=== PATIENT | male | born 1940 | race Caucasian/White ===

== ENCOUNTER → 2017-03-26 | Outpatient (CLI) | payer MEDICARE, MEDICAID ==
[~2017-03-26] MED LIST: AMLODIPINE BESYL5 MG PO; BACTROBAN CREAM15 GM PO; CIPROFLOXACIN500 MG PO; CLOPIDOGREL75 MG PO; JANUVIA100 MG PO; KENALOG 0.025%15 GM T; METFORMIN HCL1000 MG PO; NOVOLOG 70/30 M10 ML SC; OMEPRAZOLE D/R20 MG PO; ZITHROMAX250 MG PO; ZOFRAN4 MG PO
[2017-03-26 07:58] LABS: BASO # 0.1 10*3/uL (0.0-0.1); BASO % 1.3 % (0.0-1.0); EOS # 0.2 10*3/uL (0.0-0.4); EOS % 2.6 % (1.0-4.0); HEMATOCRIT 37.1 % (42.0-52.0); HEMOGLOBIN 12.3 g/dl (14.0-18.0); LYMPH # 1.8 10*3/uL (1.3-4.4); LYMPH % 23.1 % (27.0-41.0); MEAN CELL VOLUME 88.5 fl (80.0-94.0); MEAN CORPUSCULAR HGB 29.4 pg (27.0-31.0); MEAN CORPUSCULAR HGB CONC 33.2 g/dl (33.0-37.0); MEAN PLATELET VOLUME 9.4 fl (9.6-12.3); MONO # 0.8 10*3/uL (0.1-1.0); MONO % 10.2 % (3.0-9.0); NEUT # 4.7 10*3/uL (2.3-7.9); NEUT % 62.5 % (47.0-73.0); PLATELET COUNT AUTOMATED 314 10*3/uL (130-400); RED BLOOD COUNT 4.19 10*6/uL (4.50-5.90); RED CELL DISTRI WIDTH 13.1 % (0-14.5); WHITE BLOOD COUNT 7.6 10*3/uL (4.8-10.8)
[2017-03-26 08:18] LABS: ALBUMIN 3.6 gm/dl (3.1-4.5); ALKALINE PHOSPHATASE 63 U/L (45-117); BUN 19 mg/dl (7-24); CHLORIDE 99 mmol/L (98-107); CHOLESTEROL 168 mg/dL (<200); CREATININE 1.38 mg/dL (0.70-1.30); HDL CHOLESTEROL 46 mg/dl (40-60); LDL CHOLESTEROL 73 mg/dL (9-159); SGOT/AST 13 IU/L (3-35); SGPT/ALT 18 U/L (12-78); SODIUM 135 mmol/L (136-145); TOTAL PROTEIN 7.5 gm/dL (6.4-8.2); TRIGLYCERIDES 243 mg/dl (<150); VLDL CHOLESTEROL 49 mg/dL (6-40)
== END | disposition home or self-care (01) ==
LOC: LAB 07:28
PROVIDERS: Internal Medicine
DX: Z12.5 Encounter for screening for malignant neoplasm of prostate (principal); E78.5 Hyperlipidemia, unspecified; E11.9 Type 2 diabetes mellitus without complications; I10 Essential (primary) hypertension

== ENCOUNTER 2017-04-08 16:13 | Inpatient (IN) | payer MEDICARE, MEDICAID ==
[~2017-04-08] VITALS: Ht 175.3 cm; Wt 136.2 kg
--- NOTE | ~2017-04-08 | ST ---
[place], [place] EXERCISE STRESS TEST REPORT NAME: MIR VALIENTE UNIT #: [id number] ROOM: 508 DOCTOR: MARCO A PHAM MD BIRTHDATE: [birth year] DOS: 04/12/2017 REFERRING PHYSICIAN: Dr. Alexander. INDICATION: Elevated troponin. The patient underwent standard protocol Lexiscan stress EKG. The patient's baseline EKG showed atrial fibrillation with left bundle branch block. Baseline heart rate 72 beats per minute with a blood pressure of 138/82. The patient's peak heart rate 84 with a blood pressure 130/72. The patient's EKG stress was nondiagnostic secondary to left bundle branch block. No chest pain. No significant arrhythmias were noted. SUMMARY OF FINDINGS: Nondiagnostic Lexiscan stress EKG. Please see separate report for perfusion scan results. MARCO A PHAM MD CM:STRESS:EXERCISE STRESS TEST REPORT [id number] MARCO A PHAM MD
[2017-04-08] MEDS ORDERED: ASPIRIN CHEWABL81 MG PO (16:19)
[2017-04-08] MEDS ORDERED: SIMVASTATIN40 MG PO (16:20)
[2017-04-08] MEDS ORDERED: COREG6.25 MG PO (16:20)
[2017-04-08 16:21] VITALS: BP 148/94
[2017-04-08] MEDS ORDERED: OMEPRAZOLE20 M2 PO (16:21)
[2017-04-08 16:54] LABS: BASO % 0.2 % (0.0-1.0); EOS # 0.1 10*3/uL (0.0-0.4); EOS % 0.7 % (1.0-4.0); HEMATOCRIT 34.5 % (42.0-52.0); HEMOGLOBIN 12.4 g/dl (14.0-18.0); LYMPH # 1.5 10*3/uL (1.3-4.4); LYMPH % 11.9 % (27.0-41.0); MEAN CELL VOLUME 82.1 fl (80.0-94.0); MEAN CORPUSCULAR HGB 29.5 pg (27.0-31.0); MEAN CORPUSCULAR HGB CONC 35.9 g/dl (33.0-37.0); MEAN PLATELET VOLUME 8.8 fl (9.6-12.3); MONO # 1.1 10*3/uL (0.1-1.0); MONO % 9.1 % (3.0-9.0); NEUT # 9.7 10*3/uL (2.3-7.9); NEUT % 77.7 % (47.0-73.0); PLATELET COUNT AUTOMATED 332 10*3/uL (130-400); RED CELL DISTRI WIDTH 12.3 % (0-14.5); WHITE BLOOD COUNT 12.5 10*3/uL (4.8-10.8)
[2017-04-08 17:10] LABS: ALBUMIN 3.1 gm/dl (3.1-4.5); ALKALINE PHOSPHATASE 59 U/L (45-117); BUN 15 mg/dl (7-24); CHLORIDE 81 mmol/L (98-107); CREATININE 1.13 mg/dL (0.70-1.30); MAGNESIUM 1.6 mg/dL (1.5-2.1); POTASSIUM 3.7 mmol/L (3.5-5.1); SGOT/AST 17 IU/L (3-35); SGPT/ALT 16 U/L (12-78); TOTAL PROTEIN 7.1 gm/dL (6.4-8.2)
[2017-04-08 17:15] LABS: SODIUM 116 mmol/L (136-145); TROPONIN I 0.048 ng/ml (<0.045)
--- NOTE | 2017-04-08 18:40 | NUR ---
A 76, admitted to ICCU, under the services of SAMEER Multani DO with a diagnosis of hyponatremia, elevated troponin. Chief complaint is diarrhea and vomiting. Patient arrived via stretcher from ER. Monitor applied. Initial assessment completed. Vital signs taken and recorded. SAMEER MULTANI DO notified of admission to the unit. Orders received. See assessment for past medical history, medications and allergies. Patient and/or family oriented to unit. [facility] ICCU visitation policy reviewed. Clothing/patient valuable form completed. CAMMY GRANADO
--- NOTE | 2017-04-08 19:57 | NUR ---
1929 DR. PHAM ANSWERED BEEP - NEW ORDERS RECEIVED. [facility] CL[facility]. MED REC VERIFIED WITH LIST FROM SON. 1952 IV FLUIDS STARTED PER ORDER. PT RESTING IN BED TALKING WITH VISITORS. ALERT. NO N/V NOTED AT PRESENT.
[2017-04-08 20:00] VITALS: BP 152/73
[2017-04-08 20:08] LABS: INTERNATIONAL NORM RATIO 1.1 (2.0-3.5)
--- NOTE | 2017-04-08 21:10 | NUR ---
DR. GAMINO HERE AND MADE AWARE THAT PT MED REC IS DONE.
--- NOTE | 2017-04-08 22:06 | NUR ---
PT RESTING IN BED WITH EYES CLOSED. APPEARS TO BE SLEEPING. URINAL AT BEDSIDE. INFORMED EARLIER THAT URINE SPECIMEN IS NEEDED. HEPARIN GTT INFUSING WELL. REMAINS WITHOUT C/O'S CHEST PAIN OR DISCOMFORT.
--- NOTE | 2017-04-08 23:14 | NUR ---
2300 TYLENOL 2 PO GIVEN FOR C/O'S BILATERAL SHOULDER PAIN. DOES NOT RATE. WILL MONITOR.
[2017-04-08 23:23] LABS: BILIRUBIN NEGATIVE (NEGATIVE); BLOOD NEGATIVE (NEGATIVE); CLARITY CLEAR (CLEAR); COLOR YELLOW (YELLOW); GLUCOSE NEGATIVE (NEGATIVE); KETONE NEGATIVE (NEGATIVE); LEUKO ESTERASE NEGATIVE (NEGATIVE); NITRITE NEGATIVE (NEGATIVE); SPECIFIC GRAVITY 1.015 (1.005-1.030); UROBILINOGEN 0.2 E.U./dl (0.2-1.0)
[2017-04-08 23:29] LABS: BUN 15 mg/dl (7-24); CHLORIDE 81 mmol/L (98-107); CREATININE 1.05 mg/dL (0.70-1.30); POTASSIUM 3.4 mmol/L (3.5-5.1)
[2017-04-08 23:30] LABS: BACTERIA 1+; WBC 0-2 wbc/hpf (0-5)
[2017-04-08 23:37] LABS: SODIUM 117 mmol/L (136-145)
--- NOTE | 2017-04-08 23:48 | NUR ---
DR. DEE BEEPED WITH BLOOD WORK RESULTS.
[2017-04-09] VITALS: BP 161/80
--- NOTE | 2017-04-09 00:08 | NUR ---
EARLIER TYLENOL EFFECTIVE. RESTING IN BED WITH EYES CLOSED. APPEARS TO BE SLEEPING. IV FLUIDS AND HEPARIN GTT CONT. NO DISTRESS NOTED.
--- NOTE | 2017-04-09 00:14 | NUR ---
DR. DEE ANSWERED - ORDERS RECEIVED.
[2017-04-09 04:00] VITALS: BP 158/80
[2017-04-09 05:58] LABS: BASO # 0.1 10*3/uL (0.0-0.1); BASO % 0.5 % (0.0-1.0); EOS # 0.2 10*3/uL (0.0-0.4); EOS % 1.7 % (1.0-4.0); HEMATOCRIT 31.9 % (42.0-52.0); HEMOGLOBIN 11.5 g/dl (14.0-18.0); LYMPH # 2.2 10*3/uL (1.3-4.4); LYMPH % 20.2 % (27.0-41.0); MEAN CELL VOLUME 82.4 fl (80.0-94.0); MEAN CORPUSCULAR HGB 29.7 pg (27.0-31.0); MEAN CORPUSCULAR HGB CONC 36.1 g/dl (33.0-37.0); MEAN PLATELET VOLUME 8.9 fl (9.6-12.3); MONO # 1.2 10*3/uL (0.1-1.0); MONO % 10.6 % (3.0-9.0); NEUT # 7.3 10*3/uL (2.3-7.9); NEUT % 66.3 % (47.0-73.0); PLATELET COUNT AUTOMATED 290 10*3/uL (130-400); RED BLOOD COUNT 3.87 10*6/uL (4.50-5.90); RED CELL DISTRI WIDTH 12.4 % (0-14.5); WHITE BLOOD COUNT 11.1 10*3/uL (4.8-10.8)
[2017-04-09 06:01] LABS: INTERNATIONAL NORM RATIO 1.1 (2.0-3.5)
[2017-04-09 06:06] LABS: BUN 18 mg/dl (7-24); CHLORIDE 82 mmol/L (98-107); CHOLESTEROL 123 mg/dL (<200); CREATININE 1.04 mg/dL (0.70-1.30); HDL CHOLESTEROL 50 mg/dl (40-60); LDL CHOLESTEROL 56 mg/dL (9-159); MAGNESIUM 1.6 mg/dL (1.5-2.1); PHOSPHOROUS 2.5 mg/dL (2.5-4.9); POTASSIUM 3.5 mmol/L (3.5-5.1); TRIGLYCERIDES 85 mg/dl (<150); VLDL CHOLESTEROL 17 mg/dL (6-40)
--- NOTE | 2017-04-09 06:06 | NUR ---
SITTING UP ON THE SIDE OF THE BED WATCHING TV. IV FLUIDS AND HEPARIN GTT CONT. REMAINS WITHOUT C/O'S. NO N/V NOTED. REMAINS AFEBRILE. CONDITION GUARDED.
[2017-04-09 06:13] LABS: SODIUM 117 mmol/L (136-145)
--- NOTE | 2017-04-09 06:47 | NUR ---
DR. DEE BEEPED WITH AM BLOOD WORK.
[2017-04-09 07:27] LABS: VITAMIN D, 25-HYDROXY 13.2 ng/mL (30-100)
[2017-04-09 08:00] VITALS: BP 138/74
--- NOTE | 2017-04-09 08:05 | NUR ---
Shift chart check completed.24 HR chart check completed.
--- NOTE | 2017-04-09 08:30 | NUR ---
Machine Printer Hose in to talk to patient. Patient states lives at HOME with HIS DAUGHTER. There are 2 steps in the home. Physician: DR PAULA Pharmacy: [facility] Home health services: NONE Patient's level of ADLs: MINIMAL ASSIST Patient has working utilities: YES DME: HAS WALKER THAT HE HAS BEEN USING LATELY Follow-up physician's appointment after d/c: WILL BE MADE PRIOR TO DC Does patient want to access PORTAL?: Discharge plan PT WANTS TO GO HOME. SONIA DUQUE
--- NOTE | 2017-04-09 08:30 | NUR ---
ON ASSESSMENT PATIENT RESTING, ALERT AND ORIENTED. NO VOICED COMPLAINTS OF PAIN. IV FLUIDS INFUSING AT 75ML/HR PER LATEST ORDER FROM DR DEE. HEPARIN DRIP AT 12 UNITS/KG. PT HAD BEEN INCONTINENT OF URINE IN ADDITION TO USING THE URINAL. ASSISTED TO PERFORM BATHING. SEE ALL APPROPRIATE INTERVENTIONS.
[2017-04-09 12:00] VITALS: BP 142/75
--- NOTE | 2017-04-09 12:42 | NUR ---
DR PHAM HAS VISITED.
[2017-04-09 13:28] LABS: BUN 17 mg/dl (7-24); CHLORIDE 83 mmol/L (98-107); PHOSPHOROUS 2.3 mg/dL (2.5-4.9); POTASSIUM 3.7 mmol/L (3.5-5.1)
[2017-04-09 13:32] LABS: SODIUM 115 mmol/L (136-145)
--- NOTE | 2017-04-09 13:50 | NUR ---
DR MARCOS NOTIFIED OF CRITICAL NA LEVEL OF 115.
--- NOTE | 2017-04-09 15:06 | NUR ---
DR DEE HAS VISITED. IV FLUIDS CHANGED PER ORDER. SUBQ LOVENOX GIVEN AND HEPARIN DRIP DISCONTINUED PER ORDER.
--- NOTE | 2017-04-09 15:17 | NUR ---
SLEEPING SOUNDLY AT THIS TIME. HR TO MID 40'S WHILE SLEEPING SOUNDLY.
[2017-04-09 16:00] VITALS: BP 144/79
--- NOTE | 2017-04-09 17:43 | NUR ---
UP IN CHAIR FOR DINNER. FAMILY AT THE BEDSIDE.
[2017-04-09 20:00] VITALS: BP 128/64
[2017-04-09 20:19] LABS: BUN 20 mg/dl (7-24); CHLORIDE 81 mmol/L (98-107); CREATININE 1.23 mg/dL (0.70-1.30); POTASSIUM 3.6 mmol/L (3.5-5.1)
[2017-04-09 20:20] LABS: SODIUM 117 mmol/L (136-145)
--- NOTE | 2017-04-09 20:31 | NUR ---
1943 UP TO BS WITH 1 ASSIST. WEAK. 1999 HAD LARGE BM BROWN MUSHY STOOL. BACK TO BED WITH 1 ASSIST. HOB ELEVATED. CALL LIGHT IN REACH. SIDE RAILS UP X'S 2. PULSE OX 97% ON RA. IV FLUIDS CONT. NO C/O'S PAIN OR DISCOMFORT VOICED. ALERT AND PLEASANT. AFERILE. NO DISTRESS NOTED.
--- NOTE | 2017-04-09 20:54 | NUR ---
2026 DR DEE NOTIFIED OF BMP RESULTS. NO NEW ORDERS RECEIVED.
--- NOTE | 2017-04-09 22:06 | NUR ---
RESTING IN BED WITH EYES CLOSED. IV FLUIDS CONT. CONDITION GUARDED.
--- NOTE | 2017-04-09 23:30 | NUR ---
PATIENT LYING IN BED, DENIES ANY MAUSEA OR VOMITING. PATIENT STATED HE FELT WEAKER. WILL CONTINUE TO MONITOR. PATIENT LEFT WITH CALL LIGHT IN REACH.
[2017-04-10] VITALS: BP 144/66
--- NOTE | 2017-04-10 03:00 | NUR ---
PATIENT UP TO BEDSIDE TO USE URINAL, PATIENT WAS ABLE TO GET SOME IN URINAL, MOST ON THE FLOOR AND BED. PATIENT CLEANED UP AND BED MADE. ENCOURAGED PATIENT TO USE CALL LIGHT AND ASK FOR ASSISTANCE WITH URINAL OR TO BEDSIDE.
[2017-04-10 04:00] VITALS: BP 134/62
[2017-04-10 05:32] LABS: BUN 23 mg/dl (7-24); CHLORIDE 81 mmol/L (98-107); CREATININE 1.32 mg/dL (0.70-1.30); MAGNESIUM 1.6 mg/dL (1.5-2.1); PHOSPHOROUS 2.7 mg/dL (2.5-4.9); POTASSIUM 3.3 mmol/L (3.5-5.1)
--- NOTE | 2017-04-10 05:37 | NUR ---
PATIENT STATED THAT HE WAS GETTING NERVOUS AFTER ONCE AGAIN URINATING ALL OVER THE FLOOR. PATIENT DIDNT CALL FOR HELP, TRIED TO USE URINAL AND MISSED. PATIENT STATED THAT TYLENOL HELPS HIM FOR NERVOUSNESS. WAS GIVEN. WILL MONITOR AND REASSESS.
[2017-04-10 05:46] LABS: SODIUM 118 mmol/L (136-145)
[2017-04-10 06:08] LABS: BASO # 0.1 10*3/uL (0.0-0.1); BASO % 0.4 % (0.0-1.0); EOS # 0.2 10*3/uL (0.0-0.4); EOS % 1.6 % (1.0-4.0); HEMATOCRIT 31.7 % (42.0-52.0); HEMOGLOBIN 11.2 g/dl (14.0-18.0); LYMPH # 2.1 10*3/uL (1.3-4.4); MEAN CELL VOLUME 84.3 fl (80.0-94.0); MEAN CORPUSCULAR HGB 29.8 pg (27.0-31.0); MEAN CORPUSCULAR HGB CONC 35.3 g/dl (33.0-37.0); MEAN PLATELET VOLUME 9.5 fl (9.6-12.3); MONO # 1.3 10*3/uL (0.1-1.0); MONO % 10.4 % (3.0-9.0); NEUT # 8.6 10*3/uL (2.3-7.9); NEUT % 70.1 % (47.0-73.0); PLATELET COUNT AUTOMATED 295 10*3/uL (130-400); RED BLOOD COUNT 3.76 10*6/uL (4.50-5.90); RED CELL DISTRI WIDTH 12.6 % (0-14.5); WHITE BLOOD COUNT 12.2 10*3/uL (4.8-10.8)
--- NOTE | 2017-04-10 07:16 | NUR ---
Shift chart check completed.24 HR chart check completed.
[2017-04-10 08:00] VITALS: BP 122/50
--- NOTE | 2017-04-10 08:00 | NUR ---
ON ASSESSMENT PATIENT ALERT,ORIENTED, ON ROOM AIR. NO VOICED COMPLAINTS OF PAIN. IV FLUIDS CONTINUE PER ORDER.
--- NOTE | 2017-04-10 09:48 | NUR ---
IF PT NEEDS XARELTO OR ELIQUIS AT IN---INSURANCE PAYS 100% FOR XARETLO. NO COPAY. IF ELIQUIS NEEDED, IT NEEDS PREAUTH.
[2017-04-10 12:00] VITALS: BP 170/69
[2017-04-10 13:25] LABS: BUN 21 mg/dl (7-24); CHLORIDE 85 mmol/L (98-107); CREATININE 1.21 mg/dL (0.70-1.30); POTASSIUM 3.9 mmol/L (3.5-5.1); SODIUM 121 mmol/L (136-145)
--- NOTE | 2017-04-10 15:03 | NUR ---
PHYSICAL THERAPY EVALUATION COMPLETED. PATIENT SITTING UP IN CHAIR UPON THIS CLINICIAN'S ARRIVAL WITH IV IN L UE WHICH WAS UNDISTURBED THROUGHOUT THIS EVAL. THIS CLINICAN SPOKE WITH RN PRIOR TO ENTERING PATIENT'S ROOM WITH OK TO PROCEDE. PATIENT DENIED PAIN EVEN WITH UE AND LE MOVEMENT TODAY. SIT TO STAND FROM CHAIR WITH 3 ATTEMPTS, VERBAL AND MANUAL CUES WITH INSTRUCTION FOR "NOSE OVER TOES" AND PATIENT STILL REQUIRED MOD A X 1; ABLE TO WALK A FEW STEPS WITH WALKER AND MORE STEADY STANDING WITH WALKER. B LE STRENGTH EQUAL AND WFL. PATIENT PERFORMED SEATED LE THER EX 10 REPS. PHYSICAL THERAPY EVALUATION COMPLETED AT MODERATE COMPLEXITY. THANK YOU FOR THIS REFERRAL. ELIER PARIKH,PT
[2017-04-10 16:00] VITALS: BP 120/58
--- NOTE | 2017-04-10 17:45 | NUR ---
AMANDA PHAM AND AMANDA (RENAL) VISITED EARLIER. NO NEW ORDERS FROM THEM. PT HAS EVALUATED THE PATIENT. SEE ALL APPROPRIATE INTERVENTIONS.
--- NOTE | 2017-04-10 19:40 | NUR ---
TYLENOL FOR GENERALIZED ACHES AND THEN ASSISTED BACK TO BED. CALL LIGHT IN REACH.
[2017-04-10 20:00] VITALS: BP 146/75
--- NOTE | 2017-04-10 22:14 | NUR ---
TOLERATED HIS BATH WELL AND ATE PM SNACK.
--- NOTE | 2017-04-10 23:00 | NUR ---
TYLENOL WAS EFFECTIVE FOR PAIN PER PT.
[2017-04-11] VITALS: BP 142/65
--- NOTE | 2017-04-11 | NUR ---
PATIENT LYING IN BED, REQUESTED A TYLENOL FOR NERVOUSNESS AND SLIGHT HEADACHE. WAS GIVEN. WILL MONITOR AND REASSESS.
[2017-04-11 04:00] VITALS: BP 144/66
[2017-04-11 04:28] LABS: BASO # 0.1 10*3/uL (0.0-0.1); BASO % 0.5 % (0.0-1.0); EOS # 0.2 10*3/uL (0.0-0.4); HEMATOCRIT 30.3 % (42.0-52.0); HEMOGLOBIN 10.7 g/dl (14.0-18.0); LYMPH # 1.4 10*3/uL (1.3-4.4); LYMPH % 12.5 % (27.0-41.0); MEAN CELL VOLUME 85.8 fl (80.0-94.0); MEAN CORPUSCULAR HGB 30.3 pg (27.0-31.0); MEAN CORPUSCULAR HGB CONC 35.3 g/dl (33.0-37.0); MEAN PLATELET VOLUME 9.4 fl (9.6-12.3); MONO # 1.2 10*3/uL (0.1-1.0); MONO % 10.6 % (3.0-9.0); NEUT # 8.3 10*3/uL (2.3-7.9); NEUT % 73.9 % (47.0-73.0); PLATELET COUNT AUTOMATED 284 10*3/uL (130-400); RED BLOOD COUNT 3.53 10*6/uL (4.50-5.90); RED CELL DISTRI WIDTH 12.8 % (0-14.5); WHITE BLOOD COUNT 11.2 10*3/uL (4.8-10.8)
[2017-04-11 04:42] LABS: BUN 22 mg/dl (7-24); CHLORIDE 88 mmol/L (98-107); CREATININE 1.18 mg/dL (0.70-1.30); MAGNESIUM 1.8 mg/dL (1.5-2.1); PHOSPHOROUS 2.1 mg/dL (2.5-4.9); SODIUM 121 mmol/L (136-145)
[2017-04-11 08:00] VITALS: BP 155/79
--- NOTE | 2017-04-11 11:05 | NUR ---
PHYSICAL THERAPY Patient was being attended to by the nurse at this time. Will check back later. FLACO KELLY TOBACCO PACKING MACHINE OPERATOR
--- NOTE | 2017-04-11 11:49 | NUR ---
PATIENT REQUESTING TYLENOL FOR FEELING "JITTERY". MEDICATED PER PRN ORDER. WILL CONTINUE TO MONITOR.
[2017-04-11 12:00] VITALS: BP 133/64
--- NOTE | 2017-04-11 13:56 | NUR ---
PHYSICAL THERAPY Patient presented to therapy in seated position with IV attached, Telemetry, and NO spO2. Patient reports feeling much better since being admitted to the hospital. Patient performed sit to stand transfer with CGA X 1. Patient performed gait with W/W with CGA X 1 for 140' x 1, around entire nurses station in ICCU , and back to his chair in his room. Patient performed seated ther ex to antony. LEs x 20 reps each in all planes of mvmt. Patient was 25 minutes 1:1 with this NATIONAL SALES REPRESENTATIVE. Kalia Han NATIONAL SALES REPRESENTATIVE
[2017-04-11 16:00] VITALS: BP 129/57
[2017-04-11 20:00] VITALS: BP 174/68
--- NOTE | 2017-04-11 20:30 | NUR ---
SITTING AT BEDSIDE. RESPIRATIONS EASY. LUNGS DIMINISHED, CLEAR. PULSE OX 99% RA. 2X2 NOTED TO RLQ LOVENOX INJECTION SITE, PATIENT STATES FROM "LAST NIGHT." SOILED DRESSING REMOVED, STILL BLLEDING, FRESH DRESSING APPLIED. +1 BLE EDEMA, DECLINING TEDS. IV FLUIDS INFUSING PER ORDER. CALL LIGHT WITHIN REACH
--- NOTE | 2017-04-11 21:30 | NUR ---
REQUESTED AND RECEIVED TYLENOL PER PRN ORDER TO "HELP ME RELAX". WILL MONITOR
[2017-04-12] VITALS: BP 133/61
--- NOTE | 2017-04-12 00:30 | NUR ---
CONTINUES TO SLEEP WITH NO DISTRESS NOTED. RESPIRATIONS EASY. VSS. IV FLUIDS MAINTAINED. BED ALARM IN PLACE FOR SAFETY
--- NOTE | 2017-04-12 06:00 | NUR ---
SLEPT THROUGHOUT NIGHT WITH NO DISTRESS NOTED. NPO STATUS MAINTAINED FOR STRESS TEST TODAY. IV FLUIDS MAINTAINED. CALL LIGHT WITHIN REACH. NO VOICED COMPLAINTS THIS SHIFT
[2017-04-12 07:32] LABS: BUN 16 mg/dl (7-24); CHLORIDE 98 mmol/L (98-107); CREATININE 1.17 mg/dL (0.70-1.30); MAGNESIUM 1.8 mg/dL (1.5-2.1); PHOSPHOROUS 2.4 mg/dL (2.5-4.9); POTASSIUM 4.4 mmol/L (3.5-5.1); SODIUM 131 mmol/L (136-145)
[2017-04-12 08:00] VITALS: BP 154/60
--- NOTE | 2017-04-12 08:00 | NUR ---
USER ACCEPTANCE TESTER VS. DISCUSSED SNF. PT DECLINES. STATES HE NEEDS TO GET HOME AND CARE FOR HIS DAUGHTER. ALSO REFUSES HOME HEALTH.
--- NOTE | 2017-04-12 12:12 | NUR ---
INFORMED SIGNED CONSENT OBTAINED FOR LEXISCAN STRESS TEST WITH DR PHAM. RESTING EKG AFIB LBBB HR 72 BP 138/82. PULSE OX 96, LUNGS CLEAR. PT COMPLETED ONE MINUTE OF A LEXISCAN PROTOCOL WITH PT RECEIVING LEXISCAN 0.4MG IV OVER 10 SECONDS. OCCASIONAL PVC, BIGEMNY NOTED. PT HAD NO SYMPTOMS. LAST RECOVERY HR OF 86 BP 130/72. PT IN STABLE CONDITION, AWAITING NUCLEAR IMAGES.
--- NOTE | 2017-04-12 13:10 | NUR ---
PHYSICAL THERAPY Gwyn off the floor this PM physical therapy visit. ODALIS KIDD PTA.
--- NOTE | 2017-04-12 14:18 | NUR ---
PHYSICAL THERAPY CO-SIGN I approve of the Phyical Therapy notes written above. NAKUL BARBOUR PT
[2017-04-12 16:00] VITALS: BP 138/61
--- NOTE | 2017-04-12 16:30 | NUR ---
PT RESTING UP IN CHAIR, NO DISTRESS NOTED. BLOOD GLUCOSE CHECKED AT THIS TIME, SCHEDULED 70/30 AND GLUCOPHAGE GIVEN, PT DENIED SLIDING SCALE COVERAGE. PT DENIES ANY COMPLAINTS. CALL LIGHT WITHIN REACH.
[2017-04-12 20:00] VITALS: BP 132/50
--- NOTE | 2017-04-12 20:19 | NUR ---
RESTING IN BED WATCHING TV. NO ACUTE DISTRESS NOTED. RESPIRATIONS EASY. LUNGS DIMINISHED, CLEAR. PULSE OX 99% RA. TRACE BLE EDEMA NOTED. REQUESTED AND RECEIVED TYLENOL PER PRN ORDER TO "HELP ME REST." CALL LIGHT WITHIN REACH. WILL MONITOR
--- NOTE | 2017-04-12 22:00 | NUR ---
EARLIER TYLENOL EFFECTIVE. RESTING WITH EYES CLOSED. RESPIRATIONS EASY. CALL LIGHT WITHIN REACH
[2017-04-13] VITALS: BP 126/57
--- NOTE | 2017-04-13 00:30 | NUR ---
SITTING IN RECLINER WATCHING TV. RESPIRATIONS EASY. VSS. CALL LIGHT WITHIN REACH. NO VOICED COMPLAINTS
--- NOTE | 2017-04-13 06:00 | NUR ---
SLEPT THROUGHOUT NIGHT WITH NO DISTRESS NOTED. RESPIRATIONS EASY. CALL LIGHT WITHIN REACH. NO VOICED COMPLAINTS THIS SHIFT
[2017-04-13 06:35] LABS: BASO # 0.1 10*3/uL (0.0-0.1); BASO % 0.8 % (0.0-1.0); EOS # 0.3 10*3/uL (0.0-0.4); EOS % 2.2 % (1.0-4.0); HEMATOCRIT 30.5 % (42.0-52.0); HEMOGLOBIN 10.4 g/dl (14.0-18.0); LYMPH # 1.8 10*3/uL (1.3-4.4); LYMPH % 15.4 % (27.0-41.0); MEAN CELL VOLUME 87.6 fl (80.0-94.0); MEAN CORPUSCULAR HGB 29.9 pg (27.0-31.0); MEAN CORPUSCULAR HGB CONC 34.1 g/dl (33.0-37.0); MEAN PLATELET VOLUME 9.6 fl (9.6-12.3); MONO # 0.9 10*3/uL (0.1-1.0); MONO % 7.9 % (3.0-9.0); NEUT # 8.4 10*3/uL (2.3-7.9); NEUT % 73.1 % (47.0-73.0); PLATELET COUNT AUTOMATED 256 10*3/uL (130-400); RED BLOOD COUNT 3.48 10*6/uL (4.50-5.90); RED CELL DISTRI WIDTH 13.3 % (0-14.5); WHITE BLOOD COUNT 11.5 10*3/uL (4.8-10.8)
[2017-04-13 06:48] LABS: ALBUMIN 3.3 gm/dl (3.1-4.5); BUN 15 mg/dl (7-24); CHLORIDE 100 mmol/L (98-107); CREATININE 1.21 mg/dL (0.70-1.30); MAGNESIUM 1.9 mg/dL (1.5-2.1); PHOSPHOROUS 2.7 mg/dL (2.5-4.9); POTASSIUM 4.5 mmol/L (3.5-5.1); SODIUM 132 mmol/L (136-145)
[2017-04-13 08:00] VITALS: BP 140/70
[2017-04-13] MEDS ORDERED: VITAMIN D-32000 UNI1 PO (09:35)
[2017-04-13] MEDS ORDERED: AMLODIPINE BESY10 MG PO (09:35)
[2017-04-13] MEDS ORDERED: COREG12.5 M1 PO (09:35)
[2017-04-13] MEDS ORDERED: XARE20MG PO (09:35)
--- NOTE | 2017-04-13 10:38 | NUR ---
CALL PLACED TO DR PHAM'S ANSWERING SERVICE TO CONFIRM DISCHARGE MEDICATIONS.
--- NOTE | 2017-04-13 11:19 | NUR ---
DR HYDE RETURNED PAGE, STATES CURRENT MEDS ARE OK FOR DISCHARGE.
[2017-04-13 12:00] VITALS: BP 136/86
--- NOTE | 2017-04-13 14:00 | NUR ---
Discharge instructions reviewed with patient/family. Patient receptive and verbalizes understanding. Follow-up care arranged. Written instructions given to patient/family. IV site and secret service agent removed. Pt transported to [facility] via wheelchair, accompanied by staff and family. ARI VILLAGRAN
== END 2017-04-13 14:00 | disposition home or self-care (01) | DRG 640 ==
LOC: ED 16:13 → ICCU 17:20 → EDHOLD 17:20 → ICCU 17:27 → 5E 04-11 17:37
PROVIDERS: Emergency Medicine; Internal Medicine; Internal Medicine Cardiovascular Disease; Internal Medicine Nephrology; Student in an Organized Health Care Education/Training Program; ADMIT Emergency Medicine
PROC: 4A02XM4 Measurement of Cardiac Total Activity, External Approach (ICD-10-PCS; principal; 2017-04-12)
PROC: 3E073KZ Introduction of Other Diagnostic Substance into Coronary Artery, Percutaneous Approach (ICD-10-PCS; principal; 2017-04-12)
DX: E87.1 Hypo-osmolality and hyponatremia (principal); E43 Unspecified severe protein-calorie malnutrition; E11.9 Type 2 diabetes mellitus without complications; D64.9 Anemia, unspecified; I48.91 Unspecified atrial fibrillation; Z68.41 Body mass index [BMI] 40.0-44.9, adult; I44.7 Left bundle-branch block, unspecified; I10 Essential (primary) hypertension; E66.01 Morbid (severe) obesity due to excess calories; D72.810 Lymphocytopenia; E87.8 Other disorders of electrolyte and fluid balance, not elsewhere classified; I25.10 Atherosclerotic heart disease of native coronary artery without angina pectoris; E78.5 Hyperlipidemia, unspecified; Z95.5 Presence of coronary angioplasty implant and graft; Z79.899 Other long term (current) drug therapy; Z89.422 Acquired absence of other left toe(s); Z83.3 Family history of diabetes mellitus; Z82.49 Family history of ischemic heart disease and other diseases of the circulatory system; Z83.79 Family history of other diseases of the digestive system; Z79.82 Long term (current) use of aspirin; Z79.84 Long term (current) use of oral hypoglycemic drugs; Z79.4 Long term (current) use of insulin

== ENCOUNTER 2017-04-22 08:44 | Inpatient (IN) | payer MEDICARE, MEDICAID ==
[~2017-04-22] VITALS: Ht 175.2 cm; Wt 126.8 kg
[~2017-04-22 08:44] MED LIST changes: -CARVEDILOL25 MG PO; -CLARITIN10 MG PO; -DOXYCYCLINE100 M3 PO; -FUROSEMIDE40 MG PO
[2017-04-22 08:51] VITALS: BP 143/66
[2017-04-22 09:12] LABS: BASO # 0.1 10*3/uL (0.0-0.1); EOS # 0.2 10*3/uL (0.0-0.4); EOS % 2.3 % (1.0-4.0); HEMATOCRIT 28.4 % (42.0-52.0); HEMOGLOBIN 9.3 g/dl (14.0-18.0); LYMPH # 0.9 10*3/uL (1.3-4.4); LYMPH % 11.2 % (27.0-41.0); MEAN CELL VOLUME 90.4 fl (80.0-94.0); MEAN CORPUSCULAR HGB 29.6 pg (27.0-31.0); MEAN CORPUSCULAR HGB CONC 32.7 g/dl (33.0-37.0); MONO # 0.8 10*3/uL (0.1-1.0); MONO % 9.1 % (3.0-9.0); NEUT # 6.2 10*3/uL (2.3-7.9); PLATELET COUNT AUTOMATED 312 10*3/uL (130-400); RED BLOOD COUNT 3.14 10*6/uL (4.50-5.90); RED CELL DISTRI WIDTH 14.3 % (0-14.5); WHITE BLOOD COUNT 8.2 10*3/uL (4.8-10.8)
[2017-04-22 09:21] LABS: ACT PARTIAL THROMBO TIME 36.3 SECONDS (20.8-31.5); INTERNATIONAL NORM RATIO 1.2 (2.0-3.5)
[2017-04-22 09:27] LABS: ALBUMIN 3.2 gm/dl (3.1-4.5); ALKALINE PHOSPHATASE 72 U/L (45-117); BUN 22 mg/dl (7-24); CHLORIDE 102 mmol/L (98-107); CREATININE 1.36 mg/dL (0.70-1.30); POTASSIUM 4.5 mmol/L (3.5-5.1); SGOT/AST 11 IU/L (3-35); SGPT/ALT 18 U/L (12-78); SODIUM 135 mmol/L (136-145); TROPONIN I 0.017 ng/ml (<0.045)
[2017-04-22 09:51] VITALS: BP 136/88
[2017-04-22 10:31] LABS: IRON 27 ug/dL (65-175); TOTAL IRON BINDING CAPACITY 299 ug/dl (250-450)
--- NOTE | 2017-04-22 10:50 | NUR ---
A 76, admitted to 4E, under the services of CHERI Zamora DO with a diagnosis of CHF. Chief complaint is SHORTNESS OF BREATH. Patient arrived via stretcher from ER. Monitor applied. Initial assessment completed. Vital signs taken and recorded. DR. BARBOZA (DR. MCKEON) notified of admission to the unit. See assessment for past medical history, medications and allergies. Patient and/or family oriented to unit. Clothing/patient valuable form completed. ELIER ANDERSEN
[2017-04-22 11:10] VITALS: BP 160/78
[2017-04-22] MEDS ORDERED: CLARITIN10 MG PO (11:43)
[2017-04-22 12:00] VITALS: BP 156/72
--- NOTE | 2017-04-22 12:19 | NUR ---
HOME MEDICAIONS VARIFIED FROM PHARMACY AND PATIENTS SON. NOTIFIED DR. BARBOZA. PIYUSH TO PLACE UBTLER ORDERED FROM ER FOR ACCURATE I.O
--- NOTE | 2017-04-22 12:54 | NUR ---
BUTLER INSERTED, CLEAR YELLOW URINE OBTAINED. PT TOLERATED WELL.
--- NOTE | 2017-04-22 13:07 | NUR ---
NOTIFIED DR. HYDE OFFICE OF NEW CONSULT. THEY ARE NOTIFYING HIM, AWAIT CALL BACK.
[2017-04-22 16:00] VITALS: BP 160/85
--- NOTE | 2017-04-22 18:17 | NUR ---
BLOOD SUGARS NOT ORDERED HOWEVER PT REQUESTED TO BE CHECKED. BLOOD SUGAR 195.
[2017-04-22 20:00] VITALS: BP 148/63
--- NOTE | 2017-04-22 20:17 | NUR ---
PT. RESTING IN BED. HEP LOCK IN RA ASYMPT. LUNGS DIMINISHED BILAT, PULSE OX 96% ON RA. ABDOMEN SOFTLY DISTENDED AND NORMO. 1+BLE EDEMA NOTED. EDEMA VS OBESITY. BUTLER DRAINING A MODERATE TO LARGE AMT OF CLEAR YELLOW URINE. RESP. EASY AND REG, NO DISTRESS. SLIGHT SOB NOTED WITH EXERTION ONLY, NONE NOTED AT REST. MARYSOL BATISTA RN
[2017-04-23] VITALS: BP 131/64
--- NOTE | 2017-04-23 03:14 | NUR ---
PATIENT RESTING IN BED WITH EYES CLOSED. RESPS EASY AND REGULAR. BED IN LOWEST POSITION, CALL LIGHT IN REACH
--- NOTE | 2017-04-23 03:58 | NUR ---
24 HR chart check completed.
--- NOTE | 2017-04-23 05:56 | NUR ---
ATTEMPTED TO CALL DR VERDUGO ABOUT BUTLER DRAINING CLEAR LIGHT RED URINE. NO ANSWER. PATIENT C/O TENDERNESS TO AREA
[2017-04-23 06:59] LABS: BASO # 0.1 10*3/uL (0.0-0.1); BASO % 0.9 % (0.0-1.0); EOS # 0.2 10*3/uL (0.0-0.4); EOS % 2.4 % (1.0-4.0); HEMATOCRIT 29.4 % (42.0-52.0); HEMOGLOBIN 9.6 g/dl (14.0-18.0); LYMPH # 1.4 10*3/uL (1.3-4.4); MEAN CELL VOLUME 90.2 fl (80.0-94.0); MEAN CORPUSCULAR HGB 29.4 pg (27.0-31.0); MEAN CORPUSCULAR HGB CONC 32.7 g/dl (33.0-37.0); MEAN PLATELET VOLUME 9.2 fl (9.6-12.3); MONO # 0.7 10*3/uL (0.1-1.0); MONO % 8.3 % (3.0-9.0); NEUT # 6.4 10*3/uL (2.3-7.9); NEUT % 72.2 % (47.0-73.0); PLATELET COUNT AUTOMATED 349 10*3/uL (130-400); RED BLOOD COUNT 3.26 10*6/uL (4.50-5.90); RED CELL DISTRI WIDTH 14.2 % (0-14.5); WHITE BLOOD COUNT 8.9 10*3/uL (4.8-10.8)
[2017-04-23 07:21] LABS: ALBUMIN 3.4 gm/dl (3.1-4.5); INTERNATIONAL NORM RATIO 1.3 (2.0-3.5); PHOSPHOROUS 3.9 mg/dL (2.5-4.9); POTASSIUM 4.4 mmol/L (3.5-5.1)
[2017-04-23 07:31] LABS: CREATININE 1.45 mg/dL (0.70-1.30); FREE T4 1.36 ng/dl (0.76-1.46); THYROID STIM HORMONE (HS) 1.05 uIU/ml (0.358-4.75); TOTAL PROTEIN 7.3 gm/dL (6.4-8.2)
[2017-04-23 07:39] LABS: VITAMIN D, 25-HYDROXY 20.8 ng/mL (30-100)
[2017-04-23 08:00] VITALS: BP 138/62
--- NOTE | 2017-04-23 08:30 | NUR ---
Clipper And Turner in to talk to patient. Patient states lives at HOME with HIS DAUGHTER. 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 SON AND DAUGHTER IN LAW CARING FOR HIS DAUGHTER WHILE HE IS HERE. There are 2 steps in the home. Physician: DR PAULA Pharmacy: [facility] health services: NONE Patient's level of ADLs: INDEPENDENT Patient has working utilities: YES DME: WALKER Follow-up physician's appointment after d/c: WILL BE MADE PRIOR TO DC Does patient want to access PORTAL?: Discharge plan HOME. SONIA DUQUE
--- NOTE | 2017-04-23 11:58 | NUR ---
BUTLER CATHETER DISCONTINUED PER ORDER, PATIENT TOLERATED WELL.
[2017-04-23 12:00] VITALS: BP 145/72
--- NOTE | 2017-04-23 12:45 | NUR ---
PT GIVEN TYLENOL PER REQUEST OF LEFT SHOULDER PAIN. ALSO GIVEN MILK OF MAGNESIA AND BISACODYL TO HELP PERISTALSIS.
--- NOTE | 2017-04-23 14:18 | NUR ---
OT EVALUATION COMPLETED AT BS. MODERATE COMPLEXITY DETERMINED BY CHART REVIEW AND OT EVALUATION
--- NOTE | 2017-04-23 15:17 | NUR ---
PATIENT HAS NOT VOIDED SINCE BUTLER DISCONTINUED AT 1145, HAS NO URGE TO VOID, BLADDER SCANNED FOR 0ML URINE.
[2017-04-23 16:17] VITALS: BP 124/44
[2017-04-23 20:00] VITALS: BP 135/70
[2017-04-23 20:40] VITALS: BP 138/54
--- NOTE | 2017-04-23 20:41 | NUR ---
PT MONITOR'S ST ALARM GOING OFF. STRESS ENGINEER PRINTED OUT THREE DIFFERENT STRIPS. AFTER ASSESSMENT OF STRIPS, AND ASSESSMENT OF PT, HE'S STABLE.
--- NOTE | 2017-04-23 22:27 | NUR ---
GAVE PRN TYLENOL FOR PAIN. WILL CONTINUE TO MONITOR
[2017-04-24] VITALS: BP 149/53
[2017-04-24 08:00] VITALS: BP 120/60
[2017-04-24 10:40] LABS: BASO % 0.5 % (0.0-1.0); EOS # 0.2 10*3/uL (0.0-0.4); EOS % 2.4 % (1.0-4.0); HEMATOCRIT 28.4 % (42.0-52.0); HEMOGLOBIN 9.5 g/dl (14.0-18.0); LYMPH # 0.8 10*3/uL (1.3-4.4); LYMPH % 10.1 % (27.0-41.0); MEAN CELL VOLUME 87.9 fl (80.0-94.0); MEAN CORPUSCULAR HGB 29.4 pg (27.0-31.0); MEAN CORPUSCULAR HGB CONC 33.5 g/dl (33.0-37.0); MEAN PLATELET VOLUME 8.7 fl (9.6-12.3); MONO # 0.7 10*3/uL (0.1-1.0); MONO % 8.7 % (3.0-9.0); NEUT # 6.2 10*3/uL (2.3-7.9); NEUT % 77.9 % (47.0-73.0); PLATELET COUNT AUTOMATED 318 10*3/uL (130-400); RED BLOOD COUNT 3.23 10*6/uL (4.50-5.90); RED CELL DISTRI WIDTH 13.7 % (0-14.5)
--- NOTE | 2017-04-24 11:01 | NUR ---
Called patients son and daughter in law, spoke with Margie. I asked which home health agency she was interested in and she stated they changed their mind and would instead like a prescription for out patient therapy at the [facility]. Notified Clari Brewer.
[2017-04-24 11:19] LABS: ALBUMIN 3.3 gm/dl (3.1-4.5); CREATININE 1.42 mg/dL (0.70-1.30); POTASSIUM 3.9 mmol/L (3.5-5.1); TOTAL PROTEIN 7.1 gm/dL (6.4-8.2)
[2017-04-24 12:00] VITALS: BP 121/54
--- NOTE | 2017-04-24 12:38 | NUR ---
PATIENTS DAUGHTER IN LAW CALLED TO CHECK ON HER FATHER IN LAW CONCERNED IF HE WAS COMING HOME TODAY
--- NOTE | 2017-04-24 12:47 | NUR ---
PATIENT REFUSSED DANIELA PALENCIA PATIENT FEELS THAT THE STOCKINGS ARE WHAT CAUSED HIS REDDNESS AND SWELLING. HE PERFERRS TO NOT WEAR THEM
--- NOTE | 2017-04-24 14:50 | NUR ---
PHYSICAL THERAPY PAtient evaluated on 4, full evaluation to follow. Continue with PT as per plan of care with fall and acute debility precautions. Qualifies for SNF but cares for daughter at home and insists on return to home. Out patient PT versus home health RN , PT and aides until activity tolerance and safety warrant out patient PT advancement. Patient is moderate complexity via chart review, tests and evaluation: [id number]. Thank you for this referral. Amena Crow,PT
[2017-04-24 16:00] VITALS: BP 126/57
--- NOTE | 2017-04-24 17:19 | NUR ---
KOKO WAS IN WITH PATIENT TALKING ABOUT DISCHARGE PLANNING. PATIENT IS NOT AGREEING TO PLACEMENT FOR REHANILATION. HE HAS A SPECIAKL NEEDS DAUGHTER THAT HE TAKES CARE OF HE CAN'T BE AWAY FROM HER FOR AN EXTENDED PEROID OF TIME. KOKO EXPLAINED TO HIM THE IMPORTANCE OF HIS GETTING TIME TO HEAL AND REST SO HE WILL BE ABLE TO TAKE CARE OF HIS DAUGHTER. KOKO EXPLAINED HER CONCERN THAT IF HE DOES NOT GO FOR THERAPY HE WILL NOT ALLOW HIMSELF TIME TO RECOVER AND BE RIGHT BACK IN THE HOSPITAL
[2017-04-24 20:00] VITALS: BP 128/58
--- NOTE | 2017-04-24 23:05 | NUR ---
PT PLACED ON NOCTURNAL PULSE OX. ROOM AIR
[2017-04-25] VITALS: BP 127/60
--- NOTE | 2017-04-25 02:30 | NUR ---
PT DOING WELL, ROOM AIR, PULSE OX ON 96%
[2017-04-25 08:00] VITALS: BP 163/73
--- NOTE | 2017-04-25 09:30 | NUR ---
AUTO BODY REPAIR TEACHER IN TO SEE PT.
--- NOTE | 2017-04-25 09:38 | NUR ---
PHYSICAL THERAPY Gwyn seen this AM 1:1 and did very well. All transfers were supervision X 1, no LOB. Gait total 210' X 1, CG X 1, and using the javier hand rail at times, with verbal cueing for gait, turn safety. Pt up in his bedside chair call light, phone, followed by act Ex to bilateral LE of marching, LAQ's, and ankle pumps X 25 reps each and having no complaints. ODALIS LORA RUBBER CUTTER AND SHAPE CARVER.
[2017-04-25 12:00] VITALS: BP 134/55
--- NOTE | 2017-04-25 14:23 | NUR ---
EXPLOSIVE TECHNICIAN TOOK PHONE MESSAGE RAGARDING HOME OXYGEN FOR PT. FAMILY IS TO CALL MOMO AT [facility] WHEN THE PT IS READY TO BE DISCHARGED. PHONE # TO CALL: [phone]
--- NOTE | 2017-04-25 15:04 | NUR ---
PT GIVEN PRN PO TYLENOL FOR COMPLAINTS OF LEFT SHOULDER PAIN. WILL MONITOR.
[2017-04-25 16:00] VITALS: BP 114/67
--- NOTE | 2017-04-25 16:00 | NUR ---
PAIN RATED 0 OUT OF 10. TYLENOL WAS EFFECTIVE FOR SHOULDER PAIN.
[2017-04-25 20:00] VITALS: BP 143/56
[2017-04-26] VITALS: BP 133/58
[2017-04-26 05:49] LABS: ALBUMIN 3.3 gm/dl (3.1-4.5); ALKALINE PHOSPHATASE 58 U/L (45-117); BUN 24 mg/dl (7-24); CHLORIDE 94 mmol/L (98-107); CREATININE 1.35 mg/dL (0.70-1.30); POTASSIUM 3.9 mmol/L (3.5-5.1); SGOT/AST 13 IU/L (3-35); SGPT/ALT 17 U/L (12-78); SODIUM 134 mmol/L (136-145); TOTAL PROTEIN 7.1 gm/dL (6.4-8.2)
[2017-04-26 06:20] LABS: BASO # 0.1 10*3/uL (0.0-0.1); BASO % 0.8 % (0.0-1.0); EOS # 0.2 10*3/uL (0.0-0.4); EOS % 3.1 % (1.0-4.0); HEMATOCRIT 28.4 % (42.0-52.0); HEMOGLOBIN 9.3 g/dl (14.0-18.0); LYMPH # 1.1 10*3/uL (1.3-4.4); LYMPH % 14.9 % (27.0-41.0); MEAN CELL VOLUME 90.7 fl (80.0-94.0); MEAN CORPUSCULAR HGB 29.7 pg (27.0-31.0); MEAN CORPUSCULAR HGB CONC 32.7 g/dl (33.0-37.0); MEAN PLATELET VOLUME 9.4 fl (9.6-12.3); MONO # 0.7 10*3/uL (0.1-1.0); MONO % 8.7 % (3.0-9.0); NEUT # 5.4 10*3/uL (2.3-7.9); NEUT % 72.1 % (47.0-73.0); PLATELET COUNT AUTOMATED 304 10*3/uL (130-400); RED BLOOD COUNT 3.13 10*6/uL (4.50-5.90); RED CELL DISTRI WIDTH 13.7 % (0-14.5); WHITE BLOOD COUNT 7.4 10*3/uL (4.8-10.8)
--- NOTE | 2017-04-26 07:11 | NUR ---
Called patients daughter in law Margie. She is interested in placing the patient and the patients daughter who is MR in an assisted living. Faxed Margie a list of assisted living facilities in the area. Patient will go home when discharged with out patient physical therapy at the [facility].
[2017-04-26 08:00] VITALS: BP 135/60
[2017-04-26] MEDS ORDERED: AMLODIPINE BESYL5 MG PO (08:42)
[2017-04-26] MEDS ORDERED: CARVEDILOL25 MG PO (08:42)
[2017-04-26] MEDS ORDERED: DOXYCYCLINE100 M3 PO (08:42)
[2017-04-26] MEDS ORDERED: FUROSEMIDE40 MG PO (08:54)
--- NOTE | 2017-04-26 09:41 | NUR ---
PHYSICAL THERAPY Gwyn seen this AM 1:1 for his physical therapy session, Pt was up in his bedside chair. All transfers were supervision X 1, no LOB. Gait with wheeled walker total 150' X 2, CG X 1, no LOB and litte verbal cueing for gait walker safety and did very well. Pt back up in his bedside chair and having no problems with act Ex to bilateral LE in sitting, Pt's nurse in at this time. ODALIS KIDD SECOND MATE
[2017-04-26 12:00] VITALS: BP 128/48
--- NOTE | 2017-04-26 14:17 | NUR ---
PATIENT SEEN 1:1 FOR 25 MINUTES OT THIS DATE. PATIENT IDENTIFIED BY NAME AND DATE OF . PATIENT SEATED IN RECLINER AND REPORTS THAT HE WAS WAITING TO RECEIVE AN XRAY OF HIS LEFT FOOT. PATIENT WILLING TO COMPLETE SEATED ACTIVITY THIS DATE. COMPLETED BUE AROM SEATED ALL PLANES 2 SETS X 15 REPS THAT INCLUDED SHOULDER FLEXION/EXT, HORIZONTAL ABD/ADD, ABD/ADD, SCAPULAR RETRACT/PROTRACTION, ELBOW FLEX/EXT, FOREARM SUPINATION/PRONATION, AND HAND FLEX/EXT WITH C/O STIFFNESS B HANDS. PATIENT REQUIRED VERBAL CUES TECHNIQUE/FORM AND REQUIRED MODERATE REST BREAKS. CONTINUE TOWARDS PLAN OF CARE. KUSH PETTIT/Pati
--- NOTE | 2017-04-26 14:24 | NUR ---
DISCHARGED IN THE CARE OF HIS SON, AFTER INSTRUCTIONS GIVEN TO PATIENT AND FAMILY.
--- NOTE | 2017-04-26 15:05 | NUR ---
PHYSICAL THERAPY CO-SIGN I approve of the Phyical Therapy notes written above. NAKUL BARBOUR PT
--- NOTE | 2017-04-29 08:28 | NUR ---
OCCUPATIONAL THERAPY CO-SIGN I approve of the Occupational Therapy notes written above. MELVIN NEUMANN OTR/Pati
== END 2017-04-26 14:24 | disposition home or self-care (01) | DRG 291 ==
LOC: ED 08:44 → EDHOLD 10:15 → 4E 10:15
PROVIDERS: Emergency Medicine; Hospitalist; Registered Nurse; ADMIT Internal Medicine
DX: I13.0 Hypertensive heart and chronic kidney disease with heart failure and stage 1 through stage 4 chronic kidney disease, or unspecified chronic kidney disease (principal); I50.33 Acute on chronic diastolic (congestive) heart failure; E11.22 Type 2 diabetes mellitus with diabetic chronic kidney disease; E11.51 Type 2 diabetes mellitus with diabetic peripheral angiopathy without gangrene; E66.01 Morbid (severe) obesity due to excess calories; L03.116 Cellulitis of left lower limb; E87.1 Hypo-osmolality and hyponatremia; Z68.42 Body mass index [BMI] 45.0-49.9, adult; I44.7 Left bundle-branch block, unspecified; N18.3 Chronic kidney disease, stage 3 (moderate); D63.1 Anemia in chronic kidney disease; E11.65 Type 2 diabetes mellitus with hyperglycemia; I48.2 Chronic atrial fibrillation; I25.10 Atherosclerotic heart disease of native coronary artery without angina pectoris; E78.2 Mixed hyperlipidemia; E55.9 Vitamin D deficiency, unspecified; Z95.5 Presence of coronary angioplasty implant and graft; Z82.49 Family history of ischemic heart disease and other diseases of the circulatory system; Z79.4 Long term (current) use of insulin; Z79.82 Long term (current) use of aspirin; Z79.84 Long term (current) use of oral hypoglycemic drugs; Z79.899 Other long term (current) drug therapy; Z83.49 Family history of other endocrine, nutritional and metabolic diseases; I48.0 Paroxysmal atrial fibrillation

== ENCOUNTER → 2017-04-22 | Outpatient (CLI) | payer MEDICARE, MEDICAID ==
[~2017-04-22] MED LIST changes: +AMLODIPINE BESY10 MG PO; +ASPIRIN CHEWABL81 MG PO; +CARVEDILOL25 MG PO; +CLARITIN10 MG PO; +COREG12.5 M1 PO; +COREG6.25 MG PO; +DOXYCYCLINE100 M3 PO; +FUROSEMIDE40 MG PO; +OMEPRAZOLE20 M2 PO; +SIMVASTATIN40 MG PO; +VITAMIN D-32000 UNI1 PO; +XARE20MG PO
[2017-04-22 09:20] LABS: CHLORIDE 102 mmol/L (98-107); POTASSIUM 4.7 mmol/L (3.5-5.1); SODIUM 136 mmol/L (136-145)
[2017-04-22 09:24] LABS: BUN 22 mg/dl (7-24); CREATININE 1.36 mg/dL (0.70-1.30)
== END | disposition home or self-care (01) ==
LOC: LAB 08:08
PROVIDERS: Internal Medicine
DX: E87.1 Hypo-osmolality and hyponatremia (principal)

== ENCOUNTER → 2017-11-04 | Outpatient (CLI) | payer MEDICARE, MEDICAID ==
[~2017-11-04] MED LIST changes: +CARVEDILOL25 MG PO; +CLARITIN10 MG PO; +DOXYCYCLINE100 M3 PO; +FUROSEMIDE40 MG PO
== END | disposition home or self-care (01) ==
LOC: US 11:18
DX: I70.8 Atherosclerosis of other arteries (principal); I73.9 Peripheral vascular disease, unspecified; E11.621 Type 2 diabetes mellitus with foot ulcer

== ENCOUNTER 2017-12-10 12:11 | Inpatient (IN) | payer MEDICARE, MEDICAID ==
[~2017-12-10] VITALS: Ht 179 cm; Wt 135.8 kg
--- NOTE | ~2017-12-10 | PR ---
[place], [place] PROGRESS NOTE [id number] UN[facility] #: [id number] ROOM: 512 DOCTOR: EVANGELISTA FLOWERS DPM BIRTHDATE: [birth year] DOS: 12/14/2017 SUBJECTIVE: The patient seen postop day 2 post-resection of partial fifth left metatarsal with incision and drainage and wound debridement. The patient is resting comfortably. OBJECTIVE: There is mild edema and erythema. The wound VAC is intact with no signs of complication. Radiographs of the left foot revealed distal half of the fifth metatarsal resected, per medical record. Wound VAC in place. No soft tissue abnormality noted. No further signs of abscess or gas within the tissue. ASSESSMENT: Post-incision and drainage with resection of partial fifth metatarsal, left foot and wound debridement. PLAN: Evaluation and management. Continue wound VAC therapy. Continue offloading. Continue antibiotics per Infectious Disease. Discussed with the patient placement in extended care facility to continue wound VAC therapy and offloading along with IV antibiotics. The patient will be seen tomorrow or Saturday for followup. EVANGELISTA FLOWERS DPM CM:RAJENDRA [id number] EVANGELISTA FLOWERS DPM 12/15/17 0146 interface
--- NOTE | ~2017-12-10 | PR ---
[place], [place] PROGRESS NOTE NAME: MIR VALIENTE UNIT #: [id number] ROOM: 512 DOCTOR: GINO MARTIN MD BIRTHDATE: [birth year] DOS: 12/17/2017 SUBJECTIVE: A 24-hour event is noted. Discussed with the nursing staff. Cardiac status appears to be stable. Heart rate is well controlled. Hemoglobin is 8.2, hematocrit 26.5. Discussed with the house staff and the nursing staff. Hemodynamically much more stable. OBJECTIVE: VITAL SIGNS: Blood pressure is 140/60, heart rate is 60. HEENT: Unremarkable. NECK: Supple, no JVD. LUNGS: Diminished air entry. HEART: Sounds are irregularly irregular. REVIEW OF SYSTEMS: Unremarkable other than as reported in the HPI. LABORATORY DATA: Sodium 136, potassium 4.5, creatinine is 1.3, hemoglobin 8, hematocrit 26.5. IMPRESSION: Diabetic foot ulcer, status post debridement, atrial fibrillation, left bundle branch block pattern, diabetes mellitus, coronary artery disease, hypertension, anemia, chronic renal insufficiency. RECOMMENDATIONS: The patient is improving. PLAN: Continue the antibiotics as per ID. Monitor the blood pressure and heart rate closely and we will follow up. GINO MARTIN MD CM:PNTRANS [id number] GINO MARTIN MD 12/17/17 0826 interface
--- NOTE | ~2017-12-10 | PR ---
[place], [place] PROGRESS NOTE NAME: MIR VALIENTE UNIT #: [id number] ROOM: 512 DOCTOR: JAQUELIN JAMES MD BIRTHDATE: [birth year] DOS: 12/16/2017 I am seeing this patient for Dr. Strauss. He has no chest pain or breathing difficulty. He had no orthopnea. He cannot walk because of ulcer on the bottom of the right foot. He has no fever or chills. He has been eating okay. PHYSICAL EXAMINATION: GENERAL: The patient is alert, oriented and afebrile. His complexion is fine. VITAL SIGNS: Pulse is 80 regular, blood pressure is fine. NECK: JVP is normal. AJR is negative. LUNGS: Fairly clear. EXTREMITIES: He has no edema in the left leg and foot. There is 3+ edema in the right leg below the knee and the foot. No erythema above the ankle. IMPRESSION: 1. There is no evidence of cardiac decompensation. 2. Edema in the right leg is from local reasons, namely infection. I have instructed the nurse to make sure his right foot is elevated significantly to ease the edema, which may improve blood flow to the skin/ulcer. JAQUELIN JAMES MD CM:PNTRANS [id number] JAQUELIN JAMES MD 12/17/17 0743 interface
--- NOTE | ~2017-12-10 | PR ---
[place], [place] PROGRESS NOTE NAME: MIR VALIENTE UNIT #: [id number] ROOM: 512 DOCTOR: VERO VELASCO BIRTHDATE: [birth year] DOS: 12/14/2017 SUBJECTIVE: The patient is a 77-year-old male who is being followed for right foot diabetic foot ulcer infection with osteomyelitis. He is status post surgical debridement a couple of days ago. Bone and wound cultures are pending. Bone culture thus far with gram-positive cocci. He is currently on vancomycin, cefepime and Flagyl. Surgeon is Dr. Plummer. He is alert and oriented, tolerating the antibiotics. Denies fevers, chills, nausea, vomiting or diarrhea. No rash or itch. He does have a little cough and clear mucus. No shortness of breath. Further review of systems is unremarkable. LABORATORY DATA: No new labs today. Cultures as reviewed above. PHYSICAL EXAMINATION: VITAL SIGNS: Show temperature 97.9, pulse 80, respirations 18, BP 126/48. GENERAL: A 77-year-old obese male, in no acute distress. HEAD, EYES, EARS, NOSE AND THROAT: Normocephalic. No thrush. LUNGS: Clear to auscultation bilaterally. Respirations even and unlabored. HEART: Regular rhythm. No murmur appreciated. ABDOMEN: Soft, nontender, positive bowel sounds. EXTREMITIES: Trace edema in lower extremities. Right foot fifth metatarsal, very little surrounding erythema. He has PICC in the left upper extremity. Dressing dry and intact. No signs of phlebitis. SKIN: Otherwise, warm, dry, free of rashes. ASSESSMENT: Right foot diabetic foot ulcer infection with osteomyelitis, status post surgical debridement. PLAN: Pathology and cultures are pending. Continue vancomycin, cefepime and Flagyl pending culture results. Case discussed with Dr. Nascimento. SEPTEMBER ROD PHAM [place], [place] PROGRESS NOTE NAME: MIR VALIENTE UNIT #: [id number] ROOM: 512 DOCTOR: VERO VELASCOSEPTEMBER BIRTHDATE: [birth year] Ansley Nascimento MD CM:RAJENDRA 11 16 VERO NUCLEAR WORKER TECHNICIAN 02/10/18 1002 interface
--- NOTE | ~2017-12-10 | PR ---
[place], [place] PROGRESS NOTE [id number] UNIT #: [id number] ROOM: 512 DOCTOR: JAQUELIN JAMES MD BIRTHDATE: [birth year] DOS: 12/14/2017 I am seeing this patient on behalf of Dr. Strauss. SUBJECTIVE: This patient was recently diagnosed with atrial fibrillation with placed on anticoagulation. He had also the right foot that needed debridement and he had the treatment done a few days ago. He has some burning sensation in the foot. He has not had any palpitations or chest pain. No breathing difficulty when he is in bed. When he walks, he gets somewhat short of breath, but he is very obese as well. PHYSICAL EXAMINATION: GENERAL: This is a patient who looks well, alert, oriented, very obese. VITAL SIGNS: Temperature is normal at 98.0 degrees Fahrenheit, pulse is 72 irregular, blood pressure 106/63. NECK: JVP is normal. LUNGS: Clear. EXTREMITIES: No edema in the lower extremities. Monitor shows atrial fibrillation with heart rate in the 70s. IMPRESSION: This patient has atrial fibrillation with controlled ventricular rate. He is anticoagulated and current cardiac medications are appropriate. No new recommendations. JAQUELIN JAMES MD CM:PNTRANS [id number] JAQUELIN JAMES MD 12/15/17 0031 interface
--- NOTE | ~2017-12-10 | PR ---
[place], [place] PROGRESS NOTE NAME: MIR VALIENTE UNIT #: [id number] ROOM: 512 DOCTOR: MARRY SUN,KILEY BIRTHDATE: [birth year] DOS: 02/10/2018 This is an addendum to the progress note done for Infectious Disease on 12/14/2017. I agree with the assessment plan made by the nurse practitioner, Paula Cohn. I reviewed the labs and imaging and made the necessary changes. Ansley Tuttle MD CM:PNTRANS [phone] KILEY TUTTLE MD 02/11/18 0116 interface
--- NOTE | ~2017-12-10 | PR ---
[place], [place] PROGRESS NOTE NAME: [id number] UNIT #: [id number] ROOM: 512 DOCTOR: MARIE FLORES DPM BIRTHDATE: [birth year] DOS: 12/13/2017 This patient is seen one day status post resection of distal fifth metatarsal. He has no complaints of pain in his foot. Denies fever, chills, nausea, vomiting or sweats. OBJECTIVE: Dressing is removed. There is some retention sutures noted at the lateral right fifth metatarsal. There is still an open wound noted in the center with no purulent drainage or malodor. There is minimal erythema less than 1 cm around the wound. There is no fluctuance or signs of abscess, eschar noted distal right first toe and then dry superficial ulcer noted, plantar first metatarsal head, left foot with no infection. ASSESSMENT: Status post surgery, right foot; osteomyelitis; diabetic ulcers. PLAN: Remove the bandage evaluated the wound. The patient is having wound VAC applied this morning. Continue with wound VAC as ordered per protocol. I will follow up with him tomorrow for reevaluation. MARIE FLORES DPM CM:PNDAMION [id number] MARIE FLORES DPM 12/14/17 0702 interface
--- NOTE | ~2017-12-10 | PR ---
[place], [place] PROGRESS NOTE NAME: MIR VALIENTE [facility] #: [id number] UNIT #: [id number] ROOM: 512 DOCTOR: EVANGELISTA FLOWERS DPM BIRTHDATE: [birth year] DOS: 12/17/2017 SUBJECTIVE: The patient was seen for followup partial fifth metatarsal resection and wounds of the right hallux and plantar left foot. OBJECTIVE: After removal of the wound VAC, the surgical site is granulating well. No signs of abscess, no erythema or edema, much improved postoperatively. The ulceration distal right hallux with eschar still full thickness. No signs of infection. There is a pre-ulcerative lesion to the plantar first left MPJ but no acute abscess. ASSESSMENT: Post-resection of bone, fifth right metatarsal diabetic ulceration, distal right hallux and plantar first left MPJ. PLAN: Continue with wound VAC therapy. The patient is being discharged today to [facility]. Continue IV antibiotics per Infectious Disease. Bactroban and dressings to the distal right hallux and plantar first left MPJ ulcerative sites. We will follow with the patient on an outpatient basis at the [facility]. EVANGELISTA FLOWERS DPM CM:RAJENDRA [id number] [id number] EVANGELISTA FLOWERS DPM 12/18/17 1047 interface
--- NOTE | ~2017-12-10 | CON ---
[place], [place] REPORT OF CONSULTATION NAME: MIR VALIENTE UNIT #: [id number] ROOM: 512 DOCTOR: VERO VELASCO,SEPTEMBER BIRTHDATE: [birth year] DOS: 12/11/2017 HISTORY OF PRESENT ILLNESS: The patient is a 77-year-old male who was admitted on the and he was sent in by his commercial loan reviewer, Dr. Valdivia who feels that the patient probably has osteomyelitis of the right foot. He is to go for surgical debridement tomorrow as well as biopsy and cultures. The antibiotics that he was on as an outpatient he did have Bactrim, which he states he completed about 5 days ago at the direction of Dr. Valdivia. He had an x-ray of the right foot showing fracture of the head of the fifth metatarsal without evidence of healing and that it may be a pathologic fracture from underlying osteomyelitis. He has had no wound cultures obtained as of yet. Blood cultures are pending. The patient had no fevers or chills at home. He does have some pain in the right foot, currently receiving vancomycin and Zosyn, pending operative cultures. He did have a revascularization procedure done by Dr. Dc in [place] 3 weeks ago. PAST MEDICAL HISTORY: As above as well as anemia, AFib, coronary artery disease, CHF, hyperlipidemia, hypertension, left bundle-branch block, morbid obesity, diabetes, vitamin D deficiency, coronary artery stent, spinal cyst resection of the area of the tail bone. SOCIAL HISTORY: Nonsmoker, nondrinker, no illicit drug use. FAMILY MEDICAL HISTORY: Father with diabetes, at the age of 57 with an AK. Mother with CHF as well as alcoholic cirrhosis, at the age of 58. ALLERGIES: No known drug allergies. CURRENT MEDICATIONS: Toprol, lisinopril, vitamin D, aspirin, Protonix, Eliquis, Bactroban, Humalog, vancomycin, Zosyn, Dulcolax and Tylenol p.r.n. LABORATORY DATA: WBC is 8.3, platelets 315. BUN 18, creatinine 1.45. LFTs within normal limits. Blood cultures pending. REVIEW OF SYSTEMS: As above in history of present illness as well as no nausea or vomiting, no diarrhea. No rash or itch. No cough, shortness of breath. No headache or dizziness. No chest pain or palpitations. Mild lower extremity edema. Again, some pain in the right foot. No fevers or chills. Further review of systems is unremarkable x 10. PHYSICAL EXAMINATION: VITAL SIGNS: Temperature 98.1, pulse 80, respirations 20, BP 143/89. GENERAL: A 77-year-old obese male in no acute distress. HEENT: Normocephalic, no thrush. Edentulous. NECK: Supple. LUNGS: Clear to auscultation bilaterally. Respirations even and unlabored. HEART: Irregular rhythm with murmur noted. ABDOMEN: Soft, obese, and nontender. Positive bowel sounds. EXTREMITIES: Mild lower extremity edema. SKIN: Right foot with distal great toe with small eschar as well as right [place], [place] REPORT OF CONSULTATION NAME: MIR VALIENTE UNIT #: [id number] ROOM: [facility] DOCTOR: VERO VELASCOSEPTEMBER BIRTHDATE: [birth year] lateral foot with a large soft eschar with surrounding erythema, no odor or active discharge. Skin is otherwise warm and dry, free of rashes. ASSESSMENT: Right diabetic foot infection with surrounding cellulitis, probable osteomyelitis, according to x-ray. PLAN: Plan is to go for surgical debridement tomorrow as well as culture and biopsy. We will follow up on the cultures and pathology and adjust antibiotics accordingly. Continue the vancomycin and Zosyn. Watch the creatinine. JANNIE PHAM CNP Ansley Nascimento MD CM:CONSTR:REPORT OF CONSULTATION 1818 12/12/17 1314 interface
--- NOTE | ~2017-12-10 | CON ---
[place], [place] REPORT OF CONSULTATION NAME: MIR VALIENTE UNIT #: [id number] ROOM: 512 DOCTOR: GINO MARTIN MD BIRTHDATE: [birth year] DOS: 12/11/2017 REASON FOR CONSULTATION: Atrial fibrillation, which is persistent and chronic; history of severe peripheral vascular disease. HISTORY OF PRESENT ILLNESS: A 77-year-old gentleman came to the Emergency Room with a diabetic foot wound. The patient has history of severe peripheral vascular disease, bilateral interventions by Dr. Dc about 3 weeks ago. The patient is in atrial fibrillation with frequent PVCs. He denies any chest discomfort, shortness of breath, or palpitations. As mentioned, had recent peripheral intervention done. PAST MEDICAL HISTORY: Atrial fibrillation, coronary artery disease, history of diabetic foot ulcer, hyperlipidemia, left bundle branch block, and morbid obesity. SURGICAL HISTORY: Coronary artery stent placement, history of peripheral arterial disease and intervention, and diabetic foot ulcer. HOME MEDICATIONS: Insulin, metformin, omeprazole, apixaban, and aspirin. ALLERGIES: None. FAMILY HISTORY: Positive for coronary artery disease. REVIEW OF SYSTEMS: CONSTITUTIONAL: No fever and no chills. HEENT: No visual disturbances or hearing problems. CARDIOVASCULAR: Denies any chest discomfort. RESPIRATORY: Denies any shortness of breath. ABDOMEN: Denies abdominal pain. EXTREMITIES: He complains of foot pain. PHYSICAL EXAMINATION: VITAL SIGNS: Blood pressure is 160/70. HEENT: Unremarkable. NECK: Supple. No JVD. LUNGS: Diminished breath sounds. HEART: Sounds are regular. NEUROLOGIC: Appears to be stable. EXTREMITIES: Both positive erythema and edema. No clubbing. Right lower extremity is noted with edema and erythema noted in the foot. Bilateral wounds are noted. LABORATORY DATA: Sodium 136, potassium 5, and creatinine is 1.4. Troponins are all negative. INR is normal. The patient is already on Eliquis. Hemoglobin is 8.6 and hematocrit is 27.7. DIAGNOSTIC DATA: EKG shows atrial fibrillation with left bundle branch block with isolated PVCs. [place], [place] REPORT OF CONSULTATION NAME: MIR VALIENTE UNIT #: [id number] ROOM: 512 DOCTOR: GINO MARTIN MD BIRTHDATE: [birth year] IMPRESSION: The patient with diabetic foot ulcer, persistent atrial fibrillation, questionable osteomyelitis, hypertension, diabetes, chronic renal insufficiency, and frequent premature ventricular contractions. RECOMMENDATIONS: We will review the echocardiogram if possible use a very small dose of selective beta-blockers like metoprolol .11/15 b.i.d. Unfortunately not able to start the MARY LOU inhibitors because of hyperkalemia and chronic renal insufficiency. Monitor the blood pressure very closely. Monitor the heart rhythm closely. The patient is at moderate risk for any kind of surgery. We will review the echocardiogram and I will follow up with you. Thank you for this interesting consultation. GINO MARTIN MD CM:CONSTR:REPORT OF CONSULTATION 0725 12/11/17 0744 interface
--- NOTE | ~2017-12-10 | O ---
[place], [place] OPERATIVE NOTE NAME: MIR VALIENTE UNIT #: [id number] ROOM: [facility] DOCTOR: EVANGELISTA FLOWERS DPM BIRTHDATE: [birth year] DOS: 12/12/2017 PREOPERATIVE DIAGNOSES: Diabetic ulceration with abscess, fifth, right MPJ with probable osteomyelitis, fifth right metatarsal head. POSTOPERATIVE DIAGNOSES: Diabetic ulceration with abscess, fifth, right MPJ with probable osteomyelitis, fifth right metatarsal head. Pending pathology. PROCEDURE PERFORMED: Partial resection of fifth right metatarsal with debridement of necrotic tissue to the level of bone at the fifth MPJ and lateral fifth right metatarsal. SURGEON: Evangelista Flowers DPM STRE[employer] CLEANING EQUIPMENT OPERATOR: None. ESTIMATED BLOOD LOSS: 10 mL. DRAIN: None. PACKIN inch plain packing. ANESTHESIA: MAC. PROCEDURE DETAILS: The patient was brought to the operating room and placed in the operating table in supine position. Anesthesia was administered per Anesthesia Department. Local infiltration of 10 mL of 0.5% Marcaine plain was utilized for local block. The right foot was prepped and draped in usual aseptic manner. No tourniquet was utilized during the procedure. Attention was directed to the plantar lateral aspect of the fifth MJP, where a large ulceration with necrotic tissue and drainage noted. A 15 blade was utilized to perform a linear incision at the lateral plantar aspect of the fifth metatarsal measuring approximately 7 cm in length. The incision was deepened to the level of the fifth right metatarsal. The fifth right metatarsal head was noted to have pathological fracture with necrotic changes. A sagittal saw was utilized to resect the distal half of the fifth right metatarsal along with the fifth right metatarsal head. All necrotic nonviable tissue was excisionally excised with a 15 blade at the plantar lateral aspect of the fifth metatarsal and fifth MPJ. Cultures were taken intraoperatively including tissue and bone separately to include gram-stain aerobic, anaerobic, acid-fast and fungal cultures. The bone was send to pathology for definitive diagnosis of osteomyelitis. After debridement of all necrotic nonviable tissue, copious irrigation was performed with sterile saline. A 2-0 nylon suture was utilized for retention sutures. The wound was not able to fully close due to the ulcerative defect. The remaining wound was packed with 1-inch plain packing. The sterile compressive dressing consisting of wet-to-dry dressing with 4 x 4s, Kerlix, ABD and MARY LOU bandage was applied. The patient tolerated the procedures and anesthesia well and left the OR with vital signs stable, neurovascular status intact. The patient will be discharged back to the nursing unit to resume previous orders, orders for nonweightbearing, bedside commode, and antibiotics per infectious [place], [place] OPERATIVE NOTE NAME: MIR VALIENTE UNIT #: [id number] ROOM: [facility] DOCTOR: EVANGELISTA FLOWERS DPM BIRTHDATE: [birth year] disease. The patient will be seen tomorrow for followup. We will order wound VAC to be applied tomorrow at 125 mmHg, continuously change every 3 days. Discussed the case postoperatively with the patient and his family. I recommend the patient upon discharge, go to extended care facility, where he may need further surgical revision in the future if the wound VAC does not granulate and heal the large defect to the lateral foot. They understood this and discussed the importance of compliance and offloading. EVANGELISTA FLOWERS DPM CM:OPRECORD:OPERATIVE NOTE 1310 1548 EVANGELISTA FLOWERS DPM 12/12/17 1547 interface
--- NOTE | ~2017-12-10 | PR ---
[place], [place] PROGRESS NOTE NAME: MIR VALIENTE UNIT #: [id number] ROOM: 512 DOCTOR: VERO VELASCO,SEPTEMBER BIRTHDATE: [birth year] DOS: SUBJECTIVE: The patient is a 77-year-old male who is being followed for right foot osteomyelitis, status post debridement of the right foot with resection of a portion of the fifth metatarsal, is currently on cefepime, vancomycin and Flagyl. Pathology is pending. Operative cultures are back and showing Staph lugdunensis which is sensitive to oxacillin. These cultures are from bone. The patient is alert and oriented, feels well, tolerating the antibiotics. Denies fever, chills, nausea, vomiting or diarrhea. No rash or itch. No cough or shortness of breath. Does have some constipation as well as continued right lower extremity edema. He has had an ultrasound that ruled out a DVT. VITAL SIGNS: Temperature 98.2, pulse 68, respirations 20, BP 146/60. LABORATORY DATA: No new labs today other than not finalized cultures. PHYSICAL EXAMINATION: GENERAL: A 77-year-old male in no acute distress, nontoxic in appearance. HEENT: Normocephalic, no thrush. LUNGS: Clear to auscultation bilaterally. Respirations even and unlabored. HEART: Regular rhythm. No murmur appreciated. ABDOMEN: Soft, nontender, obese. EXTREMITIES: Right lower extremity +3 edema. Wound VAC intact on the right lateral foot. SKIN: Warm, dry, free of rashes. PICC in the left upper extremity. Dressing dry and intact. No signs of phlebitis. ASSESSMENT: Right foot diabetic foot infection with osteomyelitis, status post debridement and resection of the right fifth metatarsal. Operative cultures with Staph lugdunensis but there was concern for anaerobic involvement. PLAN: We will narrow the cefepime, vancomycin and Flagyl down to Unasyn. The patient is being set up for discharge to [facility]. He will need to continue antibiotics at least until seen by Infectious Disease for a minimum of 2 weeks up to 6 weeks depending on his clinical course. ADDENDUM Zosyn will be used as reviewing the cultures from October from the patient's right foot, he did grow Serratia as well, which was resistant to ampicillin and sulbactam. SEPTEMBER ROD PHAM [place], [place] PROGRESS NOTE NAME: MIR VALIENTE UNIT #: [id number] ROOM: [facility] DOCTOR: VERO VELASCOSEPTEMBER BIRTHDATE: [birth year] Ansley Nascimento MD CM:PNDAMION 1512 1555 SEPTEMBER VERO VELASCO 12/15/17 1946 interface
--- NOTE | ~2017-12-10 | PR ---
[place], [place] PROGRESS NOTE NAME: MIR VALIENTE UNIT #: [id number] ROOM: 512 DOCTOR: MARIE FLORES DPM BIRTHDATE: [birth year] DOS: 12/16/2017 SUBJECTIVE: The patient is seen postop day #4 for partial fifth metatarsal resection, right foot. The patient states he is doing well. Really has no complaints. OBJECTIVE: Wound VAC is in place. There is no surrounding edema or erythema. Mild drainage in the canister at this time. He does have a small open area plantar first metatarsal head left foot with no signs of infection. Evidence is minimal blistering. ASSESSMENT: Status post surgery, right foot; diabetic ulcer, left foot. PLAN: Continue with VAC therapy, continue with the current treatment plan. Antibiotics per Infectious Disease. Await bone path and cultures. Continue with wound care. Follow up tomorrow with Dr. Valdivia. MARIE FLORES DPM CM:PNTRANS 1214 0915 MARIE FLORES DPM 12/17/17 0914 interface
[2017-12-10 12:12] VITALS: BP 138/48
[2017-12-10] MEDS ORDERED: ELIQUIS2.5 M1 PO (12:28)
[2017-12-10 13:22] LABS: BASO # 0.1 10*3/uL (0.0-0.1); BASO % 0.8 % (0.0-1.0); EOS # 0.1 10*3/uL (0.0-0.4); EOS % 1.7 % (1.0-4.0); HEMATOCRIT 27.7 % (42.0-52.0); HEMOGLOBIN 8.6 g/dl (14.0-18.0); LYMPH # 1.1 10*3/uL (1.3-4.4); LYMPH % 13.3 % (27.0-41.0); MEAN CELL VOLUME 89.4 fl (80.0-94.0); MEAN CORPUSCULAR HGB 27.7 pg (27.0-31.0); MEAN PLATELET VOLUME 8.5 fl (9.6-12.3); MONO # 0.6 10*3/uL (0.1-1.0); MONO % 6.9 % (3.0-9.0); NEUT # 6.3 10*3/uL (2.3-7.9); NEUT % 76.8 % (47.0-73.0); PLATELET COUNT AUTOMATED 302 10*3/uL (130-400); RED CELL DISTRI WIDTH 14.9 % (0-14.5); WHITE BLOOD COUNT 8.3 10*3/uL (4.8-10.8)
[2017-12-10 13:31] LABS: INTERNATIONAL NORM RATIO 1.1 (2.0-3.5)
[2017-12-10 13:36] LABS: ALBUMIN 3.1 gm/dl (3.1-4.5); ALKALINE PHOSPHATASE 71 U/L (45-117); BUN 17 mg/dl (7-24); CHLORIDE 103 mmol/L (98-107); CREATININE 1.48 mg/dL (0.70-1.30); SGOT/AST 6 IU/L (3-35); SGPT/ALT 13 U/L (12-78); SODIUM 136 mmol/L (136-145); TOTAL PROTEIN 7.3 gm/dL (6.4-8.2)
[2017-12-10 13:39] LABS: TROPONIN I < 0.015 ng/ml (<0.045)
[2017-12-10] MEDS ORDERED: NOVOLOG 70/30 M10 ML SC (14:02)
[2017-12-10] MEDS ORDERED: JANUVIA100 MG PO (14:03)
[2017-12-10] MEDS ORDERED: LASIX40 MG PO (14:03)
[2017-12-10] MEDS ORDERED: INVOKANA100 M1 PO (14:03)
[2017-12-10] MEDS ORDERED: LOSARTAN POTAS100 M1 PO (14:04)
[2017-12-10] MEDS ORDERED: PLAVIX75 M1 PO (14:07)
[2017-12-10 14:12] VITALS: BP 164/71
[2017-12-10 16:00] VITALS: BP 163/79
[2017-12-10 20:00] VITALS: BP 156/55
[2017-12-11] VITALS: BP 156/80
[2017-12-11 07:20] LABS: BASO # 0.1 10*3/uL (0.0-0.1); EOS # 0.2 10*3/uL (0.0-0.4); EOS % 1.8 % (1.0-4.0); HEMATOCRIT 28.2 % (42.0-52.0); HEMOGLOBIN 8.8 g/dl (14.0-18.0); LYMPH # 0.9 10*3/uL (1.3-4.4); LYMPH % 11.4 % (27.0-41.0); MEAN CELL VOLUME 89.2 fl (80.0-94.0); MEAN CORPUSCULAR HGB 27.8 pg (27.0-31.0); MEAN CORPUSCULAR HGB CONC 31.2 g/dl (33.0-37.0); MEAN PLATELET VOLUME 8.8 fl (9.6-12.3); MONO # 0.6 10*3/uL (0.1-1.0); MONO % 7.3 % (3.0-9.0); NEUT # 6.4 10*3/uL (2.3-7.9); PLATELET COUNT AUTOMATED 315 10*3/uL (130-400); RED BLOOD COUNT 3.16 10*6/uL (4.50-5.90); RED CELL DISTRI WIDTH 14.6 % (0-14.5); WHITE BLOOD COUNT 8.3 10*3/uL (4.8-10.8)
[2017-12-11 07:30] LABS: CREATININE 1.45 mg/dL (0.70-1.30); POTASSIUM 5.2 mmol/L (3.5-5.1)
[2017-12-11 07:38] LABS: FREE T4 1.13 ng/dl (0.76-1.46); PHOSPHOROUS 3.5 mg/dL (2.5-4.9); THYROID STIM HORMONE (HS) 2.06 uIU/ml (0.358-4.75); TOTAL PROTEIN 7.1 gm/dL (6.4-8.2)
[2017-12-11 08:00] VITALS: BP 153/69
[2017-12-11 08:35] LABS: VITAMIN D, 25-HYDROXY 28.3 ng/mL (30-100)
[2017-12-11 12:00] VITALS: BP 130/47
[2017-12-11 16:00] VITALS: BP 143/89
[2017-12-11 20:00] VITALS: BP 145/66
[2017-12-12] VITALS (8 sets, daily range): BP systolic 82–131; BP diastolic 33–77
[2017-12-12 07:45] LABS: BASO # 0.1 10*3/uL (0.0-0.1); BASO % 0.9 % (0.0-1.0); EOS # 0.3 10*3/uL (0.0-0.4); HEMATOCRIT 28.7 % (42.0-52.0); HEMOGLOBIN 8.8 g/dl (14.0-18.0); LYMPH # 1.2 10*3/uL (1.3-4.4); MEAN CELL VOLUME 90.3 fl (80.0-94.0); MEAN CORPUSCULAR HGB 27.7 pg (27.0-31.0); MEAN CORPUSCULAR HGB CONC 30.7 g/dl (33.0-37.0); MEAN PLATELET VOLUME 9.2 fl (9.6-12.3); MONO # 0.7 10*3/uL (0.1-1.0); MONO % 7.8 % (3.0-9.0); NEUT # 6.9 10*3/uL (2.3-7.9); NEUT % 74.9 % (47.0-73.0); PLATELET COUNT AUTOMATED 331 10*3/uL (130-400); RED BLOOD COUNT 3.18 10*6/uL (4.50-5.90); RED CELL DISTRI WIDTH 14.7 % (0-14.5); WHITE BLOOD COUNT 9.1 10*3/uL (4.8-10.8)
[2017-12-12 08:00] LABS: CREATININE 1.75 mg/dL (0.70-1.30); POTASSIUM 4.6 mmol/L (3.5-5.1)
[2017-12-13] VITALS: BP 154/47
[2017-12-13 06:59] LABS: BASO # 0.1 10*3/uL (0.0-0.1); BASO % 0.9 % (0.0-1.0); EOS # 0.2 10*3/uL (0.0-0.4); EOS % 2.2 % (1.0-4.0); HEMATOCRIT 26.1 % (42.0-52.0); HEMOGLOBIN 8.1 g/dl (14.0-18.0); LYMPH # 1.1 10*3/uL (1.3-4.4); LYMPH % 13.1 % (27.0-41.0); MEAN CORPUSCULAR HGB 27.9 pg (27.0-31.0); MEAN PLATELET VOLUME 8.9 fl (9.6-12.3); MONO # 0.6 10*3/uL (0.1-1.0); MONO % 7.3 % (3.0-9.0); NEUT # 6.6 10*3/uL (2.3-7.9); NEUT % 75.9 % (47.0-73.0); PLATELET COUNT AUTOMATED 295 10*3/uL (130-400); RED CELL DISTRI WIDTH 14.7 % (0-14.5); WHITE BLOOD COUNT 8.7 10*3/uL (4.8-10.8)
[2017-12-13 07:41] LABS: POTASSIUM 4.4 mmol/L (3.5-5.1)
[2017-12-13 07:42] LABS: CREATININE 1.48 mg/dL (0.70-1.30); PHOSPHOROUS 3.5 mg/dL (2.5-4.9)
[2017-12-13 08:00] VITALS: BP 128/60
[2017-12-13 12:00] VITALS: BP 158/68
[2017-12-13 16:00] VITALS: BP 132/58
[2017-12-13 16:09] LABS: ACID FAST SPEC PROCESSING Tissue Grinding (.)
[2017-12-13 16:09] LABS: ACID FAST SPEC PROCESSING Tissue Grinding (.)
[2017-12-13 20:00] VITALS: BP 136/37
[2017-12-14] VITALS: BP 106/63
[2017-12-14 08:00] VITALS: BP 130/72
[2017-12-14 12:00] VITALS: BP 138/54
[2017-12-14 16:00] VITALS: BP 126/48; BP 137/69
[2017-12-14 20:00] VITALS: BP 128/52; BP 155/54
[2017-12-15] VITALS: BP 121/52
[2017-12-15 08:00] VITALS: BP 124/72; BP 133/96
[2017-12-15 12:00] VITALS: BP 146/60
[2017-12-15 16:00] VITALS: BP 137/69
[2017-12-15 20:00] VITALS: BP 155/54
[2017-12-16] VITALS: BP 132/67
[2017-12-16 07:04] LABS: BASO # 0.1 10*3/uL (0.0-0.1); BASO % 0.7 % (0.0-1.0); EOS # 0.2 10*3/uL (0.0-0.4); HEMATOCRIT 26.5 % (42.0-52.0); HEMOGLOBIN 8.2 g/dl (14.0-18.0); LYMPH # 1.2 10*3/uL (1.3-4.4); LYMPH % 14.7 % (27.0-41.0); MEAN CELL VOLUME 90.8 fl (80.0-94.0); MEAN CORPUSCULAR HGB 28.1 pg (27.0-31.0); MEAN CORPUSCULAR HGB CONC 30.9 g/dl (33.0-37.0); MONO # 0.6 10*3/uL (0.1-1.0); MONO % 7.3 % (3.0-9.0); NEUT % 74.9 % (47.0-73.0); PLATELET COUNT AUTOMATED 260 10*3/uL (130-400); RED BLOOD COUNT 2.92 10*6/uL (4.50-5.90); RED CELL DISTRI WIDTH 14.9 % (0-14.5)
[2017-12-16 07:15] LABS: BUN 21 mg/dl (7-24); CHLORIDE 105 mmol/L (98-107); CREATININE 1.31 mg/dL (0.70-1.30); POTASSIUM 4.5 mmol/L (3.5-5.1); SODIUM 136 mmol/L (136-145)
[2017-12-16 08:00] VITALS: BP 137/57
[2017-12-16 12:00] VITALS: BP 146/51
[2017-12-16 16:00] VITALS: BP 173/73
[2017-12-16 20:00] VITALS: BP 171/71
[2017-12-16 22:40] VITALS: BP 150/86
[2017-12-17] VITALS: BP 136/99
[2017-12-17 07:30] LABS: BASO # 0.1 10*3/uL (0.0-0.1); BASO % 1.2 % (0.0-1.0); EOS # 0.2 10*3/uL (0.0-0.4); EOS % 2.8 % (1.0-4.0); HEMATOCRIT 27.1 % (42.0-52.0); HEMOGLOBIN 8.3 g/dl (14.0-18.0); LYMPH # 1.1 10*3/uL (1.3-4.4); LYMPH % 14.4 % (27.0-41.0); MEAN CELL VOLUME 90.3 fl (80.0-94.0); MEAN CORPUSCULAR HGB 27.7 pg (27.0-31.0); MEAN CORPUSCULAR HGB CONC 30.6 g/dl (33.0-37.0); MEAN PLATELET VOLUME 9.5 fl (9.6-12.3); MONO # 0.6 10*3/uL (0.1-1.0); MONO % 8.5 % (3.0-9.0); NEUT # 5.3 10*3/uL (2.3-7.9); NEUT % 72.8 % (47.0-73.0); PLATELET COUNT AUTOMATED 283 10*3/uL (130-400); RED CELL DISTRI WIDTH 14.9 % (0-14.5); WHITE BLOOD COUNT 7.3 10*3/uL (4.8-10.8)
[2017-12-17 07:48] LABS: BUN 20 mg/dl (7-24); CHLORIDE 106 mmol/L (98-107); CREATININE 1.36 mg/dL (0.70-1.30); POTASSIUM 4.5 mmol/L (3.5-5.1); SODIUM 138 mmol/L (136-145)
[2017-12-17 08:00] VITALS: BP 149/72
[2017-12-17 12:00] VITALS: BP 156/75
[2017-12-17 16:00] VITALS: BP 132/55
[2017-12-17] MEDS ORDERED: METOPROLOL SUCC25 M2 PO (17:03)
[2017-12-17] MEDS ORDERED: Bactroban Oint22 GM T (17:03)
[2017-12-17] MEDS ORDERED: LISINOPRIL5 MG PO (17:03)
[2017-12-17] MEDS ORDERED: Humalog SQ (17:03)
[2017-12-17] MEDS ORDERED: METRONIDAZOLE500 M1 PO (17:03)
[2017-12-17] MEDS ORDERED: CEFAZOLIN2 GM/20 ML IV (17:03)
[2018-01-17] MEDS ORDERED: GOOD NEIGH100 MG/52 PO (19:38)
[2018-01-17] MEDS ORDERED: LEVOFLOXACIN500 MG PO (19:39)
[2018-01-17] MEDS ORDERED: SANTYL30 GM T (19:43)
[2018-01-23 10:07] LABS: ACID FAST CULTURE Negative (.)
[2018-01-23 10:07] LABS: ACID FAST CULTURE Negative (.)
[2018-01-23] MEDS ORDERED: LASIX40 MG PO (14:58)
[2018-02-03] MEDS ORDERED: ARGINAID POWDE1 EACH PO (16:34)
[2018-02-03] MEDS ORDERED: Bactroban Oint22 GM T (16:36)
[2018-02-06] MEDS ORDERED: NYSTOP60 GM T (13:34)
[2018-02-06] MEDS ORDERED: HYDROCODONE-AC1 EAC1 PO (13:36)
== END 2017-12-17 20:45 | disposition other institution (70) | DRG 629 ==
LOC: ED 12:11 → EDHOLD 13:05 → 5E 13:05
PROVIDERS: Emergency Medicine; Internal Medicine; Internal Medicine Hospice and Palliative Medicine; Podiatrist; Registered Nurse
PROC: 0QBN0ZZ Excision of Right Metatarsal, Open Approach (ICD-10-PCS; principal; 2017-12-12)
PROC: 05HF33Z Insertion of Infusion Device into Left Cephalic Vein, Percutaneous Approach (ICD-10-PCS; 2017-12-13)
DX: E11.69 Type 2 diabetes mellitus with other specified complication (principal); E44.0 Moderate protein-calorie malnutrition; M86.8X7 Other osteomyelitis, ankle and foot; N17.0 Acute kidney failure with tubular necrosis; E11.22 Type 2 diabetes mellitus with diabetic chronic kidney disease; E11.621 Type 2 diabetes mellitus with foot ulcer; I48.0 Paroxysmal atrial fibrillation; E11.51 Type 2 diabetes mellitus with diabetic peripheral angiopathy without gangrene; E11.65 Type 2 diabetes mellitus with hyperglycemia; I48.1 Persistent atrial fibrillation; L03.115 Cellulitis of right lower limb; I13.0 Hypertensive heart and chronic kidney disease with heart failure and stage 1 through stage 4 chronic kidney disease, or unspecified chronic kidney disease; L02.611 Cutaneous abscess of right foot; Z68.41 Body mass index [BMI] 40.0-44.9, adult; L97.929 Non-pressure chronic ulcer of unspecified part of left lower leg with unspecified severity; L97.514 Non-pressure chronic ulcer of other part of right foot with necrosis of bone; D64.9 Anemia, unspecified; E87.5 Hyperkalemia; E11.59 Type 2 diabetes mellitus with other circulatory complications; E66.01 Morbid (severe) obesity due to excess calories; I50.9 Heart failure, unspecified; E78.2 Mixed hyperlipidemia; I25.10 Atherosclerotic heart disease of native coronary artery without angina pectoris; Z96.652 Presence of left artificial knee joint; I44.7 Left bundle-branch block, unspecified; E55.9 Vitamin D deficiency, unspecified; N18.3 Chronic kidney disease, stage 3 (moderate); I08.1 Rheumatic disorders of both mitral and tricuspid valves; Z79.82 Long term (current) use of aspirin; Z79.4 Long term (current) use of insulin; Z79.84 Long term (current) use of oral hypoglycemic drugs; Z79.899 Other long term (current) drug therapy; Z89.422 Acquired absence of other left toe(s); Z95.818 Presence of other cardiac implants and grafts; Z82.49 Family history of ischemic heart disease and other diseases of the circulatory system; Z83.79 Family history of other diseases of the digestive system

== ENCOUNTER 2017-12-30 16:49 | Inpatient (IN) | payer MEDICARE, MEDICAID ==
[~2017-12-30] VITALS: Ht 180.3 cm; Wt 143.9 kg
--- NOTE | ~2017-12-30 | PR ---
[place], [place] PROGRESS NOTE NAME: MIR VALIENTE UNIT #: [id number] ROOM: 501 DOCTOR: JAQUELIN JAMES MD BIRTHDATE: [birth year] DOS: 01/03/2018 SUBJECTIVE: He is still short of breath, feels no different than yesterday. Swelling in the legs is still substantial with redness. He is eating fine and he is not drinking too much fluid. PHYSICAL EXAMINATION: VITAL SIGNS: Pulse is 88, blood pressure 102/52. NECK: JVP is still high. LUNGS: Breath sounds are mildly diminished with very few adventitious sounds. EXTREMITIES: Edema in the lower extremities remains severe with erythema. SKIN: Rather shiny because it will stretched out from edema. Fluid balance is -3.3 liters for the last 24 hours. IMPRESSION: This patient has severe heart failure, probably diastolic and has diuresed well with the large dose of furosemide which should be continued for the next few days. Renal function has improved and I think this would get better still with further diuresis. I saw this patient for Dr. Strauss. JAQUELIN JAMES MD CM:PNTRANS [id number] JAQUELIN JAMES MD 01/03/18 6894 interface
--- NOTE | ~2017-12-30 | CON ---
[place], [place] REPORT OF CONSULTATION NAME: MIR VALIENTE UNIT #: [id number] ROOM: 501 DOCTOR: EVANGELISTA FLOWERS DPM BIRTHDATE: [birth year] DOS: 12/31/2017 HISTORY OF PRESENT ILLNESS: The patient presents as a 77-year-old male who [facility] Plummer. The patient had partial fifth metatarsal resection performed and has had wound VAC placement. The patient also had history of ulceration to the right great toe and plantar first left intermetatarsal space. The patient was admitted for shortness of breath and CHF. PAST MEDICAL HISTORY: Atrial fibrillation, coronary artery disease, CHF, chronic kidney disease stage 3, contact dermatitis, diabetic foot ulcer, hyperlipidemia, osteomyelitis, hypertension, left bundle branch block, moderate protein-calorie malnutrition, morbid obesity, type 2 diabetes, vitamin D deficiency. SURGICAL HISTORY: Multiple foot surgeries, coronary artery stent placement. The patient had a recent arterial lower extremity vascular intervention performed, history of spinal cyst resection of tailbone. SOCIAL HISTORY: Denies illicit drug use. Denies alcohol or smoking. FAMILY HISTORY: Father at age 57 of [place]. Mother at age 58 of alcohol cirrhosis of liver. ALLERGIES: No known allergies. PHYSICAL EXAMINATION: LOWER EXTREMITY EXAMINATION: Lymphedema of both lower extremities. Pedal pulses diminished due to lymphedema. Ulceration, plantar distal right hallux is full thickness, but much improved since previous exam. No further eschar noted. No signs of infection of the area. Ulceration, plantar left foot has resolved. Wound VAC is in place at the lateral fifth metatarsal. There is mild erythema to the dorsal lateral right foot noted with lymphedema. No definitive fluctuance, but lymphedema noted, which may be consistent with underlying abscess or could be related to the patient's current history. ASSESSMENT: Osteomyelitis, cellulitis, lymphedema. PLAN: Evaluation and management. The wound VAC will be kept in place. Order an MRI to verify no evidence of additional abscess and the patient will be seen tomorrow for followup. [place], [place] REPORT OF CONSULTATION NAME: MIR VALIENTE UNIT #: [id number] ROOM: 501 DOCTOR: EVANGELISTA FLOWERS DPM BIRTHDATE: [birth year] EVANGELISTA FLOWERS DPM CM:CONSTR:REPORT OF CONSULTATION 1159 01/01/18 0040 interface
--- NOTE | ~2017-12-30 | PR ---
[place], [place] PROGRESS NOTE [id number] #: [id number] ROOM: [facility] DOCTOR: EVANGELISTA FLOWERS DPM BIRTHDATE: [birth year] DOS: 01/02/2018 SUBJECTIVE: The patient is seen for followup post osteomyelitis, right foot. OBJECTIVE: There is decreased erythema and edema to the right foot, lymphedema still noted in bilateral lower extremities. Improvement noted from previous exam; however, wound VAC is intact. The CT scan revealed no evidence of distinct abscess identified. Unremarkable postsurgical changes noted. ASSESSMENT: Post-osteomyelitis, lymphedema, bilateral. PLAN: Continue antibiotics. Continue wound VAC, right. We will continue to monitor the patient closely. EVANGELISTA FLOWERS DPM CM:PNDAMION 1205 2328 EVANGELISTA FLOWERS DPM 01/02/18 2326 interface
--- NOTE | ~2017-12-30 | PR ---
[place], [place] PROGRESS NOTE NAME: MIR VALIENTE UNIT #: [id number] ROOM: 501 DOCTOR: MARIE FLORES DPM BIRTHDATE: [birth year] DOS: 01/06/2018 SUBJECTIVE: This patient is seen today for reevaluation of diabetic ulcers on his right foot as well as a callused area on the bottom of his left foot. He states he is still having problems with swelling, but it is improving. His breathing is improved. He denies any pain in either foot. OBJECTIVE: NEUROLOGIC: Neurologic status is absent. Arterial status is intact. There is still edema noted in both lower extremities with negative Homans sign. The wound on the right lateral fifth metatarsal area is improved. There is less maceration. Betadine appears to be drying the area out nicely. There is no purulent drainage or malodor, no localized increased temperature. Distal right great toe wound is fairly clean. Minimal eschar noted. No signs of active infection. Plantar left first metatarsal has some hyperkeratotic tissue, minimal hemorrhagic tissue with no signs of infection. ASSESSMENT: History of fifth metatarsal resection, right foot; diabetic ulcer, right foot x 2; pre-ulcerative area plantar left foot; and edema bilaterally. PLAN: Discussed with the patient. Wounds were stable at this time. No gross signs of infection. The wound on the right foot is less macerated and drying nicely with the Betadine and daily dressings. Continue to limit weightbearing. Continue to elevate his legs whenever possible. Reevaluate tomorrow. MARIE FLORES DPM CM:PNTRANS [id number] MARIE FLORES DPM 01/06/18 2331 interface
--- NOTE | ~2017-12-30 | CON ---
[place], [place] REPORT OF CONSULTATION NAME: MIR VALIENTE UNIT #: [id number] ROOM: 501 DOCTOR: GINO MARTIN MD BIRTHDATE: [birth year] DOS: 01/01/2018 REASON FOR CONSULTATION: Shortness of breath. HISTORY OF PRESENT ILLNESS: A 77-year-old gentleman well known to me, last ejection fraction is about 45%-50%, admitted with significant shortness of breath. The patient reportedly had Lasix increased yesterday by 80 mg at the longterm, became severely short of breath and she came here. The patient has wound VAC present with previous admissions for osteomyelitis. The patient has also gained significant weight. The patient was given intravenous Lasix in the Emergency Room. I was consulted because of significant bradycardia and the Toprol has been discontinued and heart rate is much better. PAST MEDICAL HISTORY: Diabetes, hypertension, hyperlipidemia, left bundle branch block, and osteomyelitis. PAST SURGICAL HISTORY: Coronary artery disease and stent placement. HOME MEDICATIONS: He is on Eliquis, insulin, lisinopril, metoprolol 12.5 b.i.d., and omeprazole. ALLERGIES: None. SOCIAL HISTORY: Denies any alcohol or drug abuse. FAMILY HISTORY: Noncontributory. REVIEW OF SYSTEMS: CONSTITUTIONAL: No fever, no chills. HEENT: No visual disturbances, hearing problems. CARDIOVASCULAR: Reports lower extremity edema. RESPIRATORY: Reports of shortness of breath. ABDOMEN: Reports of constipation. GASTROINTESTINAL: No nausea, no vomiting. GENITOURINARY: No dysuria. PHYSICAL EXAMINATION: VITAL SIGNS: Blood pressure is 130/70 and heart rate is 70. GENERAL: The patient is alert, awake, and oriented. HEENT: Unremarkable. NECK: Supple. No JVD. LUNGS: Diminished air entry. Positive rales at the bases. HEART: No gallop per cardiac-johnson. EXTREMITIES: About 2-3+ edema. NEUROLOGIC: No masses. LABORATORY DATA: Sodium is 140, potassium is 4.6, and creatinine is 1.5. Hemoglobin is 8.4 and hematocrit is 28. IMPRESSION: [place], [place] REPORT OF CONSULTATION NAME: MIR VALIENTE UNIT #: [id number] ROOM: 501 DOCTOR: GINO MARTIN MD BIRTHDATE: [birth year] 1. Acute congestive heart failure. We will review the echocardiogram. 2. Anemia. 3 Hyperglycemia. 4. Bradycardia. 5. Hypertension. RECOMMENDATIONS: Hold off on the beta-cathleen at this point because of bradycardic episodes. Monitor the I's and O's very closely. Probably continue the lisinopril, aspirin, and apixaban. Strict I's and O's. Monitor the blood sugars closely and I will follow up. GINO MARTIN MD CM:CONSTR:REPORT OF CONSULTATION 1633 01/02/18 0450 interface
--- NOTE | ~2017-12-30 | PR ---
[place], [place] PROGRESS NOTE NAME: MIR VALIENTE UNIT #: [id number] ROOM: 501 DOCTOR: JAQUELIN JAMES MD BIRTHDATE: [birth year] DOS: 01/06/2018 SUBJECTIVE: He has been on IV diuretics since admission. For the last 5 days, he has had over 12 liters negative fluid balance. His legs are smaller. He is breathing better. Edema in the upper extremities has resolved. He is eating fine. No chest pain or any palpitations. OBJECTIVE: GENERAL: The patient is very obese. Weight is down substantially. VITAL SIGNS: Pulse is 84, blood pressure 154/70. NECK: JVP is still mildly elevated. LUNGS: He still has few bibasilar crackles. LABORATORY DATA: BUN is 35, creatinine 1.65, potassium 4.3, BUN was 36, and creatinine 1.59 on admission. IMPRESSION: This patient has had lykcg-dw-pmawylx diastolic heart failure with substantial improvement. Renal function is holding pretty much the same. I would recommend continuing IV loop diuretic for another couple of days. I saw this patient on behalf of Dr. Strauss. JAQUELIN JAMES MD CM:PNTRANS [id number] JAQUELIN JAMES MD 01/07/18 0428 interface
--- NOTE | ~2017-12-30 | EKG ---
[place], [place] ELECTROCARDIOGRAM REPORT NAME: MIR VALIENTE UNIT #: [id number] ROOM: [facility] DOCTOR: KOMAL DRAFT REPORT BIRTHDATE: [birth year] [facility] Test Date: 2018-01-01 Test Time: 15:13:01 Pat Name: MIR VALIENTE Department: Room: [facility] Gender: M Program Specialist: TAYLER : 1940 Requested By: AMY VERDUGO Order Number: [id number] Reading MD: Measurements Intervals [place] Rate: 77 P: 0 [place]: 72 QRS: -26 QRSD: 152 T: 116 QT: 436 QTc: 494 Interpretive Statements Uncertain rhythm: review Left bundle branch block No previous ECG available for comparison CM:EKGRPT:ELECTROCARDIOGRAM REPORT 1513 1217 AMY JONES DRAFT REPORT AMY VERDUGO DO
--- NOTE | ~2017-12-30 | PR ---
[place], [place] PROGRESS NOTE NAME: MIR VALIENTE UNIT #: [id number] ROOM: 501 DOCTOR: JAQUELIN JAMES MD BIRTHDATE: [birth year] DOS: 01/02/[address] Strauss. SUBJECTIVE: The patient has been diagnosed with heart failure with significant swelling of the legs and he has been on IV furosemide with reasonable diuresis initially, but this is tapering off now. He is still short of breath, but has no chest pain or palpitations. His appetite has been reasonable. PHYSICAL EXAMINATION: GENERAL: The patient who is morbidly obese, alert. Complexion is little pale. NECK: JVP is elevated in sitting position. LUNGS: Breath sounds are diminished with some adventitious bilaterally. EXTREMITIES: Edema below the knees is severe and 1+ sacral edema is present. There is some erythema of the legs as well suggestive of infection. LABORATORY DATA: BUN and creatinine have not changed much despite diuresis. RECOMMENDATIONS: IV furosemide is being increased to 120 mg b.i.d. If that does not work, I think he may require continuous infusion of loop diuretic. JAQUELIN JAMES MD CM:PNTRANS 1928 4 JAQUELIN JAMES MD 01/03/1813 interface
[2017-12-30 09:30] VITALS: BP 153/72
[~2017-12-30 16:49] MED LIST changes: +Bactroban Oint22 GM T; +CEFAZOLIN2 GM/20 ML IV; +ELIQUIS2.5 M1 PO; +Humalog SQ; +INVOKANA100 M1 PO; +LASIX40 MG PO; +LISINOPRIL5 MG PO; +LOSARTAN POTAS100 M1 PO; +METOPROLOL SUCC25 M2 PO; +METRONIDAZOLE500 M1 PO; +PLAVIX75 M1 PO
[2017-12-30 16:50] VITALS: BP 140/55
[2017-12-30 17:35] LABS: BASO # 0.1 10*3/uL (0.0-0.1); EOS # 0.2 10*3/uL (0.0-0.4); EOS % 2.5 % (1.0-4.0); HEMATOCRIT 27.4 % (42.0-52.0); HEMOGLOBIN 8.4 g/dl (14.0-18.0); LYMPH # 1.1 10*3/uL (1.3-4.4); MEAN CELL VOLUME 90.1 fl (80.0-94.0); MEAN CORPUSCULAR HGB 27.6 pg (27.0-31.0); MEAN CORPUSCULAR HGB CONC 30.7 g/dl (33.0-37.0); MEAN PLATELET VOLUME 9.6 fl (9.6-12.3); MONO # 0.9 10*3/uL (0.1-1.0); MONO % 10.8 % (3.0-9.0); NEUT # 5.7 10*3/uL (2.3-7.9); NEUT % 71.4 % (47.0-73.0); PLATELET COUNT AUTOMATED 304 10*3/uL (130-400); RED BLOOD COUNT 3.04 10*6/uL (4.50-5.90); RED CELL DISTRI WIDTH 15.6 % (0-14.5)
[2017-12-30 17:45] LABS: ACT PARTIAL THROMBO TIME 25.5 SECONDS (20.8-31.5); INTERNATIONAL NORM RATIO 1.1 (2.0-3.5)
[2017-12-30 17:50] LABS: ALBUMIN 3.1 gm/dl (3.1-4.5); ALKALINE PHOSPHATASE 64 U/L (45-117); BUN 33 mg/dl (7-24); CHLORIDE 104 mmol/L (98-107); CREATININE 1.38 mg/dL (0.70-1.30); LIPASE 72 U/L (73-393); POTASSIUM 4.6 mmol/L (3.5-5.1); SGOT/AST 12 IU/L (3-35); SGPT/ALT 8 U/L (12-78); SODIUM 139 mmol/L (136-145); TROPONIN I 0.018 ng/ml (<0.045)
[2017-12-30 18:00] VITALS: BP 146/62
[2017-12-30 21:00] VITALS: BP 165/57
[2017-12-31] VITALS (7 sets, daily range): BP systolic 104–160; BP diastolic 55–78
[2017-12-31] MEDS ORDERED: ACETAMINOPHEN325 M2 PO (00:37)
[2017-12-31] MEDS ORDERED: DUONEB 3 MG/3 ML3 M1 INH (00:38)
[2017-12-31] MEDS ORDERED: LASIX40 MG PO (00:40)
[2017-12-31 06:47] LABS: BASO # 0.1 10*3/uL (0.0-0.1); BASO % 1.1 % (0.0-1.0); EOS # 0.2 10*3/uL (0.0-0.4); HEMATOCRIT 30.3 % (42.0-52.0); HEMOGLOBIN 8.9 g/dl (14.0-18.0); LYMPH # 0.9 10*3/uL (1.3-4.4); LYMPH % 9.7 % (27.0-41.0); MEAN CELL VOLUME 91.5 fl (80.0-94.0); MEAN CORPUSCULAR HGB 26.9 pg (27.0-31.0); MEAN CORPUSCULAR HGB CONC 29.4 g/dl (33.0-37.0); MEAN PLATELET VOLUME 9.5 fl (9.6-12.3); MONO # 0.8 10*3/uL (0.1-1.0); MONO % 8.5 % (3.0-9.0); NEUT % 78.5 % (47.0-73.0); PLATELET COUNT AUTOMATED 335 10*3/uL (130-400); RED BLOOD COUNT 3.31 10*6/uL (4.50-5.90); RED CELL DISTRI WIDTH 15.7 % (0-14.5); WHITE BLOOD COUNT 8.9 10*3/uL (4.8-10.8)
[2017-12-31 06:51] LABS: ACT PARTIAL THROMBO TIME 25.4 SECONDS (20.8-31.5); INTERNATIONAL NORM RATIO 1.1 (2.0-3.5)
[2017-12-31 06:59] LABS: ALBUMIN 3.2 gm/dl (3.1-4.5); CREATININE 1.59 mg/dL (0.70-1.30); PHOSPHOROUS 3.6 mg/dL (2.5-4.9); POTASSIUM 4.7 mmol/L (3.5-5.1); TOTAL PROTEIN 7.2 gm/dL (6.4-8.2)
[2018-01-01 07:27] LABS: BASO # 0.1 10*3/uL (0.0-0.1); BASO % 1.1 % (0.0-1.0); EOS # 0.2 10*3/uL (0.0-0.4); EOS % 2.1 % (1.0-4.0); HEMOGLOBIN 8.4 g/dl (14.0-18.0); LYMPH # 0.8 10*3/uL (1.3-4.4); LYMPH % 9.8 % (27.0-41.0); MEAN CELL VOLUME 90.6 fl (80.0-94.0); MEAN CORPUSCULAR HGB 27.2 pg (27.0-31.0); MEAN PLATELET VOLUME 9.5 fl (9.6-12.3); MONO # 0.8 10*3/uL (0.1-1.0); MONO % 9.9 % (3.0-9.0); NEUT # 6.2 10*3/uL (2.3-7.9); NEUT % 76.9 % (47.0-73.0); PLATELET COUNT AUTOMATED 314 10*3/uL (130-400); RED BLOOD COUNT 3.09 10*6/uL (4.50-5.90); RED CELL DISTRI WIDTH 15.6 % (0-14.5); WHITE BLOOD COUNT 8.1 10*3/uL (4.8-10.8)
[2018-01-01 07:44] LABS: CREATININE 1.5 mg/dL (0.70-1.30); POTASSIUM 4.6 mmol/L (3.5-5.1)
[2018-01-01 08:00] VITALS: BP 112/50
[2018-01-01 12:00] VITALS: BP 149/68
[2018-01-01 16:00] VITALS: BP 151/72
[2018-01-01 20:00] VITALS: BP 161/64
[2018-01-02] VITALS: BP 127/62
[2018-01-02 06:09] LABS: BASO # 0.1 10*3/uL (0.0-0.1); EOS # 0.2 10*3/uL (0.0-0.4); EOS % 2.3 % (1.0-4.0); HEMATOCRIT 27.1 % (42.0-52.0); HEMOGLOBIN 8.3 g/dl (14.0-18.0); LYMPH % 13.6 % (27.0-41.0); MEAN CELL VOLUME 91.2 fl (80.0-94.0); MEAN CORPUSCULAR HGB 27.9 pg (27.0-31.0); MEAN CORPUSCULAR HGB CONC 30.6 g/dl (33.0-37.0); MEAN PLATELET VOLUME 9.3 fl (9.6-12.3); MONO # 0.8 10*3/uL (0.1-1.0); MONO % 10.3 % (3.0-9.0); NEUT # 5.3 10*3/uL (2.3-7.9); NEUT % 72.5 % (47.0-73.0); PLATELET COUNT AUTOMATED 282 10*3/uL (130-400); RED BLOOD COUNT 2.97 10*6/uL (4.50-5.90); RED CELL DISTRI WIDTH 15.7 % (0-14.5); WHITE BLOOD COUNT 7.3 10*3/uL (4.8-10.8)
[2018-01-02 06:28] LABS: CREATININE 1.51 mg/dL (0.70-1.30); POTASSIUM 4.6 mmol/L (3.5-5.1)
[2018-01-02 08:00] VITALS: BP 155/79
[2018-01-02 12:00] VITALS: BP 107/67
[2018-01-02 16:00] VITALS: BP 157/79
[2018-01-02 20:00] VITALS: BP 148/92
[2018-01-03] VITALS: BP 148/71
[2018-01-03 06:11] LABS: BASO # 0.1 10*3/uL (0.0-0.1); BASO % 0.9 % (0.0-1.0); EOS # 0.2 10*3/uL (0.0-0.4); EOS % 2.2 % (1.0-4.0); HEMATOCRIT 27.7 % (42.0-52.0); HEMOGLOBIN 8.4 g/dl (14.0-18.0); LYMPH # 1.1 10*3/uL (1.3-4.4); LYMPH % 14.4 % (27.0-41.0); MEAN CELL VOLUME 90.2 fl (80.0-94.0); MEAN CORPUSCULAR HGB 27.4 pg (27.0-31.0); MEAN CORPUSCULAR HGB CONC 30.3 g/dl (33.0-37.0); MEAN PLATELET VOLUME 9.5 fl (9.6-12.3); MONO # 0.7 10*3/uL (0.1-1.0); MONO % 9.4 % (3.0-9.0); NEUT # 5.4 10*3/uL (2.3-7.9); NEUT % 72.7 % (47.0-73.0); PLATELET COUNT AUTOMATED 295 10*3/uL (130-400); RED BLOOD COUNT 3.07 10*6/uL (4.50-5.90); RED CELL DISTRI WIDTH 15.5 % (0-14.5); WHITE BLOOD COUNT 7.4 10*3/uL (4.8-10.8)
[2018-01-03 06:32] LABS: CREATININE 1.48 mg/dL (0.70-1.30); POTASSIUM 4.4 mmol/L (3.5-5.1)
[2018-01-03 08:00] VITALS: BP 102/52
[2018-01-03 12:00] VITALS: BP 110/44
[2018-01-03 16:00] VITALS: BP 159/69
[2018-01-03 20:00] VITALS: BP 160/59
[2018-01-04] VITALS: BP 133/62
[2018-01-04 06:20] LABS: BASO # 0.1 10*3/uL (0.0-0.1); BASO % 1.4 % (0.0-1.0); EOS # 0.3 10*3/uL (0.0-0.4); EOS % 4.3 % (1.0-4.0); HEMATOCRIT 27.9 % (42.0-52.0); HEMOGLOBIN 8.3 g/dl (14.0-18.0); LYMPH # 1.2 10*3/uL (1.3-4.4); LYMPH % 15.9 % (27.0-41.0); MEAN CELL VOLUME 90.3 fl (80.0-94.0); MEAN CORPUSCULAR HGB 26.9 pg (27.0-31.0); MEAN CORPUSCULAR HGB CONC 29.7 g/dl (33.0-37.0); MEAN PLATELET VOLUME 9.8 fl (9.6-12.3); MONO # 0.9 10*3/uL (0.1-1.0); MONO % 11.9 % (3.0-9.0); NEUT # 4.8 10*3/uL (2.3-7.9); NEUT % 66.2 % (47.0-73.0); PLATELET COUNT AUTOMATED 296 10*3/uL (130-400); RED BLOOD COUNT 3.09 10*6/uL (4.50-5.90); RED CELL DISTRI WIDTH 15.6 % (0-14.5); WHITE BLOOD COUNT 7.3 10*3/uL (4.8-10.8)
[2018-01-04 06:44] LABS: CREATININE 1.45 mg/dL (0.70-1.30); POTASSIUM 4.3 mmol/L (3.5-5.1)
[2018-01-04 08:00] VITALS: BP 155/50
[2018-01-04 08:45] VITALS: BP 153/53
[2018-01-04 12:58] VITALS: BP 138/60
[2018-01-04 16:00] VITALS: BP 140/66
[2018-01-04 20:00] VITALS: BP 134/71
[2018-01-05] VITALS: BP 115/53
[2018-01-05 06:00] LABS: BASO # 0.1 10*3/uL (0.0-0.1); BASO % 0.9 % (0.0-1.0); EOS # 0.3 10*3/uL (0.0-0.4); EOS % 3.8 % (1.0-4.0); HEMATOCRIT 28.3 % (42.0-52.0); HEMOGLOBIN 8.6 g/dl (14.0-18.0); LYMPH # 1.3 10*3/uL (1.3-4.4); LYMPH % 16.8 % (27.0-41.0); MEAN CORPUSCULAR HGB CONC 30.4 g/dl (33.0-37.0); MEAN PLATELET VOLUME 9.7 fl (9.6-12.3); MONO # 0.9 10*3/uL (0.1-1.0); MONO % 12.2 % (3.0-9.0); NEUT % 65.9 % (47.0-73.0); PLATELET COUNT AUTOMATED 285 10*3/uL (130-400); RED BLOOD COUNT 3.18 10*6/uL (4.50-5.90); RED CELL DISTRI WIDTH 15.5 % (0-14.5); WHITE BLOOD COUNT 7.6 10*3/uL (4.8-10.8)
[2018-01-05 06:29] LABS: CREATININE 1.65 mg/dL (0.70-1.30); POTASSIUM 4.3 mmol/L (3.5-5.1)
[2018-01-05 08:00] VITALS: BP 144/90
[2018-01-05 12:00] VITALS: BP 120/94
[2018-01-05 16:00] VITALS: BP 126/77
[2018-01-05 19:57] VITALS: BP 130/80
[2018-01-06] VITALS: BP 155/71
[2018-01-06 06:24] LABS: BASO # 0.1 10*3/uL (0.0-0.1); BASO % 1.2 % (0.0-1.0); EOS # 0.2 10*3/uL (0.0-0.4); EOS % 3.1 % (1.0-4.0); HEMATOCRIT 31.2 % (42.0-52.0); HEMOGLOBIN 9.3 g/dl (14.0-18.0); LYMPH # 1.2 10*3/uL (1.3-4.4); LYMPH % 16.9 % (27.0-41.0); MEAN CELL VOLUME 88.6 fl (80.0-94.0); MEAN CORPUSCULAR HGB 26.4 pg (27.0-31.0); MEAN CORPUSCULAR HGB CONC 29.8 g/dl (33.0-37.0); MEAN PLATELET VOLUME 9.4 fl (9.6-12.3); MONO # 0.7 10*3/uL (0.1-1.0); MONO % 10.1 % (3.0-9.0); NEUT % 68.4 % (47.0-73.0); PLATELET COUNT AUTOMATED 315 10*3/uL (130-400); RED BLOOD COUNT 3.52 10*6/uL (4.50-5.90); RED CELL DISTRI WIDTH 15.3 % (0-14.5); WHITE BLOOD COUNT 7.4 10*3/uL (4.8-10.8)
[2018-01-06 06:55] LABS: CREATININE 1.65 mg/dL (0.70-1.30); POTASSIUM 4.3 mmol/L (3.5-5.1)
[2018-01-06 08:00] VITALS: BP 150/71
[2018-01-06 12:00] VITALS: BP 153/55
[2018-01-06 16:00] VITALS: BP 154/70
[2018-01-06 20:00] VITALS: BP 131/62
[2018-01-06 21:00] VITALS: BP 148/62
[2018-01-07] VITALS: BP 150/66
[2018-01-07 06:41] LABS: BASO # 0.1 10*3/uL (0.0-0.1); EOS # 0.2 10*3/uL (0.0-0.4); EOS % 3.3 % (1.0-4.0); HEMATOCRIT 27.3 % (42.0-52.0); HEMOGLOBIN 8.4 g/dl (14.0-18.0); LYMPH # 1.2 10*3/uL (1.3-4.4); LYMPH % 16.9 % (27.0-41.0); MEAN CELL VOLUME 87.2 fl (80.0-94.0); MEAN CORPUSCULAR HGB 26.8 pg (27.0-31.0); MEAN CORPUSCULAR HGB CONC 30.8 g/dl (33.0-37.0); MEAN PLATELET VOLUME 9.7 fl (9.6-12.3); MONO # 0.8 10*3/uL (0.1-1.0); MONO % 10.8 % (3.0-9.0); NEUT # 4.7 10*3/uL (2.3-7.9); NEUT % 67.7 % (47.0-73.0); PLATELET COUNT AUTOMATED 244 10*3/uL (130-400); RED BLOOD COUNT 3.13 10*6/uL (4.50-5.90); RED CELL DISTRI WIDTH 15.4 % (0-14.5); WHITE BLOOD COUNT 6.9 10*3/uL (4.8-10.8)
[2018-01-07 06:52] LABS: ALBUMIN 3.1 gm/dl (3.1-4.5); CREATININE 1.7 mg/dL (0.70-1.30); PHOSPHOROUS 3.6 mg/dL (2.5-4.9)
[2018-01-07 08:00] VITALS: BP 150/92
[2018-01-07 12:00] VITALS: BP 133/57
[2018-01-07 16:00] VITALS: BP 147/68
[2018-01-07 20:00] VITALS: BP 147/70
[2018-01-08] VITALS: BP 136/54
[2018-01-08 06:36] LABS: BASO # 0.1 10*3/uL (0.0-0.1); BASO % 0.8 % (0.0-1.0); EOS # 0.3 10*3/uL (0.0-0.4); EOS % 3.8 % (1.0-4.0); HEMATOCRIT 28.1 % (42.0-52.0); HEMOGLOBIN 8.5 g/dl (14.0-18.0); LYMPH # 1.2 10*3/uL (1.3-4.4); LYMPH % 15.6 % (27.0-41.0); MEAN CELL VOLUME 88.1 fl (80.0-94.0); MEAN CORPUSCULAR HGB 26.6 pg (27.0-31.0); MEAN CORPUSCULAR HGB CONC 30.2 g/dl (33.0-37.0); MEAN PLATELET VOLUME 9.4 fl (9.6-12.3); MONO # 0.8 10*3/uL (0.1-1.0); MONO % 10.2 % (3.0-9.0); NEUT # 5.1 10*3/uL (2.3-7.9); NEUT % 69.5 % (47.0-73.0); PLATELET COUNT AUTOMATED 243 10*3/uL (130-400); RED BLOOD COUNT 3.19 10*6/uL (4.50-5.90); RED CELL DISTRI WIDTH 15.2 % (0-14.5); WHITE BLOOD COUNT 7.4 10*3/uL (4.8-10.8)
[2018-01-08 06:44] LABS: ALBUMIN 3.4 gm/dl (3.1-4.5); CREATININE 1.69 mg/dL (0.70-1.30); PHOSPHOROUS 4.1 mg/dL (2.5-4.9); POTASSIUM 3.6 mmol/L (3.5-5.1)
[2018-01-08 12:00] VITALS: BP 117/78
[2018-01-08] MEDS ORDERED: LASIX40 MG PO (13:43)
[2018-01-08] MEDS ORDERED: Humalog SQ (13:59)
[2018-01-17] MEDS ORDERED: GOOD NEIGH100 MG/52 PO (19:38)
[2018-01-17] MEDS ORDERED: LEVOFLOXACIN500 MG PO (19:39)
[2018-01-17] MEDS ORDERED: SANTYL30 GM T (19:43)
[2018-01-23] MEDS ORDERED: LASIX40 MG PO (14:58)
[2018-02-03] MEDS ORDERED: ARGINAID POWDE1 EACH PO (16:34)
[2018-02-03] MEDS ORDERED: Bactroban Oint22 GM T (16:36)
[2018-02-06] MEDS ORDERED: NYSTOP60 GM T (13:34)
[2018-02-06] MEDS ORDERED: HYDROCODONE-AC1 EAC1 PO (13:36)
== END 2018-01-08 16:31 | disposition other institution (70) | DRG 291 ==
LOC: ED 16:49 → EDHOLD 18:32 → 5E 18:32
PROVIDERS: Emergency Medicine; Family Medicine; Internal Medicine; Registered Nurse; Student in an Organized Health Care Education/Training Program
DX: I13.0 Hypertensive heart and chronic kidney disease with heart failure and stage 1 through stage 4 chronic kidney disease, or unspecified chronic kidney disease (principal); I50.23 Acute on chronic systolic (congestive) heart failure; E44.0 Moderate protein-calorie malnutrition; E11.621 Type 2 diabetes mellitus with foot ulcer; E11.22 Type 2 diabetes mellitus with diabetic chronic kidney disease; L03.115 Cellulitis of right lower limb; E66.01 Morbid (severe) obesity due to excess calories; E11.65 Type 2 diabetes mellitus with hyperglycemia; I48.2 Chronic atrial fibrillation; M86.8X7 Other osteomyelitis, ankle and foot; Z68.43 Body mass index [BMI] 50.0-59.9, adult; L97.519 Non-pressure chronic ulcer of other part of right foot with unspecified severity; L89.892 Pressure ulcer of other site, stage 2; R79.82 Elevated C-reactive protein (CRP); N18.3 Chronic kidney disease, stage 3 (moderate); E55.9 Vitamin D deficiency, unspecified; D64.9 Anemia, unspecified; E78.5 Hyperlipidemia, unspecified; R00.1 Bradycardia, unspecified; E11.69 Type 2 diabetes mellitus with other specified complication; I89.0 Lymphedema, not elsewhere classified; I25.10 Atherosclerotic heart disease of native coronary artery without angina pectoris; I44.7 Left bundle-branch block, unspecified; L25.9 Unspecified contact dermatitis, unspecified cause; Z79.01 Long term (current) use of anticoagulants; Z95.5 Presence of coronary angioplasty implant and graft; Z82.49 Family history of ischemic heart disease and other diseases of the circulatory system; Z83.3 Family history of diabetes mellitus; Z83.79 Family history of other diseases of the digestive system; Z79.4 Long term (current) use of insulin; Z79.82 Long term (current) use of aspirin

== ENCOUNTER 2018-03-01 00:05 | Inpatient (IN) | payer MEDICARE, MEDICAID ==
[~2018-03-01] VITALS: Ht 175 cm; Wt 138.0 kg
[2018-03-01] VITALS (9 sets, daily range): BP systolic 96–112; BP diastolic 52–78
--- NOTE | ~2018-03-01 | EKG ---
[place], [place] ELECTROCARDIOGRAM REPORT NAME: MIR VALIENTE UNIT #: [id number] ROOM: 532 DOCTOR: KOMAL DRAFT REPORT BIRTHDATE: [birth year] [facility] [place] Test Date: 2018-03-01 Test Time: 17:07:39 Pat Name: MIR VALIENTE Department: Room: 532 1 Gender: M Information Broker: : 1940 Requested By: BOZENA ZHOU Order Number: [id number] Reading MD: Ken Strauss MD Measurements Intervals [place] Rate: 67 P: RI: QRS: -24 QRSD: 153 T: 78 QT: 454 QTc: 480 Interpretive Statements Atrial fibrillation IVCD, consider atypical LBBB Compared to ECG 01/17/2018 16:04:09 No significant changes Electronically Signed On 03-04-2018 4:59:55 PDT by Ken Strauss MD CM:EKGRPT:ELECTROCARDIOGRAM REPORT 1707 0459 BOZENA ZHOU EPIPHANY DRAFT REPORT BOZENA ZHOU
--- NOTE | ~2018-03-01 | PR ---
[place], [place] PROGRESS NOTE NAME: MIR VALIENTE UNIT #: [id number] ROOM: 532 DOCTOR: JAQUELIN JAMES MD BIRTHDATE: [birth year] DOS: 03/03/2018 SUBJECTIVE: This patient has severe right heart failure and was given larger dose of IV furosemide and fluid restriction was put at 1500 mL per day. He was diuresed aggressively within the last 24 hours. He did not have any cramps or any nausea. He is not dizzy. No palpitations. His breathing is fine. No fever or chills. Appetite is good. Mood is good as well. PHYSICAL EXAMINATION: VITAL SIGNS: Temperature 97.9 degrees, pulse is 88, blood pressure 146/60. NECK: JVP is still very elevated. LUNGS: He has essentially clear lungs. EXTREMITIES: There is severe edema in the lower part of the torso and lower extremities remains. LABORATORY DATA: Hemoglobin is 8 g/dL. BUN is 32 dropped from 29, creatinine 1.57 down from 1.62. IMPRESSION: This patient has severe right heart failure and was -6 liters fluid balance i.e., excellent diuresis. RECOMMENDATIONS: For the time being, continue with the same dose of furosemide while monitoring potassium and magnesium. Magnesium oxide 400 mg b.i.d. is being started for fear of hypomagnesemia. JAQUELIN JAMES MD CM:PNTRANS [id number] [id number] JAQUELIN JAMES MD 03/03/18 8159 interface
--- NOTE | ~2018-03-01 | CON ---
[place], [place] REPORT OF CONSULTATION [id number] UNIT #: [id number] ROOM: 532 DOCTOR: EVANGELISTA FLOWERS DPM BIRTHDATE: [birth year] DOS: 03/01/2018 SUBJECTIVE: The patient presents as 77-year-old male who was admitted for pneumonia and shortness of breath. The patient has been followed for chronic ulceration in the lateral right foot and previous resection of bone on the fifth metatarsal with osteomyelitis. PAST MEDICAL HISTORY: Atrial fibrillation, coronary artery disease, CHF, chronic diastolic heart failure, chronic kidney disease stage 3. Fecal occult blood test positive GI bleeding, history of polyp of colon. History of diabetic foot ulcer with osteomyelitis, hyperlipidemia, hypertension, left bundle branch block, lymphedema, moderate protein-calorie malnutrition, morbid obesity, normocytic anemia, osteomyelitis, type 2 diabetes mellitus, vitamin D deficiency. PAST SURGICAL HISTORY: Resection of bone, right foot; incision and drainage; history of coronary artery stent placement; spinal cyst resection in the area of tailbone. SOCIAL HISTORY: Denies alcohol consumption. No illicit drug use or tobacco use. FAMILY HISTORY: Father at age 57, cause [place]. Mother, history of CHF, at age 58, chronic cirrhosis of liver. ALLERGIES: Denied. PHYSICAL EXAMINATION: LOWER EXTREMITY EXAMINATION: Edema, lymphedema, bilateral lower extremities with superficial ulcerations to both lower extremities. Mild discomfort to both lower extremities with mild erythema. Ulceration to the lateral fifth MPJ has granulated from previous exam is still full thickness to and through subcutaneous tissue level. There are no signs of purulent drainage or fluctuance. No deep sinus tract of bone noted. No signs of purulent drainage or foul odor. Ulceration at the distal right hallux is partial thickness. ASSESSMENT: Diabetic ulceration, lateral fifth right MPJ; previous resection of bone for osteomyelitis; lymphedema; edema, bilateral lower extremity; diabetes with peripheral vascular disease. PLAN: Evaluation and management. Ordered Betadine-soaked Adaptic and gauze dressing apply to ulceration lateral fifth right MPJ daily. Ordered venous Doppler bilateral lower extremity. Ordered new radiographs of the right foot three views. If any changes from previous exam, possible repeat MRI. The patient will be followed accordingly. The patient does not appear to need any surgical intervention at this time. We will follow up with continued conservative care. [place], [place] REPORT OF CONSULTATION NAME: MIR VALIENTE UNIT #: [id number] ROOM: 532 DOCTOR: EVANGELISTA FLOWERS DPM BIRTHDATE: [birth year] EVANGELISTA FLOWERS DPM CM:CONSTR:REPORT OF CONSULTATION 1040 03/01/18 1250 interface
--- NOTE | ~2018-03-01 | CON ---
[place], [place] REPORT OF CONSULTATION NAME: MIR VALIENTE UNIT #: [id number] ROOM: 532 DOCTOR: JAQUELIN JAMES MD BIRTHDATE: [birth year] DOS: 03/01/2018 HISTORY OF PRESENT ILLNESS: This is a 77-year-old [place] man with a history of chronic diastolic heart failure. He was in this hospital a few months ago with severe cardiac decompensation. At that time, his chest x-ray showed only mild pulmonary congestion. He came into the hospital because of increasing swelling of the legs, oozing from the right leg and shortness of breath, which is chronic, but it had gotten worse. He sleeps propped up at night. He also has had a cough with whitish sputum. No blood in it. He has not had any palpitations, no loss of consciousness. He has not had any chest pain, palpitations or any nausea, vomiting, had not had any blood in the stools. PAST MEDICAL HISTORY: Chronic atrial fibrillation and left bundle branch block, chronic diastolic heart failure with exacerbation, chronic kidney disease, essential hypertension, hyperlipidemia, morbid obesity, chronic anemia, osteomyelitis, type 2 diabetes mellitus, has had GI bleeding in the past. SOCIAL HISTORY: He does not smoke nor does he drink alcoholic beverages. Lives at home and his son helps him. MEDICATIONS: DuoNeb aerosol treatments, acetaminophen, apixaban 2.5 mg b.i.d., vitamin D, furosemide 40 mg daily, loratadine 10 mg daily, metoprolol succinate 12.5 mg b.i.d., omeprazole 40 daily, insulin. This is a 70/30 mix 40 units in the evening and 45 units in the morning. PHYSICAL EXAMINATION: GENERAL: This reveals a patient who is morbidly obese. He is a little pale looking, but is not cyanotic, no jaundice. He has oxygen on and is fairly tachypneic. Thyroid gland is difficult to palpate. No finger clubbing was noted. VITAL SIGNS: Pulse was irregular at 76 beats per minute (his heart rate had been slowing down into the 20s and metoprolol was discontinued). NECK: JVP is exceedingly high in sitting position. Ear lobes are bobbing with elevated jugular venous pressure. CARDIAC: Auscultation reveals no obvious murmurs. Heart rate is about 75 beats per minute. EXTREMITIES: He has extreme edema of the legs and the thighs and also buttocks and 2+ sacral edema. There is some erythema of the shins. RESPIRATORY SYSTEM: He is tachypneic. Percussion note revealed dullness in the right lower zone and severely reduced breath sounds in the right lower zone and lots of crackles on the left side. DIAGNOSTIC DATA: The ECG showed atrial fibrillation with complete left bundle-branch block. Monitor had shown heart rates as low as in the 20s, but now it has been in the 70s and 80s. I reviewed the chest x-ray, it shows a large right pleural effusion and moderate pulmonary edema. [place], [place] REPORT OF CONSULTATION NAME: MIR VALIENTE UNIT #: [id number] ROOM: [facility] DOCTOR: JAQUELIN JAMES MD BIRTHDATE: [birth year] An echocardiogram done in November demonstrated normal LV systolic function. LABORATORY DATA: BUN 25, creatinine 1.58, sodium 139, potassium 4.6, serum albumin 2.7. NT-proBNP 1941. Troponin level less than 0.015. Hemoglobin 8 g/dL, MCV 93. IMPRESSION: 1. This patient has very severe diastolic heart failure with a tremendous amount of weight gain and from my clinical evaluation, he probably has about 40-50 pounds of water that needs to be unloaded. 2. Atrial fibrillation with slow ventricular rate. Metoprolol was discontinued that has resulted in a decent heart rate now. 3. Moderate anemia is present and may be contributing to heart failure. 4. Chronic kidney disease. RECOMMENDATIONS: This patient needs higher doses of IV furosemide and fluid restriction. Therefore, he is being put on 1500 mL fluid restriction at 24 hours and IV furosemide is being increased to 80 mg b.i.d. He may require larger doses. I would strongly recommend keeping this patient in the hospital for the next 5 or 6 days as he will require aggressive diuresis. I thank you on behalf of Dr. Strauss for this consult. JAQUELIN JAMES MD CM:CONSTR:REPORT OF CONSULTATION 1100 03/02/182148 interface GINO STRAUSS MD
--- NOTE | ~2018-03-01 | EKG ---
[place], [place] ELECTROCARDIOGRAM REPORT NAME: MIR VALIENTE UNIT #: [id number] ROOM: 532 DOCTOR: EPIPHANY DRAFT REPORT BIRTHDATE: [birth year] [facility] Test Date: 2018-03-01 Test Time: 00:41:30 Pat Name: MIR VALIENTE Department: Room: 532 Gender: M [employer] Dehydrator Operator: Kevin Krause : 1940 Requested By: VICKY IRWIN Order Number: [id number] Reading MD: Ken Strauss MD Measurements Intervals [place] Rate: 57 P: [place]: QRS: -34 QRSD: 150 T: 140 QT: 447 QTc: 436 Interpretive Statements Atrial fibrillation IVCD, consider atypical LBBB Compared to ECG 01/17/2018 16:04:09 No significant changes Electronically Signed On 03-04-2018 4:59:48 PDT by Ken Strauss MD CM:EKGRPT:ELECTROCARDIOGRAM REPORT 0041 0459 VICKY IRWIN MD EPIPHANY DRAFT REPORT VICKY IRWIN MD
--- NOTE | ~2018-03-01 | PR ---
[place], [place] PROGRESS NOTE NAME: MIR VALIENTE [facility] #: [id number] UNIT #: [id number] ROOM: 532 DOCTOR: MARIE FLORES DPM BIRTHDATE: [birth year] DOS: 03/03/2018 SUBJECTIVE: The patient is seen today for followup of chronic right foot wound. He states he is doing well. They have taken about 15 pounds of fluid off the patient and he states he is feeling better. OBJECTIVE: Neurovascular status is unchanged. There is still dependent edema noted bilaterally. Negative Homans sign noted. There is still a wound present lateral fifth metatarsal that is fairly granular. Still some nonviable tissue present. No signs of infection. No purulent drainage or malodor. Ulceration, distal right hallux is almost completely healed. No open wound on the left foot. ASSESSMENT: Diabetic ulcer, right foot, history of osteomyelitis, history of surgeries. PLAN: Evaluation and management. Continue with daily dressing changes. Continue offloading. The patient seems to be doing fairly well at this time. Follow up tomorrow for reevaluation. MARIE FLORES DPM CM:RAJENDRA 1224 0026 MARIE FLORES DPM 03/04/18 0024 interface
--- NOTE | ~2018-03-01 | PROC NOTE ---
[place], [place] PROCEDURE NOTE NAME: MIR VALIENTE UNIT #: [id number] ROOM: 532 DOCTOR: GONZÁLEZ SANCHEZ BIRTHDATE: [birth year] DOS: 03/03/2018 MODIFIED BARIUM SWALLOW LOCATION: [facility], room 532, bed 1. ORDERING PHYSICIAN: Cristino Oro DO RADIOLOGIST: Dr. Miller. BACKGROUND INFORMATION: The patient is a 77-year-old male, who was seen for modified barium swallow. This test was ordered to rule out aspiration as the patient is diagnosed with right lower lobe pneumonia. Further medical history includes CHF, hypertension, CAD, [place], DM and atrial fibrillation. The patient was admitted to the Emergency Department with increased swelling of lower extremities. He currently receives a regular diet and thin liquids. For today's assessment, the patient was alert and able to follow commands. He was cooperative throughout the assessment and denied any swallowing difficulties. Respiratory status was within normal limits. Oral peripheral examination revealed edentulous status. Lingual, labial, and buccal skills were within normal limits in terms of strength, range of motion and coordination. The patient was able to volitionally cough and swallow. METHODS AND MATERIALS USED FOR THE EXAM: The patient was positioned in the lateral plane and the exam was viewed under fluoroscopy. The patient was presented with a variety of consistencies to assess swallowing skills including applesauce mixed with barium presented in half teaspoon amounts, barium-coated cookie and bread taken in bite size pieces and thin liquid barium taken by cup and straw. ORAL PHASE: The patient achieved adequate labial seal around cup, spoon and straw with no anterior loss. Bolus formation was functional with all consistencies. Mastication of soft solid was slow, but functional. The patient stated that due to edentulous status, he always chew thoroughly. Oral transit time was adequate. Tongue to palate contact was adequate. Tongue retraction was within normal limits. Velar functioning was within normal limits with no nasal regurgitation. PHARYNGEAL PHASE: Unremarkable. ESOPHAGEAL PHASE: This phase of the swallow was not formally assessed during this exam. IMPRESSIONS AND RECOMMENDATIONS: Based upon assessment results, this 77-year-old patient presents with swallowing skills that are within functional limits. It is recommended that he remain on present diet with continued use of safe swallow precautions. No followup therapy is warranted at this time. Results and recommendations were shared with the patient and his nurse and they verbalized understanding. [place], [place] PROCEDURE NOTE NAME: MIR VALIENTE UNIT #: [id number] ROOM: 532 DOCTOR: GONZÁLEZ SANCHEZ BIRTHDATE: [birth year] Thank you very much for this referral. Should you have any questions regarding this patient, please contact the speech pathologist at [phone]. GONZÁLEZ SANCHEZ CM:PROCNOTE:PROCEDURE NOTE 1027 2149 GONZÁLEZ SANCHEZ
[~2018-03-01 00:05] MED LIST changes: +ACETAMINOPHEN325 M2 PO; +ARGINAID POWDE1 EACH PO; +DUONEB 3 MG/3 ML3 M1 INH; +GOOD NEIGH100 MG/52 PO; +HYDROCODONE-AC1 EAC1 PO; +LEVOFLOXACIN500 MG PO; +NYSTOP60 GM T; +SANTYL30 GM T
[2018-03-01 00:50] LABS: BASO # 0.1 10*3/uL (0.0-0.1); BASO % 0.8 % (0.0-1.0); EOS # 0.1 10*3/uL (0.0-0.4); EOS % 1.8 % (1.0-4.0); HEMATOCRIT 27.6 % (42.0-52.0); LYMPH # 0.8 10*3/uL (1.3-4.4); LYMPH % 11.2 % (27.0-41.0); MEAN CELL VOLUME 83.6 fl (80.0-94.0); MEAN CORPUSCULAR HGB 24.2 pg (27.0-31.0); MEAN PLATELET VOLUME 9.4 fl (9.6-12.3); MONO # 0.6 10*3/uL (0.1-1.0); MONO % 7.9 % (3.0-9.0); NEUT # 5.7 10*3/uL (2.3-7.9); PLATELET COUNT AUTOMATED 253 10*3/uL (130-400); RED CELL DISTRI WIDTH 17.2 % (0-14.5); WHITE BLOOD COUNT 7.3 10*3/uL (4.8-10.8)
[2018-03-01 01:00] LABS: INTERNATIONAL NORM RATIO 1.1 (2.0-3.5)
[2018-03-01 01:06] LABS: ALBUMIN 2.7 gm/dl (3.1-4.5); ALKALINE PHOSPHATASE 100 U/L (45-117); BUN 25 mg/dl (7-24); CHLORIDE 105 mmol/L (98-107); CREATININE 1.58 mg/dL (0.70-1.30); POTASSIUM 4.6 mmol/L (3.5-5.1); SGOT/AST 10 IU/L (3-35); SGPT/ALT 16 U/L (12-78); SODIUM 139 mmol/L (136-145); TOTAL PROTEIN 6.4 gm/dL (6.4-8.2)
[2018-03-01 01:07] LABS: TROPONIN I < 0.015 ng/ml (<0.045)
[2018-03-01 06:55] LABS: BASO # 0.1 10*3/uL (0.0-0.1); BASO % 0.7 % (0.0-1.0); EOS # 0.2 10*3/uL (0.0-0.4); EOS % 2.3 % (1.0-4.0); HEMATOCRIT 27.7 % (42.0-52.0); LYMPH # 0.8 10*3/uL (1.3-4.4); LYMPH % 11.4 % (27.0-41.0); MEAN CELL VOLUME 84.7 fl (80.0-94.0); MEAN CORPUSCULAR HGB 24.5 pg (27.0-31.0); MEAN CORPUSCULAR HGB CONC 28.9 g/dl (33.0-37.0); MEAN PLATELET VOLUME 9.6 fl (9.6-12.3); MONO # 0.6 10*3/uL (0.1-1.0); MONO % 8.8 % (3.0-9.0); NEUT # 5.5 10*3/uL (2.3-7.9); NEUT % 76.4 % (47.0-73.0); PLATELET COUNT AUTOMATED 257 10*3/uL (130-400); RED BLOOD COUNT 3.27 10*6/uL (4.50-5.90); RED CELL DISTRI WIDTH 17.2 % (0-14.5); WHITE BLOOD COUNT 7.3 10*3/uL (4.8-10.8)
[2018-03-01 07:09] LABS: ALBUMIN 2.7 gm/dl (3.1-4.5); CREATININE 1.52 mg/dL (0.70-1.30); PHOSPHOROUS 4.5 mg/dL (2.5-4.9); POTASSIUM 4.3 mmol/L (3.5-5.1); TOTAL PROTEIN 6.3 gm/dL (6.4-8.2)
[2018-03-01 07:19] LABS: ACT PARTIAL THROMBO TIME 27.8 SECONDS (20.8-31.5); INTERNATIONAL NORM RATIO 1.1 (2.0-3.5)
[2018-03-01 12:33] LABS: BILIRUBIN NEGATIVE (NEGATIVE); BLOOD NEGATIVE (NEGATIVE); CLARITY CLEAR (CLEAR); COLOR YELLOW (YELLOW); GLUCOSE NEGATIVE (NEGATIVE); KETONE NEGATIVE (NEGATIVE); LEUKO ESTERASE NEGATIVE (NEGATIVE); NITRITE NEGATIVE (NEGATIVE); PH 5.5 (5.0-9.0); UROBILINOGEN 0.2 E.U./dl (0.2-1.0)
[2018-03-01 13:00] LABS: RBC 0-2 rbc/hpf (0-2)
[2018-03-01 13:01] LABS: BACTERIA TRACE
[2018-03-02] VITALS: BP 117/53
[2018-03-02 07:06] LABS: BASO # 0.1 10*3/uL (0.0-0.1); BASO % 0.5 % (0.0-1.0); EOS # 0.2 10*3/uL (0.0-0.4); EOS % 2.3 % (1.0-4.0); HEMATOCRIT 29.7 % (42.0-52.0); HEMOGLOBIN 8.5 g/dl (14.0-18.0); LYMPH # 0.6 10*3/uL (1.3-4.4); LYMPH % 6.8 % (27.0-41.0); MEAN CELL VOLUME 84.4 fl (80.0-94.0); MEAN CORPUSCULAR HGB 24.1 pg (27.0-31.0); MEAN CORPUSCULAR HGB CONC 28.6 g/dl (33.0-37.0); MEAN PLATELET VOLUME 9.9 fl (9.6-12.3); MONO # 0.7 10*3/uL (0.1-1.0); MONO % 7.8 % (3.0-9.0); NEUT # 7.6 10*3/uL (2.3-7.9); NEUT % 82.4 % (47.0-73.0); PLATELET COUNT AUTOMATED 298 10*3/uL (130-400); RED BLOOD COUNT 3.52 10*6/uL (4.50-5.90); RED CELL DISTRI WIDTH 17.2 % (0-14.5); WHITE BLOOD COUNT 9.2 10*3/uL (4.8-10.8)
[2018-03-02 07:10] LABS: CREATININE 1.62 mg/dL (0.70-1.30); POTASSIUM 4.5 mmol/L (3.5-5.1)
[2018-03-02 12:00] VITALS: BP 120/78
[2018-03-02 16:00] VITALS: BP 150/88
[2018-03-02 20:00] VITALS: BP 135/52
[2018-03-03] VITALS: BP 105/54
[2018-03-03 06:30] LABS: BASO # 0.1 10*3/uL (0.0-0.1); BASO % 0.6 % (0.0-1.0); EOS # 0.2 10*3/uL (0.0-0.4); EOS % 2.1 % (1.0-4.0); HEMATOCRIT 26.8 % (42.0-52.0); LYMPH # 0.7 10*3/uL (1.3-4.4); LYMPH % 7.8 % (27.0-41.0); MEAN CELL VOLUME 82.5 fl (80.0-94.0); MEAN CORPUSCULAR HGB 24.6 pg (27.0-31.0); MEAN CORPUSCULAR HGB CONC 29.9 g/dl (33.0-37.0); MEAN PLATELET VOLUME 9.9 fl (9.6-12.3); MONO # 0.8 10*3/uL (0.1-1.0); MONO % 8.9 % (3.0-9.0); NEUT # 6.8 10*3/uL (2.3-7.9); NEUT % 80.4 % (47.0-73.0); PLATELET COUNT AUTOMATED 263 10*3/uL (130-400); RED BLOOD COUNT 3.25 10*6/uL (4.50-5.90); RED CELL DISTRI WIDTH 17.2 % (0-14.5); WHITE BLOOD COUNT 8.5 10*3/uL (4.8-10.8)
[2018-03-03 06:42] LABS: CREATININE 1.57 mg/dL (0.70-1.30); POTASSIUM 4.3 mmol/L (3.5-5.1)
[2018-03-03 08:00] VITALS: BP 146/60
[2018-03-03 12:00] VITALS: BP 136/56
[2018-03-03 16:00] VITALS: BP 102/52
[2018-03-03 20:00] VITALS: BP 128/49
[2018-03-04] VITALS: BP 115/48
[2018-03-04 05:50] LABS: BILIRUBIN NEGATIVE (NEGATIVE); BLOOD 3+ (NEGATIVE); CLARITY CLOUDY (CLEAR); COLOR RED (YELLOW); GLUCOSE NEGATIVE (NEGATIVE); KETONE NEGATIVE (NEGATIVE); LEUKO ESTERASE TRACE (NEGATIVE); NITRITE POSITIVE (NEGATIVE); PH 5.5 (5.0-9.0); SPECIFIC GRAVITY 1.015 (1.005-1.030)
[2018-03-04 05:54] LABS: BASO % 0.6 % (0.0-1.0); EOS # 0.2 10*3/uL (0.0-0.4); EOS % 2.6 % (1.0-4.0); HEMOGLOBIN 8.1 g/dl (14.0-18.0); LYMPH # 0.7 10*3/uL (1.3-4.4); LYMPH % 9.9 % (27.0-41.0); MEAN CELL VOLUME 80.4 fl (80.0-94.0); MEAN CORPUSCULAR HGB 24.1 pg (27.0-31.0); MEAN PLATELET VOLUME 9.1 fl (9.6-12.3); MONO # 0.7 10*3/uL (0.1-1.0); MONO % 9.4 % (3.0-9.0); NEUT # 5.4 10*3/uL (2.3-7.9); NEUT % 77.1 % (47.0-73.0); PLATELET COUNT AUTOMATED 244 10*3/uL (130-400); RED BLOOD COUNT 3.36 10*6/uL (4.50-5.90); RED CELL DISTRI WIDTH 17.4 % (0-14.5)
[2018-03-04 05:59] LABS: RBC TNTC rbc/hpf (0-2)
[2018-03-04 06:05] LABS: ALBUMIN 2.7 gm/dl (3.1-4.5); CREATININE 1.55 mg/dL (0.70-1.30); TOTAL PROTEIN 6.6 gm/dL (6.4-8.2)
[2018-03-04 08:00] VITALS: BP 108/50; BP 110/60
[2018-03-04 12:00] VITALS: BP 127/60
[2018-03-04 16:00] VITALS: BP 145/88
[2018-03-04 20:00] VITALS: BP 116/52
[2018-03-05] VITALS: BP 109/54
[2018-03-05 08:00] VITALS: BP 114/58; BP 118/64
[2018-03-05 12:00] VITALS: BP 110/70
[2018-03-05 16:00] VITALS: BP 126/50
[2018-03-05 20:00] VITALS: BP 131/48
[2018-03-06] VITALS: BP 121/50
[2018-03-06 06:12] LABS: BASO # 0.1 10*3/uL (0.0-0.1); BASO % 0.9 % (0.0-1.0); EOS # 0.2 10*3/uL (0.0-0.4); EOS % 3.5 % (1.0-4.0); HEMOGLOBIN 8.2 g/dl (14.0-18.0); LYMPH # 0.9 10*3/uL (1.3-4.4); LYMPH % 12.9 % (27.0-41.0); MEAN CELL VOLUME 79.2 fl (80.0-94.0); MEAN CORPUSCULAR HGB CONC 30.4 g/dl (33.0-37.0); MEAN PLATELET VOLUME 9.8 fl (9.6-12.3); MONO # 0.6 10*3/uL (0.1-1.0); MONO % 9.2 % (3.0-9.0); NEUT % 73.4 % (47.0-73.0); PLATELET COUNT AUTOMATED 252 10*3/uL (130-400); RED BLOOD COUNT 3.41 10*6/uL (4.50-5.90); RED CELL DISTRI WIDTH 17.5 % (0-14.5); WHITE BLOOD COUNT 6.8 10*3/uL (4.8-10.8)
[2018-03-06 06:36] LABS: CREATININE 1.78 mg/dL (0.70-1.30); POTASSIUM 3.5 mmol/L (3.5-5.1)
[2018-03-06 08:00] VITALS: BP 130/62
[2018-03-06 12:00] VITALS: BP 124/50
[2018-03-06 16:00] VITALS: BP 139/50
[2018-03-06 20:00] VITALS: BP 135/71
[2018-03-07] VITALS: BP 112/48
[2018-03-07 06:28] LABS: BASO # 0.1 10*3/uL (0.0-0.1); EOS # 0.3 10*3/uL (0.0-0.4); EOS % 4.5 % (1.0-4.0); HEMATOCRIT 26.8 % (42.0-52.0); HEMOGLOBIN 8.2 g/dl (14.0-18.0); LYMPH % 14.3 % (27.0-41.0); MEAN CELL VOLUME 79.1 fl (80.0-94.0); MEAN CORPUSCULAR HGB 24.2 pg (27.0-31.0); MEAN CORPUSCULAR HGB CONC 30.6 g/dl (33.0-37.0); MEAN PLATELET VOLUME 9.7 fl (9.6-12.3); MONO # 0.6 10*3/uL (0.1-1.0); MONO % 8.6 % (3.0-9.0); NEUT # 5.1 10*3/uL (2.3-7.9); NEUT % 71.5 % (47.0-73.0); PLATELET COUNT AUTOMATED 254 10*3/uL (130-400); RED BLOOD COUNT 3.39 10*6/uL (4.50-5.90); RED CELL DISTRI WIDTH 17.5 % (0-14.5); WHITE BLOOD COUNT 7.2 10*3/uL (4.8-10.8)
[2018-03-07 07:00] LABS: CREATININE 1.74 mg/dL (0.70-1.30); POTASSIUM 3.5 mmol/L (3.5-5.1)
[2018-03-07 08:00] VITALS: BP 124/62
== END 2018-03-07 13:42 | disposition home or self-care (01) | DRG 291 ==
LOC: ED 00:05 → 5E 02:23 → EDHOLD 02:23 → 5E 02:28
PROVIDERS: Emergency Medicine Emergency Medical Services; Family Medicine; Internal Medicine; Student in an Organized Health Care Education/Training Program
PROC: BD1BYZZ Fluoroscopy of Mouth/Oropharynx using Other Contrast (ICD-10-PCS; principal; 2018-03-03)
DX: I13.0 Hypertensive heart and chronic kidney disease with heart failure and stage 1 through stage 4 chronic kidney disease, or unspecified chronic kidney disease (principal); L89.893 Pressure ulcer of other site, stage 3; E43 Unspecified severe protein-calorie malnutrition; J18.9 Pneumonia, unspecified organism; I50.33 Acute on chronic diastolic (congestive) heart failure; L03.116 Cellulitis of left lower limb; Z68.43 Body mass index [BMI] 50.0-59.9, adult; L03.115 Cellulitis of right lower limb; N18.3 Chronic kidney disease, stage 3 (moderate); L97.519 Non-pressure chronic ulcer of other part of right foot with unspecified severity; I25.10 Atherosclerotic heart disease of native coronary artery without angina pectoris; E11.51 Type 2 diabetes mellitus with diabetic peripheral angiopathy without gangrene; I89.0 Lymphedema, not elsewhere classified; E78.5 Hyperlipidemia, unspecified; R00.1 Bradycardia, unspecified; E11.65 Type 2 diabetes mellitus with hyperglycemia; D64.9 Anemia, unspecified; E11.621 Type 2 diabetes mellitus with foot ulcer; I95.9 Hypotension, unspecified; I48.0 Paroxysmal atrial fibrillation; I48.2 Chronic atrial fibrillation; I44.7 Left bundle-branch block, unspecified; Z96.652 Presence of left artificial knee joint; E66.01 Morbid (severe) obesity due to excess calories; E11.22 Type 2 diabetes mellitus with diabetic chronic kidney disease; E55.9 Vitamin D deficiency, unspecified; Z95.5 Presence of coronary angioplasty implant and graft; Z83.79 Family history of other diseases of the digestive system; Z79.82 Long term (current) use of aspirin; Z79.899 Other long term (current) drug therapy; Z79.4 Long term (current) use of insulin; Z89.422 Acquired absence of other left toe(s); Z82.49 Family history of ischemic heart disease and other diseases of the circulatory system; Z83.3 Family history of diabetes mellitus

== ENCOUNTER 2018-04-07 07:35 | Inpatient (IN) | payer MEDICARE, MEDICAID ==
[~2018-04-07] VITALS: Ht 172.7 cm; Wt 140.8 kg
[2018-04-07] VITALS (8 sets, daily range): BP systolic 109–135; BP diastolic 50–68
--- NOTE | ~2018-04-07 | PR ---
[place], [place] PROGRESS NOTE NAME: [id number] UNIT #: [id number] ROOM: 402 DOCTOR: JAQUELIN JAMES MD BIRTHDATE: [birth year] DOS: 04/15/[address] Strauss. SUBJECTIVE: He is sitting in the recliner. He has had no chest pain, breathing difficulty, palpitations, has no leg pain. He has been eating fine. Mood is good. PHYSICAL EXAMINATION: GENERAL: The patient is afebrile. VITAL SIGNS: Pulse is 64 and regular, blood pressure 122/54. NECK: Normal JVP. He has rhonchi, but breath sounds are fairly decent. EXTREMITIES: He has had least moderate degree of edema of the legs and thighs and also of the anterior abdomen, but it is much better than couple of days ago. LABORATORY DATA: Hemoglobin 7.6 g/dL. BUN 31, down from 38. Creatinine 1.49, down from 1.58. IMPRESSION: 1. The patient's diastolic heart failure has improved significantly. 2. Chronic kidney disease, which seems to be improving with diuresis. This is suggestive of cardiorenal syndrome. RECOMMENDATIONS: Continue higher doses of IV diuretic for the time being. JAQUELIN JAMES MD CM:PNTRANS 07 0042 JAQUELIN JAMES MD 04/16/18 0340 interface
--- NOTE | ~2018-04-07 | CON ---
[place], [place] REPORT OF CONSULTATION NAME: MIR VALIENTE UNIT #: [id number] ROOM: 402 DOCTOR: VERONICA SUNGINO BIRTHDATE: [birth year] DOS: 04/08/2018 REASON FOR CONSULTATION: History of chronic diastolic failure. HISTORY OF PRESENT ILLNESS: The patient is a 77-year-old male well known to me with a history of diastolic heart failure. The patient admitted with significant shortness of breath with increased edema of the lower extremity. The patient said that he noticed gradually increasing lower edema and increasing weight gain with the shortness of breath. Echocardiogram done on 12/11/2017 showed an ejection fraction of 50-55%. The patient states that he has been taking his Lasix as prescribed and has not missed any doses. Denies any chest discomfort. Does have significant shortness of breath. No GI or issues. PAST MEDICAL HISTORY: Significant for atrial fibrillation, chronic kidney disease, GFR is 30-59, combined systolic, diastolic heart failure, left bundle branch block, hypertension, lymphedema and diabetes mellitus. PAST SURGICAL HISTORY: Amputated toe, history of coronary stent placement. SOCIAL HISTORY: Denies any alcohol abuse. Denies any tobacco abuse. FAMILY HISTORY: Positive for coronary artery disease. ALLERGIES: None. MEDICATIONS: He is on apixaban 2.5 b.i.d., aspirin, Lasix 40 mg daily and metoprolol 12.5 b.i.d. REVIEW OF SYSTEMS: CONSTITUTIONAL: No fever, no chills. HEENT: No visual disturbances, hearing problems. CARDIOVASCULAR: As per HPI. RESPIRATORY SYMPTOMS: Report shortness of breath. GASTROINTESTINAL: No nausea, no vomiting. GENITOURINARY: No dysuria. NEUROLOGICAL: Stable. ENDOCRINE: Intact. PHYSICAL EXAMINATION: VITAL SIGNS: Blood pressure is 130/80 and heart rate is 80. HEENT: Unremarkable. NECK: Elevated jugular venous distention. LUNGS: Diminished air entry. HEART: Heart sounds are regular. Bilateral lower extremity edema. NEUROLOGIC: Stable. LABORATORY DATA: Sodium 136, potassium 5.7, BUN 74 and creatinine 2.9. Liver functions are normal. Troponins have been negative. Hemoglobin 8.1 and hematocrit 26.8. Chest x-ray shows increased pulmonary vascular congestion, atelectasis. [place], [place] REPORT OF CONSULTATION NAME: MIR VALIENTE UNIT #: [id number] ROOM: 402 DOCTOR: VERONICA SUN,GINO BIRTHDATE: [birth year] IMPRESSION: Acute on chronic diastolic heart failure, acute renal failure, hyperkalemia, atrial fibrillation and chronic hypertension. RECOMMENDATIONS: Continue with the present care. Continue strict I's and O's and continue IV diuretics. Monitor the renal function very closely. Continue the beta blockers. Monitor the heart rate also very closely. Follow the CHF pathway and I will follow up. GINO MARTIN MD CM:CONSTR:REPORT OF CONSULTATION 9 04/08/18 0742 interface
--- NOTE | ~2018-04-07 | PN ---
[place], [place] PROGRESS NOTE NAME: MIR VALIENTE UNIT #: [id number] ROOM: 402 DOCTOR: IMELDA LEWIS DPM BIRTHDATE: [birth year] DATE: 04/09/18 ADDENDUM TO RESIDENT REPORT: I rounded with the resident and concur with their diagnosis and treatment as documented by the resident. IMELDA LEWIS DPM CM:PNTRANS [id number] 160 IMELDA LEWIS DPM 05/07/18 160 MARYSOL PACE MIS.LLR
--- NOTE | ~2018-04-07 | PR ---
[place], [place] PROGRESS NOTE NAME: MIR VALIENTE [facility] #: [id number] UNIT #: [id number] ROOM: 402 DOCTOR: SANDRA BARAJASMARIE BIRTHDATE: [birth year] DOS: 04/11/2018 SUBJECTIVE: This patient is seen at bedside. The patient has had a chronic wound on his right lateral foot since October. He has a history of surgery. He was admitted with CHF, but his wound does have bone exposed at the right lateral foot. OBJECTIVE: Dependent edema is noted bilaterally. Loss of protective sensation is seen bilaterally. Pedal pulses are barely palpable bilaterally. The lateral right foot wound is noted. There is bone exposed at the distal portion of the wound as well as proximal fifth metatarsal area. There is bone exposed in both the sites. There is no purulent drainage. There is some localized erythema about 2-3 cm around the wound dorsally. No fluctuance, no signs of abscess. 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 PLAN: I discussed with the patient that he has exposed bone noted within the wound and that we are going to do bedside debridement of the bone. He is agreeable to this. The area was prepped and draped was placed underneath the foot. Next, using a #11 blade as well as a pickup, the prominent and exposed bone was removed both proximal and distal on the area of the fifth metatarsal, right lateral foot. There was noted to be adequate bleeding with removal. The area was inspected and there were no signs of abscess or fluctuance; however, there was an area proximal to the wound about 1-2 cm if there was a little tracking, so this was incised with the 11 blade. Bone cultures were then taken and will be sent for Gram stain culture and sensitivity, both aerobic and anaerobic. The bone will be sent to pathology for evaluation as well. The area was flushed with copious amounts of saline. Packing was applied to the area as well as 4 x 4s, ABD and Kerlix for a bandage. We will continue with daily dressing changes, continue with the IV antibiotics. We will see what the pathology and cultures show. Again at this time, sharp excisional debridement of the right foot ulcer was done down to the level of bone at this time. The patient will be followed up over the weekend, continue to follow the foot while in the hospital and follow him up once he is discharged as well. The patient tolerated this procedure well with no complications. [place], [place] PROGRESS NOTE NAME: MIR VALIENTE UNIT #: [id number] ROOM: [facility] DOCTOR: MARIE FLORES DPM BIRTHDATE: [birth year] MARIE FLORES DPM CM:PNTRANS 120 46 MARIE FLORES DPM 04/11/182146 interface
--- NOTE | ~2018-04-07 | PR ---
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 He also has a wound of his right lateral foot. He was evaluated and treated with PROSPERY1Earl. A full thickness sharp excisional debridement was performed on the right fifth metatarsal base area what was remaining from the previous surgery and Unna boot compression therapy was applied bilaterally. IMELDA LEWIS DPM CM:RAJENDRA [id number] IMELDA LEWIS DPM 04/10/18 1150 interface
--- NOTE | ~2018-04-07 | EKG ---
[place], [place] ELECTROCARDIOGRAM REPORT NAME: MIR VALIENTE UNIT #: [id number] ROOM: 402 DOCTOR: KOMAL DRAFT REPORT BIRTHDATE: [birth year] [facility] Test Date: 2018-04-07 Test Time: 08:32:03 Pat Name: MIR VALIENTE Department: Room: 402 Gender: M Accounts Executive: : 1940 Requested By: INNA PATEL Order Number: [id number] Reading MD: Ken Strauss MD Measurements Intervals [place] Rate: 81 P: 0 NH: 188 QRS: -38 QRSD: 163 T: 121 QT: 421 QTc: 489 Interpretive Statements atrial fibrillation Nonspecific IVCD with LAD Baseline wander in lead(s) V1 Compared to ECG 03/01/2018 17:07:39 Electronically Signed On 04-08-2018 4:09:23 PDT by Ken Strauss MD CM:EKGRPT:ELECTROCARDIOGRAM REPORT [id number] INNA JONES DRAFT REPORT INNA PATEL DO
--- NOTE | ~2018-04-07 | PR ---
[place], [place] PROGRESS NOTE [id number] UNIT #: [id number] ROOM: 402 DOCTOR: JAQUELIN JAMES MD BIRTHDATE: [birth year] DOS: 04/11/2018 DICTATED FOR: Dr. Garza. SUBJECTIVE: This patient has ulcers of his feet and extreme edema with erythema. He has had diastolic heart failure and that has not been treated adequately. He has been in the hospital for quite a while and has been diuresing and in fact renal function is improved significantly. The patient is on oral furosemide 40 mg b.i.d. OBJECTIVE: GENERAL: He has gone slow and sluggish. Speech is not clear. He is mildly tachypneic. Complexion is pale. VITAL SIGNS: Pulse is 70, blood pressure 111/61. NECK: JVP currently is normal. LUNGS: He has some crackles 1+ in both lungs. EXTREMITIES: Had severe edema below the knees and 2+ edema in the thighs and there is some edema in the buttocks as well. IMPRESSION: This patient has significant heart failure that seems to be predominantly right sided. He has been diuresed and renal function has been getting better. I think IV furosemide will be used in this gentleman in reasonable doses to reduce severe edema of the lower extremities and I think this would lead to healing of ulcers, otherwise, it will be a struggle. JAQUELIN JAMES MD CM:PNTRANS [id number] JAQUELIN JAMES MD 04/12/18 1226 interface
--- NOTE | ~2018-04-07 | PR ---
[place], [place] PROGRESS NOTE [id number] UNIT #: [id number] ROOM: 402 DOCTOR: JAQUELIN JAMES MD BIRTHDATE: [birth year] DOS: This is for Dr. Chaidez. SUBJECTIVE: This patient has been in the hospital for several days and has been diuresing and has lost 23 pounds in weight, which is really water loss. He is not short of breath. He does not complain of any chest pain or palpitations. His appetite is fine. He is not short of breath. PHYSICAL EXAMINATION: GENERAL: This is a patient who is alert, sitting in a recliner. VITAL SIGNS: Pulse is 70, blood pressure 129/62. NECK: JVP is still very high. LUNGS: Breath sounds are diminished, more so on the right side with crackles. ABDOMEN: Edema is still severe. His anterior part of the abdomen is edematous, so is his scrotum. The patient's renal function seemed to be holding up very decently despite diuresis, it has not gotten worse. RECOMMENDATIONS: This patient probably has another 25-30 pounds of water that needs to be removed. Renal function is essentially unchanged since admission despite aggressive diuresis. I would strongly recommend increasing dose of furosemide to 80 mg t.i.d. and if that does not diurese adequately add metolazone. No other recommendations. JAQUELIN JAMES MD CM:PNTRANS 180 8 JAQUELIN JAMES MD 04/15/18218 interface
[2018-04-07 08:11] LABS: BASO % 0.4 % (0.0-1.0); EOS # 0.1 10*3/uL (0.0-0.4); EOS % 0.8 % (1.0-4.0); HEMATOCRIT 26.8 % (42.0-52.0); HEMOGLOBIN 8.1 g/dl (14.0-18.0); LYMPH # 0.6 10*3/uL (1.3-4.4); LYMPH % 7.7 % (27.0-41.0); MEAN CELL VOLUME 77.2 fl (80.0-94.0); MEAN CORPUSCULAR HGB 23.3 pg (27.0-31.0); MEAN CORPUSCULAR HGB CONC 30.2 g/dl (33.0-37.0); MEAN PLATELET VOLUME 9.6 fl (9.6-12.3); MONO # 0.7 10*3/uL (0.1-1.0); MONO % 9.5 % (3.0-9.0); NEUT # 6.2 10*3/uL (2.3-7.9); NEUT % 81.3 % (47.0-73.0); PLATELET COUNT AUTOMATED 257 10*3/uL (130-400); RED BLOOD COUNT 3.47 10*6/uL (4.50-5.90); RED CELL DISTRI WIDTH 18.6 % (0-14.5); WHITE BLOOD COUNT 7.6 10*3/uL (4.8-10.8)
[2018-04-07 08:29] LABS: ALBUMIN 3.1 gm/dl (3.1-4.5); ALKALINE PHOSPHATASE 102 U/L (45-117); BUN 74 mg/dl (7-24); CHLORIDE 104 mmol/L (98-107); CREATININE 2.97 mg/dL (0.70-1.30); POTASSIUM 5.7 mmol/L (3.5-5.1); SGOT/AST 12 IU/L (3-35); SGPT/ALT 20 U/L (12-78); SODIUM 136 mmol/L (136-145); TOTAL PROTEIN 7.7 gm/dL (6.4-8.2)
[2018-04-07 08:30] LABS: TROPONIN I < 0.015 ng/ml (<0.045)
[2018-04-07 14:29] LABS: BUN 77 mg/dl (7-24); CHLORIDE 102 mmol/L (98-107); CREATININE 2.83 mg/dL (0.70-1.30); POTASSIUM 5.3 mmol/L (3.5-5.1); SODIUM 136 mmol/L (136-145)
[2018-04-07 14:30] LABS: TROPONIN I < 0.015 ng/ml (<0.045)
[2018-04-08] VITALS: BP 109/66
[2018-04-08 06:27] LABS: BASO % 0.7 % (0.0-1.0); EOS # 0.1 10*3/uL (0.0-0.4); EOS % 1.9 % (1.0-4.0); HEMOGLOBIN 7.9 g/dl (14.0-18.0); LYMPH # 0.6 10*3/uL (1.3-4.4); LYMPH % 10.6 % (27.0-41.0); MEAN CELL VOLUME 77.8 fl (80.0-94.0); MEAN CORPUSCULAR HGB 22.8 pg (27.0-31.0); MEAN CORPUSCULAR HGB CONC 29.3 g/dl (33.0-37.0); MEAN PLATELET VOLUME 9.9 fl (9.6-12.3); MONO # 0.6 10*3/uL (0.1-1.0); MONO % 10.3 % (3.0-9.0); NEUT # 4.4 10*3/uL (2.3-7.9); NEUT % 76.2 % (47.0-73.0); PLATELET COUNT AUTOMATED 263 10*3/uL (130-400); RED BLOOD COUNT 3.47 10*6/uL (4.50-5.90); RED CELL DISTRI WIDTH 18.7 % (0-14.5); WHITE BLOOD COUNT 5.8 10*3/uL (4.8-10.8)
[2018-04-08 06:52] LABS: ACT PARTIAL THROMBO TIME 29.5 SECONDS (20.8-31.5); INTERNATIONAL NORM RATIO 1.2 (2.0-3.5)
[2018-04-08 06:54] LABS: ALBUMIN 3.1 gm/dl (3.1-4.5); CREATININE 2.52 mg/dL (0.70-1.30); POTASSIUM 4.8 mmol/L (3.5-5.1); TOTAL PROTEIN 7.3 gm/dL (6.4-8.2)
[2018-04-08 07:00] LABS: FREE T4 0.99 ng/dl (0.76-1.46); THYROID STIM HORMONE (HS) 3.55 uIU/ml (0.358-4.75)
[2018-04-08 07:13] LABS: VITAMIN D, 25-HYDROXY 34.2 ng/mL (30-100)
[2018-04-08 08:00] VITALS: BP 112/60
[2018-04-08] MEDS ORDERED: METOPROLOL SUCC25 M2 PO (09:20)
[2018-04-08 12:00] VITALS: BP 123/71
[2018-04-08 16:00] VITALS: BP 130/66
[2018-04-08 20:00] VITALS: BP 145/88
[2018-04-09] VITALS: BP 150/86
[2018-04-09 08:12] LABS: BASO # 0.1 10*3/uL (0.0-0.1); BASO % 0.6 % (0.0-1.0); EOS # 0.2 10*3/uL (0.0-0.4); EOS % 2.6 % (1.0-4.0); HEMATOCRIT 27.2 % (42.0-52.0); LYMPH # 0.9 10*3/uL (1.3-4.4); MEAN CELL VOLUME 78.6 fl (80.0-94.0); MEAN CORPUSCULAR HGB 23.1 pg (27.0-31.0); MEAN CORPUSCULAR HGB CONC 29.4 g/dl (33.0-37.0); MEAN PLATELET VOLUME 9.5 fl (9.6-12.3); MONO % 12.4 % (3.0-9.0); NEUT # 5.7 10*3/uL (2.3-7.9); PLATELET COUNT AUTOMATED 285 10*3/uL (130-400); RED BLOOD COUNT 3.46 10*6/uL (4.50-5.90); RED CELL DISTRI WIDTH 18.7 % (0-14.5); WHITE BLOOD COUNT 7.7 10*3/uL (4.8-10.8)
[2018-04-09 08:37] LABS: POTASSIUM 4.4 mmol/L (3.5-5.1)
[2018-04-09 08:38] LABS: CREATININE 2.11 mg/dL (0.70-1.30)
[2018-04-09 16:00] VITALS: BP 122/85
[2018-04-09 20:00] VITALS: BP 130/60
[2018-04-10] VITALS: BP 101/58; BP 110/60
[2018-04-10 06:55] LABS: BASO % 0.6 % (0.0-1.0); EOS # 0.2 10*3/uL (0.0-0.4); EOS % 2.2 % (1.0-4.0); HEMATOCRIT 27.2 % (42.0-52.0); LYMPH # 0.7 10*3/uL (1.3-4.4); MEAN CELL VOLUME 79.3 fl (80.0-94.0); MEAN CORPUSCULAR HGB 23.3 pg (27.0-31.0); MEAN CORPUSCULAR HGB CONC 29.4 g/dl (33.0-37.0); MEAN PLATELET VOLUME 9.8 fl (9.6-12.3); MONO # 0.8 10*3/uL (0.1-1.0); MONO % 11.8 % (3.0-9.0); NEUT # 5.1 10*3/uL (2.3-7.9); NEUT % 75.1 % (47.0-73.0); PLATELET COUNT AUTOMATED 279 10*3/uL (130-400); RED BLOOD COUNT 3.43 10*6/uL (4.50-5.90); RED CELL DISTRI WIDTH 18.9 % (0-14.5); WHITE BLOOD COUNT 6.8 10*3/uL (4.8-10.8)
[2018-04-10 07:06] LABS: CREATININE 1.74 mg/dL (0.70-1.30); POTASSIUM 4.6 mmol/L (3.5-5.1)
[2018-04-10 08:00] VITALS: BP 143/80
[2018-04-10 13:00] VITALS: BP 121/78
[2018-04-10 15:48] VITALS: BP 125/65
[2018-04-10 20:00] VITALS: BP 86/61
[2018-04-11] VITALS: BP 113/51; BP 152/54
[2018-04-11 06:08] LABS: CREATININE 1.62 mg/dL (0.70-1.30)
[2018-04-11 06:14] LABS: BASO # 0.1 10*3/uL (0.0-0.1); BASO % 0.7 % (0.0-1.0); EOS # 0.1 10*3/uL (0.0-0.4); EOS % 1.9 % (1.0-4.0); HEMATOCRIT 26.3 % (42.0-52.0); HEMOGLOBIN 7.8 g/dl (14.0-18.0); LYMPH # 0.6 10*3/uL (1.3-4.4); LYMPH % 8.2 % (27.0-41.0); MEAN CELL VOLUME 78.3 fl (80.0-94.0); MEAN CORPUSCULAR HGB 23.2 pg (27.0-31.0); MEAN CORPUSCULAR HGB CONC 29.7 g/dl (33.0-37.0); MEAN PLATELET VOLUME 9.8 fl (9.6-12.3); MONO # 0.7 10*3/uL (0.1-1.0); MONO % 9.9 % (3.0-9.0); NEUT # 5.4 10*3/uL (2.3-7.9); NEUT % 79.2 % (47.0-73.0); PLATELET COUNT AUTOMATED 276 10*3/uL (130-400); RED BLOOD COUNT 3.36 10*6/uL (4.50-5.90); RED CELL DISTRI WIDTH 18.9 % (0-14.5); WHITE BLOOD COUNT 6.9 10*3/uL (4.8-10.8)
[2018-04-11 08:00] VITALS: BP 115/72
[2018-04-11 12:00] VITALS: BP 117/47
[2018-04-11 16:00] VITALS: BP 111/61
[2018-04-11 20:00] VITALS: BP 130/71
[2018-04-12] VITALS (9 sets, daily range): BP systolic 120–147; BP diastolic 53–83
[2018-04-12 01:05] LABS: BILIRUBIN NEGATIVE (NEGATIVE); BLOOD NEGATIVE (NEGATIVE); CLARITY CLEAR (CLEAR); COLOR YELLOW (YELLOW); GLUCOSE TRACE (NEGATIVE); KETONE NEGATIVE (NEGATIVE); LEUKO ESTERASE NEGATIVE (NEGATIVE); NITRITE NEGATIVE (NEGATIVE); PH 5.5 (5.0-9.0); UROBILINOGEN 0.2 E.U./dl (0.2-1.0)
[2018-04-12 01:24] LABS: RBC 0-2 rbc/hpf (0-2)
[2018-04-12 06:04] LABS: BASO # 0.1 10*3/uL (0.0-0.1); BASO % 0.8 % (0.0-1.0); EOS # 0.2 10*3/uL (0.0-0.4); EOS % 2.5 % (1.0-4.0); HEMATOCRIT 23.8 % (42.0-52.0); HEMOGLOBIN 7.2 g/dl (14.0-18.0); LYMPH # 0.6 10*3/uL (1.3-4.4); LYMPH % 8.5 % (27.0-41.0); MEAN CELL VOLUME 77.5 fl (80.0-94.0); MEAN CORPUSCULAR HGB 23.5 pg (27.0-31.0); MEAN CORPUSCULAR HGB CONC 30.3 g/dl (33.0-37.0); MEAN PLATELET VOLUME 9.8 fl (9.6-12.3); MONO # 0.8 10*3/uL (0.1-1.0); MONO % 11.9 % (3.0-9.0); NEUT # 4.9 10*3/uL (2.3-7.9); PLATELET COUNT AUTOMATED 249 10*3/uL (130-400); RED BLOOD COUNT 3.07 10*6/uL (4.50-5.90); RED CELL DISTRI WIDTH 19.1 % (0-14.5); WHITE BLOOD COUNT 6.5 10*3/uL (4.8-10.8)
[2018-04-12 06:21] LABS: CREATININE 1.53 mg/dL (0.70-1.30); POTASSIUM 3.9 mmol/L (3.5-5.1)
[2018-04-13] VITALS: BP 145/66
[2018-04-13 01:00] VITALS: BP 124/58
[2018-04-13 05:53] LABS: BASO # 0.1 10*3/uL (0.0-0.1); BASO % 0.8 % (0.0-1.0); EOS # 0.2 10*3/uL (0.0-0.4); EOS % 3.8 % (1.0-4.0); HEMATOCRIT 25.9 % (42.0-52.0); HEMOGLOBIN 7.7 g/dl (14.0-18.0); LYMPH # 0.8 10*3/uL (1.3-4.4); LYMPH % 11.9 % (27.0-41.0); MEAN CELL VOLUME 79.4 fl (80.0-94.0); MEAN CORPUSCULAR HGB 23.6 pg (27.0-31.0); MEAN CORPUSCULAR HGB CONC 29.7 g/dl (33.0-37.0); MEAN PLATELET VOLUME 9.5 fl (9.6-12.3); MONO # 0.8 10*3/uL (0.1-1.0); MONO % 11.9 % (3.0-9.0); NEUT # 4.5 10*3/uL (2.3-7.9); NEUT % 71.3 % (47.0-73.0); PLATELET COUNT AUTOMATED 247 10*3/uL (130-400); RED BLOOD COUNT 3.26 10*6/uL (4.50-5.90); RED CELL DISTRI WIDTH 18.7 % (0-14.5); WHITE BLOOD COUNT 6.4 10*3/uL (4.8-10.8)
[2018-04-13 06:05] LABS: CREATININE 1.54 mg/dL (0.70-1.30); POTASSIUM 3.8 mmol/L (3.5-5.1)
[2018-04-13 08:00] VITALS: BP 119/76
[2018-04-13 12:00] VITALS: BP 121/64
[2018-04-13 12:05] LABS: ACID FAST SPEC PROCESSING Tissue Grinding (.)
[2018-04-13 16:00] VITALS: BP 161/69
[2018-04-13 20:00] VITALS: BP 105/35
[2018-04-14] VITALS: BP 136/58
[2018-04-14 07:11] LABS: BASO # 0.1 10*3/uL (0.0-0.1); EOS # 0.2 10*3/uL (0.0-0.4); EOS % 3.3 % (1.0-4.0); HEMATOCRIT 24.8 % (42.0-52.0); HEMOGLOBIN 7.7 g/dl (14.0-18.0); LYMPH # 0.6 10*3/uL (1.3-4.4); LYMPH % 9.2 % (27.0-41.0); MEAN CORPUSCULAR HGB 24.2 pg (27.0-31.0); MEAN PLATELET VOLUME 9.2 fl (9.6-12.3); MONO # 0.8 10*3/uL (0.1-1.0); MONO % 12.1 % (3.0-9.0); NEUT % 74.1 % (47.0-73.0); PLATELET COUNT AUTOMATED 218 10*3/uL (130-400); RED BLOOD COUNT 3.18 10*6/uL (4.50-5.90); RED CELL DISTRI WIDTH 18.9 % (0-14.5); WHITE BLOOD COUNT 6.7 10*3/uL (4.8-10.8)
[2018-04-14 07:30] LABS: ALBUMIN 2.8 gm/dl (3.1-4.5); POTASSIUM 3.3 mmol/L (3.5-5.1)
[2018-04-14 07:32] LABS: CREATININE 1.58 mg/dL (0.70-1.30); TOTAL PROTEIN 7.1 gm/dL (6.4-8.2)
[2018-04-14 08:00] VITALS: BP 138/67
[2018-04-14 12:00] VITALS: BP 144/73
[2018-04-14 16:00] VITALS: BP 129/62
[2018-04-14 20:00] VITALS: BP 117/52
[2018-04-15] VITALS: BP 138/69
[2018-04-15 06:47] LABS: BASO # 0.1 10*3/uL (0.0-0.1); BASO % 0.7 % (0.0-1.0); EOS # 0.2 10*3/uL (0.0-0.4); HEMATOCRIT 25.5 % (42.0-52.0); HEMOGLOBIN 7.6 g/dl (14.0-18.0); LYMPH # 0.8 10*3/uL (1.3-4.4); MEAN CORPUSCULAR HGB 23.2 pg (27.0-31.0); MEAN CORPUSCULAR HGB CONC 29.8 g/dl (33.0-37.0); MEAN PLATELET VOLUME 9.3 fl (9.6-12.3); MONO # 0.9 10*3/uL (0.1-1.0); MONO % 12.6 % (3.0-9.0); NEUT # 5.3 10*3/uL (2.3-7.9); NEUT % 72.4 % (47.0-73.0); PLATELET COUNT AUTOMATED 218 10*3/uL (130-400); RED BLOOD COUNT 3.27 10*6/uL (4.50-5.90); RED CELL DISTRI WIDTH 19.1 % (0-14.5); WHITE BLOOD COUNT 7.3 10*3/uL (4.8-10.8)
[2018-04-15 07:05] LABS: CREATININE 1.49 mg/dL (0.70-1.30); POTASSIUM 3.2 mmol/L (3.5-5.1)
[2018-04-15 08:00] VITALS: BP 126/78
[2018-04-15 12:00] VITALS: BP 149/62
[2018-04-15 16:00] VITALS: BP 122/54
[2018-04-15 20:00] VITALS: BP 114/52
[2018-04-16] VITALS: BP 120/53
[2018-04-16 08:00] VITALS: BP 119/50
[2018-04-16 08:07] LABS: BASO # 0.1 10*3/uL (0.0-0.1); BASO % 0.6 % (0.0-1.0); EOS # 0.2 10*3/uL (0.0-0.4); EOS % 2.5 % (1.0-4.0); HEMATOCRIT 28.4 % (42.0-52.0); HEMOGLOBIN 8.1 g/dl (14.0-18.0); LYMPH # 0.5 10*3/uL (1.3-4.4); LYMPH % 6.5 % (27.0-41.0); MEAN CELL VOLUME 80.7 fl (80.0-94.0); MEAN CORPUSCULAR HGB CONC 28.5 g/dl (33.0-37.0); MEAN PLATELET VOLUME 9.6 fl (9.6-12.3); MONO # 0.8 10*3/uL (0.1-1.0); MONO % 9.7 % (3.0-9.0); NEUT # 6.2 10*3/uL (2.3-7.9); NEUT % 80.2 % (47.0-73.0); PLATELET COUNT AUTOMATED 222 10*3/uL (130-400); RED BLOOD COUNT 3.52 10*6/uL (4.50-5.90); RED CELL DISTRI WIDTH 19.6 % (0-14.5); WHITE BLOOD COUNT 7.7 10*3/uL (4.8-10.8)
[2018-04-16 08:25] LABS: CREATININE 1.56 mg/dL (0.70-1.30); POTASSIUM 4.1 mmol/L (3.5-5.1)
[2018-04-16 12:00] VITALS: BP 150/63
[2018-04-16 16:00] VITALS: BP 112/84
[2018-04-16 20:00] VITALS: BP 128/54
[2018-04-17] VITALS: BP 152/74
[2018-04-17 06:53] LABS: BASO # 0.1 10*3/uL (0.0-0.1); BASO % 0.8 % (0.0-1.0); EOS % 0.3 % (1.0-4.0); HEMATOCRIT 28.5 % (42.0-52.0); HEMOGLOBIN 8.5 g/dl (14.0-18.0); LYMPH # 0.5 10*3/uL (1.3-4.4); LYMPH % 6.8 % (27.0-41.0); MEAN CELL VOLUME 78.3 fl (80.0-94.0); MEAN CORPUSCULAR HGB 23.4 pg (27.0-31.0); MEAN CORPUSCULAR HGB CONC 29.8 g/dl (33.0-37.0); MEAN PLATELET VOLUME 9.8 fl (9.6-12.3); MONO # 0.5 10*3/uL (0.1-1.0); MONO % 6.8 % (3.0-9.0); NEUT # 5.6 10*3/uL (2.3-7.9); PLATELET COUNT AUTOMATED 196 10*3/uL (130-400); RED BLOOD COUNT 3.64 10*6/uL (4.50-5.90); RED CELL DISTRI WIDTH 19.8 % (0-14.5); WHITE BLOOD COUNT 6.6 10*3/uL (4.8-10.8)
[2018-04-17 07:32] LABS: CREATININE 1.81 mg/dL (0.70-1.30); POTASSIUM 3.8 mmol/L (3.5-5.1)
[2018-04-17 08:00] VITALS: BP 142/54
[2018-04-17 12:00] VITALS: BP 153/61
[2018-04-17] MEDS ORDERED: LASIX40 MG PO (15:22)
[2018-04-17 16:00] VITALS: BP 159/81
[2018-05-26 15:05] LABS: ACID FAST CULTURE Negative (.)
== END 2018-04-17 18:30 | DRG 628 ==
LOC: ED 07:35 → 4E 09:12 → EDHOLD 09:12 → 4E 09:40
PROVIDERS: Emergency Medicine; Internal Medicine; Podiatrist Primary Podiatric Medicine; Student in an Organized Health Care Education/Training Program
PROC: 02HV33Z Insertion of Infusion Device into Superior Vena Cava, Percutaneous Approach (ICD-10-PCS; principal; 2018-04-10)
PROC: 0QBN0ZZ Excision of Right Metatarsal, Open Approach (ICD-10-PCS; 2018-04-11)
PROC: 30233N1 Transfusion of Nonautologous Red Blood Cells into Peripheral Vein, Percutaneous Approach (ICD-10-PCS; 2018-04-12)
DX: E11.621 Type 2 diabetes mellitus with foot ulcer (principal); L89.893 Pressure ulcer of other site, stage 3; I50.33 Acute on chronic diastolic (congestive) heart failure; I13.0 Hypertensive heart and chronic kidney disease with heart failure and stage 1 through stage 4 chronic kidney disease, or unspecified chronic kidney disease; E44.0 Moderate protein-calorie malnutrition; Z68.43 Body mass index [BMI] 50.0-59.9, adult; L97.518 Non-pressure chronic ulcer of other part of right foot with other specified severity; M86.8X7 Other osteomyelitis, ankle and foot; N17.0 Acute kidney failure with tubular necrosis; E11.69 Type 2 diabetes mellitus with other specified complication; L89.891 Pressure ulcer of other site, stage 1; E87.5 Hyperkalemia; E55.9 Vitamin D deficiency, unspecified; L97.519 Non-pressure chronic ulcer of other part of right foot with unspecified severity; I87.2 Venous insufficiency (chronic) (peripheral); I89.0 Lymphedema, not elsewhere classified; D50.9 Iron deficiency anemia, unspecified; R00.1 Bradycardia, unspecified; E11.22 Type 2 diabetes mellitus with diabetic chronic kidney disease; E78.5 Hyperlipidemia, unspecified; I44.7 Left bundle-branch block, unspecified; N18.3 Chronic kidney disease, stage 3 (moderate); E66.01 Morbid (severe) obesity due to excess calories; I48.2 Chronic atrial fibrillation; I25.10 Atherosclerotic heart disease of native coronary artery without angina pectoris; E11.51 Type 2 diabetes mellitus with diabetic peripheral angiopathy without gangrene; Z79.4 Long term (current) use of insulin; Z95.5 Presence of coronary angioplasty implant and graft; Z87.01 Personal history of pneumonia (recurrent); Z82.49 Family history of ischemic heart disease and other diseases of the circulatory system; Z83.3 Family history of diabetes mellitus; Z83.79 Family history of other diseases of the digestive system; Z79.899 Other long term (current) drug therapy; Z79.82 Long term (current) use of aspirin; Z89.422 Acquired absence of other left toe(s)

== ENCOUNTER 2019-08-13 15:26 | Inpatient (IN) | payer MEDICARE ==
[~2019-08-13] VITALS: Ht 175.2 cm; Wt 136.1 kg
[~2019-08-13 15:26] MED LIST changes: +AMMONIUM LACTA385 GM T; +AQUAPHOR396 GM TP; +CIPRO500 MG PO; +COLACE100 MG PO; +CRESTOR10 M1 PO; +ELIQUIS5 M1 PO; +ERTAPENEM1 GM IV; +IRON325 M1 PO; +LANTUS SOL100 UNIT/1 SQ; +MELATONIN5 M1 PO; +METOPROLOL SUCC50 M1 PO; +MIRALAX119 GM PO; +Nystatin Cream15 GM T; +OMNICEF300 MG PO; +ROBITUSSIN COU1 EACH PO; +VANCOMYCIN2 GM/500 M IV; +VISINE 15 ML15 ML OU; +ZANTAC 300300 MG PO
[2019-08-13 15:40] VITALS: BP 123/59
[2019-08-13 17:39] LABS: BASO # 0.1 10*3/uL (0.0-0.1); BASO % 0.7 % (0.0-1.0); EOS # 0.3 10*3/uL (0.0-0.4); EOS % 3.8 % (1.0-4.0); HEMATOCRIT 38.5 % (42.0-52.0); HEMOGLOBIN 12.1 g/dl (14.0-18.0); LYMPH # 1.4 10*3/uL (1.3-4.4); LYMPH % 16.5 % (27.0-41.0); MEAN CORPUSCULAR HGB 28.3 pg (27.0-31.0); MEAN CORPUSCULAR HGB CONC 31.4 g/dl (33.0-37.0); MEAN PLATELET VOLUME 9.6 fl (9.6-12.3); MONO # 0.7 10*3/uL (0.1-1.0); MONO % 8.6 % (3.0-9.0); NEUT # 6.1 10*3/uL (2.3-7.9); NEUT % 70.2 % (47.0-73.0); PLATELET COUNT AUTOMATED 273 10*3/uL (130-400); RED BLOOD COUNT 4.28 10*6/uL (4.50-5.90); RED CELL DISTRI WIDTH 13.9 % (0-14.5); WHITE BLOOD COUNT 8.6 10*3/uL (4.8-10.8)
[2019-08-13 17:50] LABS: INTERNATIONAL NORM RATIO 1.1 (2.0-3.5)
[2019-08-13 18:00] LABS: ALBUMIN 3.2 gm/dl (3.1-4.5); ALKALINE PHOSPHATASE 126 U/L (45-117); BUN 25 mg/dl (7-24); CHLORIDE 101 mmol/L (98-107); CREATININE 1.37 mg/dL (0.70-1.30); LIPASE 90 U/L (73-393); SGOT/AST 20 IU/L (3-35); SGPT/ALT 33 U/L (12-78); SODIUM 138 mmol/L (136-145); TOTAL PROTEIN 8.9 gm/dL (6.4-8.2); TROPONIN I < 0.015 ng/ml (<0.045)
[2019-08-13 18:07] LABS: CLARITY CLEAR (CLEAR); COLOR YELLOW (YELLOW); PH 6.5 (5.0-9.0); SPECIFIC GRAVITY 1.015 (1.005-1.030)
[2019-08-13 18:08] LABS: BILIRUBIN NEGATIVE (NEGATIVE); BLOOD NEGATIVE (NEGATIVE); EPITHELIAL CELLS 0-2; GLUCOSE NEGATIVE (NEGATIVE); KETONE NEGATIVE (NEGATIVE); LEUKO ESTERASE NEGATIVE (NEGATIVE); NITRITE NEGATIVE (NEGATIVE); UROBILINOGEN 0.2 E.U./dl (0.2-1.0)
[2019-08-13 20:00] VITALS: BP 161/47
[2019-08-13] MEDS ORDERED: PEPCID40 MG PO (21:53)
[2019-08-13] MEDS ORDERED: TERBINAFINE250 MG PO (21:54)
[2019-08-14] VITALS: BP 134/53
[2019-08-14 06:37] LABS: BASO % 0.3 % (0.0-1.0); EOS # 0.2 10*3/uL (0.0-0.4); HEMATOCRIT 35.4 % (42.0-52.0); HEMOGLOBIN 11.4 g/dl (14.0-18.0); LYMPH % 10.7 % (27.0-41.0); MEAN CELL VOLUME 88.7 fl (80.0-94.0); MEAN CORPUSCULAR HGB 28.6 pg (27.0-31.0); MEAN CORPUSCULAR HGB CONC 32.2 g/dl (33.0-37.0); MEAN PLATELET VOLUME 9.9 fl (9.6-12.3); MONO # 0.5 10*3/uL (0.1-1.0); MONO % 5.6 % (3.0-9.0); NEUT # 7.7 10*3/uL (2.3-7.9); NEUT % 81.1 % (47.0-73.0); PLATELET COUNT AUTOMATED 262 10*3/uL (130-400); RED BLOOD COUNT 3.99 10*6/uL (4.50-5.90); RED CELL DISTRI WIDTH 13.7 % (0-14.5); WHITE BLOOD COUNT 9.4 10*3/uL (4.8-10.8)
[2019-08-14 07:04] LABS: ACT PARTIAL THROMBO TIME 32.5 SECONDS (20.0-32.1); INTERNATIONAL NORM RATIO 1.1 (2.0-3.5)
[2019-08-14 07:26] LABS: POTASSIUM 3.8 mmol/L (3.5-5.1)
[2019-08-14 07:34] LABS: CREATININE 1.52 mg/dL (0.70-1.30); FREE T4 1.11 ng/dl (0.76-1.46); THYROID STIM HORMONE (HS) 1.55 uIU/ml (0.358-4.75); TOTAL PROTEIN 7.7 gm/dL (6.4-8.2)
[2019-08-14 08:00] VITALS: BP 140/72
[2019-08-14 08:19] LABS: VITAMIN D, 25-HYDROXY 49.6 ng/mL (30-100)
[2019-08-14 12:00] VITALS: BP 145/59
[2019-08-14 15:16] VITALS: BP 117/51
[2019-08-14 20:00] VITALS: BP 113/58
[2019-08-15] VITALS: BP 140/72
[2019-08-15 06:20] LABS: BASO % 0.5 % (0.0-1.0); EOS # 0.3 10*3/uL (0.0-0.4); EOS % 3.9 % (1.0-4.0); HEMATOCRIT 36.1 % (42.0-52.0); HEMOGLOBIN 11.2 g/dl (14.0-18.0); LYMPH # 0.9 10*3/uL (1.3-4.4); LYMPH % 11.1 % (27.0-41.0); MEAN CELL VOLUME 90.5 fl (80.0-94.0); MEAN CORPUSCULAR HGB 28.1 pg (27.0-31.0); MEAN PLATELET VOLUME 9.7 fl (9.6-12.3); MONO # 0.6 10*3/uL (0.1-1.0); MONO % 7.5 % (3.0-9.0); NEUT # 6.5 10*3/uL (2.3-7.9); NEUT % 76.6 % (47.0-73.0); PLATELET COUNT AUTOMATED 246 10*3/uL (130-400); RED BLOOD COUNT 3.99 10*6/uL (4.50-5.90); RED CELL DISTRI WIDTH 13.9 % (0-14.5); WHITE BLOOD COUNT 8.4 10*3/uL (4.8-10.8)
[2019-08-15 06:52] LABS: CREATININE 1.63 mg/dL (0.70-1.30); POTASSIUM 4.2 mmol/L (3.5-5.1)
[2019-08-15 08:00] VITALS: BP 130/52
[2019-08-15 12:00] VITALS: BP 135/58
[2019-08-15 16:00] VITALS: BP 140/65
[2019-08-15 20:00] VITALS: BP 152/55
[2019-08-16] VITALS: BP 135/51
[2019-08-16 06:38] LABS: BASO % 0.6 % (0.0-1.0); EOS # 0.4 10*3/uL (0.0-0.4); EOS % 5.9 % (1.0-4.0); HEMATOCRIT 33.7 % (42.0-52.0); HEMOGLOBIN 10.5 g/dl (14.0-18.0); LYMPH # 0.7 10*3/uL (1.3-4.4); LYMPH % 10.9 % (27.0-41.0); MEAN CELL VOLUME 89.4 fl (80.0-94.0); MEAN CORPUSCULAR HGB 27.9 pg (27.0-31.0); MEAN CORPUSCULAR HGB CONC 31.2 g/dl (33.0-37.0); MEAN PLATELET VOLUME 9.1 fl (9.6-12.3); MONO # 0.6 10*3/uL (0.1-1.0); MONO % 8.1 % (3.0-9.0); NEUT % 74.2 % (47.0-73.0); PLATELET COUNT AUTOMATED 216 10*3/uL (130-400); RED BLOOD COUNT 3.77 10*6/uL (4.50-5.90); RED CELL DISTRI WIDTH 13.8 % (0-14.5); WHITE BLOOD COUNT 6.8 10*3/uL (4.8-10.8)
[2019-08-16 08:00] VITALS: BP 154/80
[2019-08-16 12:00] VITALS: BP 155/80
[2019-08-16 16:00] VITALS: BP 115/80
[2019-08-16 20:00] VITALS: BP 125/40
[2019-08-17] VITALS: BP 138/66
[2019-08-17 06:16] LABS: BASO # 0.1 10*3/uL (0.0-0.1); BASO % 0.7 % (0.0-1.0); EOS # 0.4 10*3/uL (0.0-0.4); EOS % 5.3 % (1.0-4.0); HEMOGLOBIN 10.6 g/dl (14.0-18.0); LYMPH % 14.3 % (27.0-41.0); MEAN CELL VOLUME 89.7 fl (80.0-94.0); MEAN CORPUSCULAR HGB CONC 31.2 g/dl (33.0-37.0); MEAN PLATELET VOLUME 9.5 fl (9.6-12.3); MONO # 0.6 10*3/uL (0.1-1.0); MONO % 8.4 % (3.0-9.0); PLATELET COUNT AUTOMATED 216 10*3/uL (130-400); RED BLOOD COUNT 3.79 10*6/uL (4.50-5.90); RED CELL DISTRI WIDTH 13.9 % (0-14.5)
[2019-08-17 08:00] VITALS: BP 142/56
[2019-08-17 12:00] VITALS: BP 134/50
[2019-08-17] MEDS ORDERED: KEFLEX500 M1 PO (15:33)
[2019-08-17 16:00] VITALS: BP 144/69
[2019-08-17 20:00] VITALS: BP 161/47
[2019-08-17 23:57] VITALS: BP 129/57
[2019-08-18 08:00] VITALS: BP 144/55
[2019-08-18 12:00] VITALS: BP 154/71
== END 2019-08-18 13:58 | disposition other institution (70) | DRG 300 ==
LOC: ED 15:26 → EDHOLD 17:50 → 5E 17:50
PROVIDERS: Internal Medicine; Nurse Practitioner Family; ADMIT Internal Medicine
DX: E11.51 Type 2 diabetes mellitus with diabetic peripheral angiopathy without gangrene (principal); L03.116 Cellulitis of left lower limb; L97.429 Non-pressure chronic ulcer of left heel and midfoot with unspecified severity; I50.30 Unspecified diastolic (congestive) heart failure; I13.0 Hypertensive heart and chronic kidney disease with heart failure and stage 1 through stage 4 chronic kidney disease, or unspecified chronic kidney disease; M86.679 Other chronic osteomyelitis, unspecified ankle and foot; Z68.41 Body mass index [BMI] 40.0-44.9, adult; E11.621 Type 2 diabetes mellitus with foot ulcer; I25.10 Atherosclerotic heart disease of native coronary artery without angina pectoris; I48.91 Unspecified atrial fibrillation; E78.5 Hyperlipidemia, unspecified; E11.69 Type 2 diabetes mellitus with other specified complication; D64.9 Anemia, unspecified; E55.9 Vitamin D deficiency, unspecified; N18.3 Chronic kidney disease, stage 3 (moderate); E11.42 Type 2 diabetes mellitus with diabetic polyneuropathy; B95.1 Streptococcus, group B, as the cause of diseases classified elsewhere; L97.519 Non-pressure chronic ulcer of other part of right foot with unspecified severity; Z89.422 Acquired absence of other left toe(s); Z95.5 Presence of coronary angioplasty implant and graft; I25.2 Old myocardial infarction; Z79.01 Long term (current) use of anticoagulants; Z86.14 Personal history of Methicillin resistant Staphylococcus aureus infection; Z79.4 Long term (current) use of insulin; Z79.899 Other long term (current) drug therapy; Z79.82 Long term (current) use of aspirin; Z82.49 Family history of ischemic heart disease and other diseases of the circulatory system; Z84.89 Family history of other specified conditions; R74.8 Abnormal levels of other serum enzymes

== ENCOUNTER 2020-01-02 12:51 | Emergency (ER) | payer MEDICARE ==
[~2020-01-02] VITALS: Wt 136.1 kg
[~2020-01-02 12:51] MED LIST changes: +KEFLEX500 M1 PO; +PEPCID40 MG PO; +TERBINAFINE250 MG PO
[2020-01-02 12:54] VITALS: BP 140/51
== END 2020-01-02 13:53 | disposition other institution (70) ==
LOC: ED 12:51
DX: I83.899 Varicose veins of unspecified lower extremity with other complications (principal); I11.0 Hypertensive heart disease with heart failure; I50.9 Heart failure, unspecified; I25.2 Old myocardial infarction; I25.10 Atherosclerotic heart disease of native coronary artery without angina pectoris; E11.9 Type 2 diabetes mellitus without complications; M19.90 Unspecified osteoarthritis, unspecified site; E78.00 Pure hypercholesterolemia, unspecified; I48.91 Unspecified atrial fibrillation; Z79.899 Other long term (current) drug therapy; Z79.82 Long term (current) use of aspirin; Z79.4 Long term (current) use of insulin

== ENCOUNTER 2020-01-02 21:01 | Emergency (ER) | payer MEDICARE ==
[~2020-01-02] VITALS: Ht 175.2 cm; Wt 143.1 kg
[2020-01-02 21:01] VITALS: BP 162/69
[2020-01-02 22:13] LABS: BASO # 0.1 10*3/uL (0.0-0.1); BASO % 0.9 % (0.0-1.0); EOS # 0.3 10*3/uL (0.0-0.4); EOS % 2.5 % (1.0-4.0); HEMATOCRIT 37.7 % (42.0-52.0); LYMPH # 1.5 10*3/uL (1.3-4.4); LYMPH % 14.3 % (27.0-41.0); MEAN CELL VOLUME 90.6 fl (80.0-94.0); MEAN CORPUSCULAR HGB 28.1 pg (27.0-31.0); MONO # 0.9 10*3/uL (0.1-1.0); MONO % 8.3 % (3.0-9.0); NEUT # 7.8 10*3/uL (2.3-7.9); NEUT % 73.7 % (47.0-73.0); PLATELET COUNT AUTOMATED 228 10*3/uL (130-400); RED BLOOD COUNT 4.16 10*6/uL (4.50-5.90); RED CELL DISTRI WIDTH 14.5 % (0-14.5); WHITE BLOOD COUNT 10.5 10*3/uL (4.8-10.8)
== END 2020-01-03 00:22 | disposition other institution (70) ==
LOC: ED 21:01
PROVIDERS: Emergency Medicine Emergency Medical Services
DX: S31.31XA Laceration without foreign body of scrotum and testes, initial encounter (principal); I25.10 Atherosclerotic heart disease of native coronary artery without angina pectoris; E78.5 Hyperlipidemia, unspecified; E11.42 Type 2 diabetes mellitus with diabetic polyneuropathy; M86.9 Osteomyelitis, unspecified; I13.0 Hypertensive heart and chronic kidney disease with heart failure and stage 1 through stage 4 chronic kidney disease, or unspecified chronic kidney disease; E11.22 Type 2 diabetes mellitus with diabetic chronic kidney disease; N18.3 Chronic kidney disease, stage 3 (moderate); I50.30 Unspecified diastolic (congestive) heart failure; Z79.899 Other long term (current) drug therapy; Z79.82 Long term (current) use of aspirin; Z79.4 Long term (current) use of insulin; X58.XXXA Exposure to other specified factors, initial encounter; Y93.89 Activity, other specified; Y92.89 Other specified places as the place of occurrence of the external cause; Y99.8 Other external cause status

== ENCOUNTER 2020-01-19 13:30 | Emergency (ER) | payer MEDICARE ==
[~2020-01-19] VITALS: Ht 175.2 cm; Wt 142.4 kg
[2020-01-19 13:34] VITALS: BP 172/76
[2020-01-19] MEDS ORDERED: OFLOXACIN OTIC5 ML OT (15:22)
[2020-01-19] MEDS ORDERED: CIPRO500 MG PO (15:22)
== END 2020-01-19 13:55 | disposition other institution (70) ==
LOC: ED 13:30
DX: H60.92 Unspecified otitis externa, left ear (principal); I25.10 Atherosclerotic heart disease of native coronary artery without angina pectoris; I25.2 Old myocardial infarction; E11.9 Type 2 diabetes mellitus without complications; I11.0 Hypertensive heart disease with heart failure; I50.9 Heart failure, unspecified; M19.90 Unspecified osteoarthritis, unspecified site; E78.00 Pure hypercholesterolemia, unspecified; Z79.899 Other long term (current) drug therapy; Z79.4 Long term (current) use of insulin; Z79.2 Long term (current) use of antibiotics

== ENCOUNTER → 2021-04-25 | Outpatient (CLI) | payer MEDICARE ==
[~2021-04-25] MED LIST changes: +OFLOXACIN OTIC5 ML OT
[2021-04-25 09:52] LABS: BASO # 0.1 10*3/uL (0.0-0.1); BASO % 0.9 % (0.0-1.0); EOS # 0.2 10*3/uL (0.0-0.4); EOS % 2.4 % (1.0-4.0); HEMATOCRIT 39.2 % (42.0-52.0); LYMPH # 1.4 10*3/uL (1.3-4.4); LYMPH % 16.2 % (27.0-41.0); MEAN CELL VOLUME 90.1 fl (80.0-94.0); MEAN CORPUSCULAR HGB 29.2 pg (27.0-31.0); MEAN CORPUSCULAR HGB CONC 32.4 g/dl (33.0-37.0); MEAN PLATELET VOLUME 9.6 fl (9.6-12.3); MONO # 0.7 10*3/uL (0.1-1.0); MONO % 8.4 % (3.0-9.0); NEUT # 6.1 10*3/uL (2.3-7.9); NEUT % 71.7 % (47.0-73.0); PLATELET COUNT AUTOMATED 289 10*3/uL (130-400); RED BLOOD COUNT 4.35 10*6/uL (4.50-5.90); RED CELL DISTRI WIDTH 13.5 % (0-14.5); WHITE BLOOD COUNT 8.5 10*3/uL (4.8-10.8)
[2021-04-25 10:07] LABS: CREATININE 1.41 mg/dL (0.70-1.30); FREE T4 1.13 ng/dl (0.76-1.46); POTASSIUM 4.5 mmol/L (3.5-5.1); TOTAL PROTEIN 7.7 gm/dL (6.4-8.2)
[2021-04-25 10:12] LABS: THYROID STIM HORMONE (HS) 1.78 uIU/ml (0.358-4.75)
[2021-04-25 13:03] LABS: VITAMIN D, 25-HYDROXY 54.6 ng/mL (30-100)
== END | disposition home or self-care (01) ==
LOC: LAB 09:25
PROVIDERS: ATTEND Internal Medicine
DX: Z13.0 Encounter for screening for diseases of the blood and blood-forming organs and certain disorders involving the immune mechanism (principal); Z13.21 Encounter for screening for nutritional disorder; Z13.1 Encounter for screening for diabetes mellitus; Z13.220 Encounter for screening for lipoid disorders; I25.10 Atherosclerotic heart disease of native coronary artery without angina pectoris; I10 Essential (primary) hypertension; E11.65 Type 2 diabetes mellitus with hyperglycemia; D52.9 Folate deficiency anemia, unspecified; D51.9 Vitamin B12 deficiency anemia, unspecified; R70.0 Elevated erythrocyte sedimentation rate; R79.82 Elevated C-reactive protein (CRP); R74.8 Abnormal levels of other serum enzymes; R79.89 Other specified abnormal findings of blood chemistry; R53.81 Other malaise; E55.9 Vitamin D deficiency, unspecified; E03.9 Hypothyroidism, unspecified